=== PATIENT | female | born 1950 | race Caucasian/White ===

== ENCOUNTER 2017-07-06 14:41 | Observation (INO) ==
[2017-07-06] MEDS ORDERED: Aspirin 81 MG TAB.CHEW PO ONE (14:44)
--- NOTE | 2017-07-06 14:47 | Emergency Department Note ---
Disposition Clinical Impression: Chest pain Qualifiers: Chest pain type: unspecified Qualified Code(s): R07.9 - Chest pain, unspecified Disposition: Admitted As Inpatient Condition: Fair Referrals: Fredy Garcia MD [Primary Care Provider] - Forms: ED Satisfaction Letter Time of Disposition: 17:24 Chest Pain HPI - General Chief Complaint: ED Chest Pain Stated Complaint: chest pain Time Seen by Provider: 07/06/17 14:44 Source: patient, EMS Mode of arrival: EMS Limitations: no limitations Vital Signs Reviewed: Yes Nursing Notes Reviewed: Yes - History of Present Illness HPI Narrative: 67-year-old with a history of previous PA 2 comes in complaining of some intermittent chest pain. She had some chest pain couple days ago. She developed chest pain again today. Risk factors include hypertension, cigarette smoking, family history, high cholesterol. Pt complaint: chest pain Onset (ago): [employer] Duration: constant Onset: during rest Pain Location: substernal, left chest Severity: moderate Quality: tightness, aching, heaviness Pain Radiation: LUE, neck Worsens with: nothing Context: other (Dyspnea) Treatments prior to arrival chest pain: none - Related Data Home Medications Medication Instructions Recorded Confirmed Aspirin 81 mg PO DAILY 04/07/15 04/07/15 Atorvastatin Calcium [Lipitor] 1 tab PO DAILY 04/07/15 04/07/15 Calcium Carbonate [Calcium] 500 mg PO DAILY 04/07/15 04/07/15 Cetirizine HCl [Zyrtec] 1 tab PO DAILY 04/07/15 04/07/15 Clonazepam 1 tab PO DAILY PRN 04/07/15 04/07/15 Cyclobenzaprine HCl 10 tab PO BID PRN 04/07/15 04/07/15 Fluticasone Propionate Nasal 1 spray NS DAILY 04/07/15 04/07/15 [Flonase] Furosemide [Lasix] 20 mg PO DAILY 04/07/15 04/07/15 Hydrocodone/Acetaminophen [Victor 1 tab PO Q6H PRN 04/07/15 04/07/15 5-325 Tablet] Lansoprazole 1 tab PO DAILY 04/07/15 04/07/15 Lidocaine/Aloe Vera [[facility] Aloe 170 gm TP 04/07/15 04/07/15 Vera-Lidocaine Gel] Lisinopril/Hydrochlorothiazide 1 tab PO DAILY 04/07/15 04/07/15 [Lisinopril-Hctz 20-12.5 mg Tab] Metoprolol Succinate [Toprol Xl] 1 tab PO DAILY 04/07/15 04/07/15 Nicotine Patch 1 / DAILY 04/07/15 04/07/15 Potassium Chloride 10 meq PO DAILY 04/07/15 04/07/15 Venlafaxine HCl 1 tab PO DAILY 04/07/15 04/07/15 Previous Rx's Medication Instructions Recorded GuaiFENesin Liq [Robitussin Liq] 200 mg PO Q6HR 10 Days mls 04/09/15 Levofloxacin [Levaquin] 500 mg PO DAILY #7 tablet 04/09/15 predniSONE [Prednisone] 2.5 mg PO DAILY #7 tablet 04/09/15 methylPREDNISolone [Medrol] 4 mg PO DAILY 6 Days tablet 12/02/15 Meloxicam 7.5 mg PO DAILY 7 Days tablet 05/13/16 Diclofenac Sodium [Voltaren] 50 mg PO BID #30 tablet. 04/01/17 PredniSONE [Deltasone] 20 mg PO DAILY #12 tablet 04/01/17 Allergies Allergy/AdvReac Type Severity Reaction Status Date / Time clarithromycin [From Biaxin] Allergy Anaphylaxis Verified 12/02/15 16:04 codeine AdvReac Vomiting Verified 04/22/15 23:15 morphine AdvReac Anaphylaxis Verified 04/22/15 23:16 All systems ED: reviewed and negative except as stated. Constitutional: Denies: fever, chills, weakness, weight change Eyes: Denies: eye pain, eye discharge, vision change ENT ED: Denies: ear pain, throat pain, dental pain, hearing loss, epistaxis, congestion, dysphagia Cardiovascular: Reports: chest pain. Denies: palpitations, dyspnea on exertion , edema, syncope Respiratory: Reports: dyspnea. Denies: cough, wheezes, hemoptysis, stridor Gastrointestinal: Denies: abdominal pain, nausea, vomiting, diarrhea, constipation, hematemesis, melena, hematochezia Genitourinary: Denies: dysuria, frequency, hematuria, discharge Musculoskeletal: Denies: back pain, neck pain, arthralgia, myalgia Integumentary: Denies: rash, abrasion, lesions Neurological: Denies: headache, weakness, numbness, paresthesias, confusion, abnormal gait, vertigo Psychiatric: Denies: anxiety, depression, suicidal thoughts, homicidal thoughts , auditory hallucinations, visual hallucinations Endocrine: Denies: fatigue Hematological/Lymphatic: Denies: easy bleeding, easy bruising Allergic/Immunologic: Denies: facial swelling, urticaria Chest Pain PMH - Past Medical History Medical history: Reports: hypertension Surgical history: Reports: appendectomy, cholecystectomy, hysterectomy, other Psychiatric history: Reports: anxiety INFO SPECIALIST history: Reports: no INFO SPECIALIST history - Social History Smoking Status: Current every day smoker Alcohol use: Reports: none Drug use: Reports: none Physical Exam - General Limitations: no limitations General appearance: alert, in no apparent distress - Head Head exam: atraumatic, normocephalic, normal inspection - Eye Eye exam: Present: normal appearance, PERRL, EOMI - ENT ENT exam: normal exam, normal oropharynx, mucous membranes moist - Neck Neck exam: Present: normal inspection, full ROM, trachea midline - Chest Chest inspection: Present: normal inspection, symmetric chest wall rise - Respiratory Respiratory exam: Present: normal lung sounds bilaterally - Cardiovascular Cardiovascular exam: Present: regular rate, normal rhythm, normal heart sounds - Abdominal Exam Abdominal exam: Present: soft, Non-Tender. Absent: tenderness, distention, guarding, rebound, rigidity - Extremities Exam Extremities exam: Present: normal inspection, full ROM. Absent: tenderness, pedal edema - Expanded Lower Extremity Exam Neurovascular/Tendon exam: Absent: motor deficit, sensory deficit, tendon deficit Gait: observed and normal - Back Exam Back exam: Present: normal inspection, full ROM. Absent: tenderness - Neurological Exam Neurological exam: Present: alert, oriented X3 - Psychiatric Psychiatric exam: Present: normal affect, normal mood - Skin Skin exam: Present: warm, dry, intact, normal color Course - Reevaluation(s) Reevaluation #1: 67-year-old female who is complaining of chest pain with risk factors. Patient will be admitted for further evaluation and treatment. Time: 17:23 - Consultations Consultation #1: Discussed with , admit. Time: 17:23 Vital Signs Temperature 98.4 F 07/06/17 14:44 Pulse Rate 96 07/06/17 14:44 Respiratory Rate 16 07/06/17 14:44 Blood Pressure 141/78 07/06/17 14:44 O2 Sat by Pulse Oximetry 96 07/06/17 14:44 Temperature 98.4 F 07/06/17 14:44 Pulse Rate 98 07/06/17 16:38 Respiratory Rate 18 07/06/17 16:38 Blood Pressure 141/70 07/06/17 16:38 O2 Sat by Pulse Oximetry 98 07/06/17 16:38 Oxygen Delivery Oxygen Delivery Room Air Chest Pain - Lab Data Lab results reviewed: Yes I reviewed the patient's lab results. Result diagrams: 07/06/17 14:58 07/06/17 14:58 Lab Results 07/06/17 07/06/17 07/06/17 Range/Units 14:58 14:58 14:58 WBC 11.5 H (4.3-11.1) K/mcL RBC 5.23 H (3.82-4.97) M/mcL Hgb 14.9 (11.5-15.4) g/dL Hct 44.3 (35.3-44.9) % MCV 84.7 (83.0-100.0) fL MCH 28.5 (28.0-33.3) pg MCHC 33.6 (31.6-35.5) g/dL RDW 13.4 (11.5-14.5) % Plt Count 254 (140-400) K/mcL MPV 11.3 (9.4-12.4) fL Immature Gran % 0.4 (0-4) % Seg Neutrophils % 66.0 % Lymphocytes % 23.4 % Monocytes % 7.7 % Eosinophils % 2.2 % Basophils % 0.3 % Neutrophils # 7.6 (1.6-8.9) K/mcL Lymphocytes # 2.7 (0.6-4.6) K/mcL Monocytes # 0.9 (0.0-1.3) K/mcL Eosinophils # 0.3 (0.0-0.6) K/mcL Basophils # 0.0 (0.0-0.2) K/mcL PT 11.0 (9.4-12.1) Seconds INR 1.0 APTT 34.0 (26.0-36.0) Seconds Sodium (136-145) mEq/L Potassium (3.5-4.5) mEq/L Chloride (98-109) mEq/L Carbon Dioxide (19-29) mEq/L BUN (7-20) mg/dL Creatinine (0.57-1.11) mg/dL Est GFR ( Amer) (> 60) Est GFR (Non-Af Amer) (> 60) BUN/Creatinine Ratio (6-26) Glucose (70-99) mg/dL Calculated Osmolality (280-300) Calcium (8.6-10.8) mg/dL Troponin I (0-0.03) ng/mL B-Natriuretic Peptide 11 (0-100) pg/mL 07/06/17 07/06/17 Range/Units 14:58 14:58 WBC (4.3-11.1) K/mcL RBC (3.82-4.97) M/mcL Hgb (11.5-15.4) g/dL Hct (35.3-44.9) % MCV (83.0-100.0) fL MCH (28.0-33.3) pg MCHC (31.6-35.5) g/dL RDW (11.5-14.5) % Plt Count (140-400) K/mcL MPV (9.4-12.4) fL Immature Gran % (0-4) % Seg Neutrophils % % Lymphocytes % % Monocytes % % Eosinophils % % Basophils % % Neutrophils # (1.6-8.9) K/mcL Lymphocytes # (0.6-4.6) K/mcL Monocytes # (0.0-1.3) K/mcL Eosinophils # (0.0-0.6) K/mcL Basophils # (0.0-0.2) K/mcL PT (9.4-12.1) Seconds INR APTT (26.0-36.0) Seconds Sodium 141 (136-145) mEq/L Potassium 3.1 L (3.5-4.5) mEq/L Chloride 100 (98-109) mEq/L Carbon Dioxide 29 (19-29) mEq/L BUN 19 (7-20) mg/dL Creatinine 1.22 H (0.57-1.11) mg/dL Est GFR ( Amer) 53 L (> 60) Est GFR (Non-Af Amer) 44 L (> 60) BUN/Creatinine Ratio 16 (6-26) Glucose 138 H (70-99) mg/dL Calculated Osmolality 296 (280-300) Calcium 9.8 (8.6-10.8) mg/dL Troponin I 0.01 (0-0.03) ng/mL B-Natriuretic Peptide (0-100) pg/mL Heart Score - Score History: Moderately Suspicious EKG: Non Specific repolarisation Disturbance Age: Greater than 65 Risk Factors: Equal/Greater than 3 risk factor or history of atherosclerotic disease Troponin: Less than normal limit HEART Score Total: 6
[2017-07-06] MEDS ORDERED: Ipratropium/Albuterol Neb 3 ML IH ONE (14:48)
[2017-07-06 15:08] LABS: Basophils % 0.3 %; Eosinophils # 0.3 K/mcL (0.0-0.6); Eosinophils % 2.2 %; Hematocrit 44.3 % (35.3-44.9); Hemoglobin 14.9 g/dL (11.5-15.4); Immature Granulocytes % 0.4 % (0-4); Lymphocytes # 2.7 K/mcL (0.6-4.6); Lymphocytes % 23.4 %; Mean Corpuscular HGB Conc 33.6 g/dL (31.6-35.5); Mean Corpuscular Hemoglobin 28.5 pg (28.0-33.3); Mean Corpuscular Volume 84.7 fL (83.0-100.0); Mean Platelet Volume 11.3 fL (9.4-12.4); Monocytes # 0.9 K/mcL (0.0-1.3); Monocytes % 7.7 %; Neutrophils # 7.6 K/mcL (1.6-8.9); Platelet Count 254 K/mcL (140-400); Red Blood Count 5.23 M/mcL (3.82-4.97); Red Cell Distribution Width 13.4 % (11.5-14.5)
[2017-07-06 15:21] LABS: Calcium 9.8 mg/dL (8.6-10.8); Potassium 3.1 mEq/L (3.5-4.5)
[2017-07-06] MEDS ORDERED: Acetaminophen 325 MG TABLET PO PRN (21:48)
[2017-07-06] MEDS ORDERED: Naloxone 0.4 MG/ML INJ IVP PRN (21:48)
[2017-07-06] MEDS ORDERED: Ondansetron 4 MG/2 ML VIAL IVP PRN (21:48)
[2017-07-06] MEDS ORDERED: Ipratropium/Albuterol Neb 3 ML IH PRN (21:53)
--- NOTE | 2017-07-06 22:03 | Internal Med History&Physical ---
<Fredy Ching - Last Filed: 07/06/17 22:30> Date of Encounter: 07/06/17 Time of Encounter: 21:00 Assessment and Plan (1) Chest pain Current visit: Yes Status: Acute Pt. reports chest pain that began Wednesday as pain in central chest that radiated to center of back and down left arm. Patient has previous history of MIs 2 w/ o stent placement but no recent history of echocardiogram or stress test. Initial troponin 0.01. Will trend 2. Continuous cardiac telemetry. Supplemental O2 with titration and SPO2 monitoring. Nitroglycerin PRN. Cardiac diet. Echocardiogram. Nothing by mouth at midnight for a.m. nuclear pharm stress test. Monitor pt. and VS for signs of increasing cardiac and/or respiratory distress. Pt. at high risk for cardiac event based on current sx, previous MIs x2, hx, and risk factors. Observation. Qualifiers: Chest pain type: unspecified Qualified Code(s): R07.9 - Chest pain, unspecified (2) HTN (hypertension) Current visit: Yes Status: Chronic Hx of chronic HTN. Monitor pt. and VS. Continue patient's metoprolol and lisinopril/hydrochlorothiazide. Qualifiers: Hypertension type: essential hypertension Qualified Code(s): I10 - Essential (primary) hypertension (3) HLD (hyperlipidemia) Current visit: Yes Status: Chronic Hx of chronic HLD. Pt. does not currently take a statin. Lipid panel in a.m. labs. Add Lipitor 20 mg daily. Qualifiers: Hyperlipidemia type: pure hypercholesterolemia Qualified Code(s): E78.00 - Pure hypercholesterolemia, unspecified; E78.0 - Pure hypercholesterolemia (4) Previous myocardial infarction older than 8 weeks Current visit: Yes Status: Resolved Hx of previous VT x2. Patient placed on continuous cardiac telemetry. Continue patient's metoprolol, lisinopril/hydrochlorothiazide, and aspirin therapy. (5) Anxiety Current visit: Yes Status: Chronic Hx of chronic anxiety. Continue patient's Effexor and Klonopin. (6) DVT prophylaxis Current visit: Yes Status: Acute Bilateral SCDs on LEs for DVT prophylaxis d/t pts. report of melena yesterday. Fecal hemoccult ordered. Monitor pt. for signs of bleeding. Internal Medicine - H&P: HPI Chief complaint: Chest pain Admitted From: Emergency Dept Plans for Post Hospital Care: Home History of present illness: Ms. Gottlieb is a 67 year old female with medical history of hypertension, previous VT 2 without stent placement, melanoma, each LD presents to ED with chief complaint of centralized chest pain that began Wednesday and has been intermittent with pain on central chest radiating to central back and down left arm. Patient reports pain is followed by twinge sensation in chest retractors include tobacco abuse, HTN, and HLD. Patient reports nausea and vomiting on Wednesday with fever which resolved. Also reports black stool yesterday x1. Patient denies recent illness, fever, chills, abdominal pain, palpitations, changes in vision, weakness, numbness, tingling, headache, diarrhea, constipation, shortness of breath, pre-syncope, or syncope. Past Med Surg Social Fam HX - Past Medical History Source: patient, old records reviewed Medical history: hyperlipidemia, hypertension, myocardial infarction (x2), other (Melanoma) Psychiatric history: anxiety - Past Surgical History Surgical History: appendectomy, cholecystectomy, hysterectomy, other - Social History Smoking Status: Current every day smoker Packs per day: 1/2 PPD Smokeless Tobacco Status: No Alcohol use: none Drug use: none Current living situation: Home, With Family Activity Level: Independent ambulation Recent Out of Country Travel Within the Last 8 Weeks: No Exposure or Possible Exposure to Illness During Travel: No - Family History Father Adopted: No Race: Family Member Ethnicity: Non- Living Status: Age at : 96 Cause of : Old age Mother Race: Family Member Ethnicity: Non- Living Status: Age at : 72 Cause of : in surgery Hx Family Cardiac Disorders: Yes (CAD) Brother Race: Family Member Ethnicity: Non- Living Status: Still Living Hx Family Cancer: Yes (Melanoma) Sister Race: Family Member Ethnicity: Non- Living Status: Still Living Hx Family Cancer: Yes (Bone) Internal Medicine - H&P: Meds Aspirin 81 mg PO DAILY 04/07/15 [History] Cetirizine HCl [Zyrtec] 10 mg PO DAILY 04/07/15 [History] Cyclobenzaprine [Flexeril] 10 mg PO BID #0 04/07/15 [History] Lansoprazole [Prevacid] 30 mg PO DAILY #0 04/07/15 [History] Lisinopril/Hydrochlorothiazide [Lisinopril-Hctz 20-12.5 mg Tab] 1 tab PO BID 05/14 [History] clonazePAM [Klonopin] 1 mg PO BID #0 04/07/15 [History] Albuterol Sulfate [Ventolin Hfa] 2 puff IH Q4H PRN 07/06/17 [History] Metoprolol XL (24 HR) Succ [Toprol XL] 25 mg PO DAILY 07/06/17 [History] Venlafaxine XR (24 HR) [Effexor XR] 150 mg PO DAILY 07/06/17 [History] 3 Allergy/AdvReac Type Severity Reaction Status Date / Time clarithromycin [From Biaxin] Allergy Anaphylaxis Verified 12/02/15 16:04 codeine AdvReac Vomiting Verified 04/22/15 23:15 morphine AdvReac Anaphylaxis Verified 04/22/15 23:16 All Systems PM: A 10-system review of systems was performed and is negative for pertinent findings except as documented above in the HPI. - Constitutional Constitutional: no chills, no fever(s), no night sweats - EENT Eyes: no change in vision, no discharge, no pain, no photophobia Ears: no ear discharge, no ear pain, no tinnitus Nose, mouth and throat: no dysphagia, no nasal discharge, no neck pain, no sore throat - Breasts Breasts: as per HPI - Cardiovascular Cardiovascular ROS IM: as per HPI, chest pain - Respiratory Respiratory: no cough, no dyspnea, no wheezing, no excessive phlegm production - Gastrointestinal Gastrointestinal: as per HPI, melena, nausea, vomiting, no abdominal pain, no diarrhea, no hematemesis, no hematochezia - Genitourinary Genitourinary: no change in urinary stream, no dysuria, no flank pain, no hematuria Menstruation: post hysterectomy - Musculoskeletal Musculoskeletal ROS IM: no numbness, no tingling - Integumentary Integumentary IM: no rash, no unusual bruising - Neurological Neurological ROS: no confusion, no convulsions, no focal weakness, no numbness, no tingling, no tremor(s) - Psychiatric Psychiatric: as per HPI - Endocrine Endocrine IM: as per HPI - Hematologic/Lymphatic Hematologic/Lymphatic: no easy bruising - Allergic/Immunologic Allergic/Immunologic: as per HPI - Constitutional Vitals: Temp Pulse Resp BP Pulse Ox 98.4 F 95 18 130/84 95 07/06/17 14:44 07/06/17 20:13 07/06/17 20:13 07/06/17 20:13 07/06/17 20:13 General appearance: Present: cooperative, A&O X 3, pleasant, no acute distress, answers questions appropriately - Head Head exam: Present: atraumatic, normocephalic - Eye Eye exam: Present: PERRL, conjuntiva pink, sclera anicteric Pupils: Present: PERRL - ENT ENT exam: Present: normal exam, normal external ear exam - Neck Neck exam general surgery: Present: normal inspection, supple, trachea midline. Absent: lymphadenopathy - Cardiovascular Cardiovascular exam: Present: RRR, +S1, +S2. Absent: diastolic murmur, gallop, rubs, systolic murmur - GI/Abdominal GI/Abdominal exam: Present: normal bowel sounds, soft, no peritoneal signs. Absent: distended, tenderness - Rectal Rectal exam: Present: deferred - Additional comments: exam deferred. - Extremities Exam Extremities exam: Present: warm, radial pulses palpable and symmetrical. Absent : calf tenderness, cyanotic, pedal edema - Back Exam Back exam: Present: normal inspection - Neurological Exam Neurological exam: Present: CN II-XII intact, oriented X3, no focal deficits. Absent: pronater drift, facial droop, speech deficit - Psychiatric Psychiatric exam: Present: normal affect, normal mood - Skin Skin exam: Present: dry, intact Internal Med - H&P Results - Labs CBC & Chem 7: 07/06/17 14:58 07/06/17 14:58 Labs: Cardiac Enzymes 07/06/17 Range/Units 17:59 Troponin I 0.01 (0-0.03) ng/mL - EKG Data EKG shows normal: sinus rhythm - EKG Data Prior EKG available for review: no Interpretation IM: normal EKG EKG comments: 07/06/17 22:14 EKG dated 07/06/17 shows sinus rhythm and normal ECG. - Diagnostic Studies Chest x-ray Additional comments: Impressions Chest X-Ray 07/06/17 14:44 IMPRESSION: Mild asymmetric opacity within the right upper lung. While this may be artifactual due to overlying structures or scarring, lung nodule not excluded. Dedicated chest CT recommended for further evaluation on a nonemergent basis. D/ / Edyta Soriano MD / Edyta Soriano MD Interpreting Provider: Edyta Soriano MD <LaurenGerson - Last Filed: 07/07/17 03:26> Date of Encounter: 07/07/17 Internal Medicine - H&P: HPI History of present illness: Ms. Gottlieb is a 67 year old female All Systems PM: A 10-system review of systems was performed and is negative for pertinent findings except as documented above in the HPI. - Constitutional Vitals: Temp Pulse Resp BP Pulse Ox 97.5 F L 92 16 119/68 94 07/06/17 23:37 07/06/17 23:37 07/06/17 23:37 07/06/17 23:37 07/06/17 23:37 Internal Med - H&P Results - Labs CBC & Chem 7: 07/06/17 14:58 07/06/17 14:58 Labs: Cardiac Enzymes 07/06/17 07/06/17 Range/Units 17:59 22:44 Troponin I 0.01 0.01 (0-0.03) ng/mL - Attending Attestation Discussed with RASHMI and agree with assessment and plan below Cardiac biomarkers are negative 3 Stress tests and echocardiogram pending to rule out ACS Will give potassium replacements for hypokalemia.
[2017-07-06] MEDS ORDERED: Nitroglycerin 0.4 MG TAB.SUBL SL PRN (22:22)
[2017-07-07] MEDS: Pantoprazole 40 MG VIAL IVP SCH ×2 (01:20→06:09)
[2017-07-07] MEDS: clonazePAM 1 MG TABLET PO SCH ×3 (01:23→19:44)
[2017-07-07 05:38] LABS: Basophils # 0.1 K/mcL (0.0-0.2); Basophils % 0.4 %; Eosinophils # 0.3 K/mcL (0.0-0.6); Eosinophils % 2.6 %; Hematocrit 40.3 % (35.3-44.9); Hemoglobin 13.6 g/dL (11.5-15.4); Immature Granulocytes % 0.4 % (0-4); Lymphocytes # 3.4 K/mcL (0.6-4.6); Lymphocytes % 29.2 %; Mean Corpuscular HGB Conc 33.7 g/dL (31.6-35.5); Mean Corpuscular Hemoglobin 28.2 pg (28.0-33.3); Mean Corpuscular Volume 83.6 fL (83.0-100.0); Mean Platelet Volume 11.3 fL (9.4-12.4); Monocytes # 1.1 K/mcL (0.0-1.3); Monocytes % 8.9 %; Neutrophils # 6.9 K/mcL (1.6-8.9); Platelet Count 252 K/mcL (140-400); Red Blood Count 4.82 M/mcL (3.82-4.97); Red Cell Distribution Width 13.3 % (11.5-14.5); Segmented Neutrophils % 58.5 %
[2017-07-07 06:06] LABS: Albumin 3.4 g/dL (3.5-5.0); Bilirubin,Total 0.6 mg/dL (0.2-1.2); Calcium 9.1 mg/dL (8.6-10.8); Chol/HDL Ratio 5.6 (0-4.9); Globulin 3.5 g/dL (2.4-3.5); Magnesium 1.5 mg/dL (1.6-2.6); Total Protein 6.9 g/dL (6.0-8.3)
[2017-07-07] MEDS ORDERED: Regadenoson 0.4 MG/5 ML SYRINGE IVP ONE (06:07)
[2017-07-07] MEDS ORDERED: 0.9 % Sodium Chloride 500 ML ONE (06:16)
[2017-07-07] MEDS ORDERED: clonazePAM 1 MG TABLET PO SCH (09:00)
[2017-07-07] MEDS: Loratadine 10 MG TABLET PO SCH (11:01)
[2017-07-07] MEDS: Venlafaxine XR (24 HR) 150 MG CAP.ER.24H PO SCH (11:01)
[2017-07-07] MEDS: Aspirin 81 MG TAB.CHEW PO SCH (11:01)
[2017-07-07] MEDS: Metoprolol XL (24 HR) Succ 25 MG TAB.ER.24H PO SCH (11:02)
[2017-07-07] MEDS: Lisinopril-HCTZ 20-12.5mg TABLET PO SCH ×2 (11:02→19:44)
[2017-07-07] MEDS: 0.9 % Sodium Chloride 1,000 ML IVC SCH (11:06)
--- NOTE | 2017-07-07 15:04 | Internal Med Progress Note ---
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 Current Visit: Yes Status: Acute (3) Chest pain Current Visit: Yes Status: Acute Qualifiers: Chest pain type: unspecified Qualified Code(s): R07.9 - Chest pain, unspecified (4) HTN (hypertension) Current Visit: Yes Status: Chronic Qualifiers: Hypertension type: essential hypertension Qualified Code(s): I10 - Essential (primary) hypertension (5) HLD (hyperlipidemia) Current Visit: Yes Status: Chronic Qualifiers: Hyperlipidemia type: pure hypercholesterolemia Qualified Code(s): E78.00 - Pure hypercholesterolemia, unspecified; E78.0 - Pure hypercholesterolemia - Subjective Interval history: Admitted for left-sided chest pain radiating to her left and shoulder and neck and also going to her back. 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 Her previous stress tests were also negative. Today her stress test is negative showing an EF of about 70% and echocardiogram confirms the same without any wall valvular abnormality. Specifically pinpoints to reproducible pain in the lower substernal area at the costovertebral chondral junction at 6, 7, and 8 ribs. Chest pain is reproducible and very tender in that area mild tenderness in epigastrium though. No rebound no organomegaly. Also complaining of left shoulder pain and unable to lift or abduct her left arm. Examination shows tenderness at deltoid and trapezius on the left side. Physical therapy ordered as well as ibuprofen. Left shoulder x-ray ordered. Chest pain is very reproducible after he applied pressure on the costochondral joints and ribs. Very atypical for angina. Apparently having some remodeling at home but denies any strenuous activity or lifting any heavy weights. Chest x-ray showed right upper lobe infiltrates of unclear etiology. A CT chest with contrast ordered to rule out any malignancy. She has history of melanoma which was surgically treated in the past. - Constitutional Vitals: Temp Pulse Resp BP Pulse Ox 97.8 F 85 18 132/90 98 07/07/17 11:26 07/07/17 11:26 07/07/17 11:26 07/07/17 11:26 07/07/17 11:26 General appearance: Present: cooperative, A&O X 3, pleasant, no acute distress, answers questions appropriately - Head Head exam: Present: atraumatic, normocephalic - Eye Eye exam: Present: PERRL, conjuntiva pink, sclera anicteric Pupils: Present: PERRL - Neck Neck exam general surgery: Present: supple, trachea midline. Absent: lymphadenopathy - Respiratory Respiratory exam: Present: CTAB. Absent: accessory muscle use, rales, rhonchi, wheezes Additional comments: Tenderness at left sixth, seventh and eighth costochondral joint which are very tender and easily reproducible and the pain extends into the rib cage. However still have symmetrical breathing. No wheezing or pleural rub - Cardiovascular Cardiovascular exam: Present: RRR, +S1, +S2. Absent: diastolic murmur, gallop, rubs, systolic murmur - GI/Abdominal GI/Abdominal exam: Present: normal bowel sounds, soft, no peritoneal signs. Absent: distended, tenderness - Extremities Exam Extremities exam: Present: warm, radial pulses palpable and symmetrical. Absent : calf tenderness, cyanotic, pedal edema - Neurological Exam Neurological exam: Present: CN II-XII intact, oriented X3, no focal deficits. Absent: pronater drift, facial droop, speech deficit - Skin Skin exam: Present: dry, intact Internal Medicine: Result - Labs CBC & Chem 7: 07/07/17 04:44 07/07/17 04:44 Labs: Short CBC 07/07/17 Range/Units 04:44 WBC 11.8 H (4.3-11.1) K/mcL Hgb 13.6 (11.5-15.4) g/dL Hct 40.3 (35.3-44.9) % Plt Count 252 (140-400) K/mcL Neutrophils # 6.9 (1.6-8.9) K/mcL BMP 07/07/17 04:44 Sodium 140 Potassium 3.0 L Chloride 103 Carbon Dioxide 24 BUN 21 H Creatinine 1.14 H Glucose 114 H Calcium 9.1 Cardiac Enzymes 07/06/17 07/06/17 07/07/17 Range/Units 17:59 22:44 04:44 Troponin I 0.01 0.01 0.00 (0-0.03) ng/mL Liver Function 07/07/17 Range/Units 04:44 Total Bilirubin 0.6 (0.2-1.2) mg/dL AST 21 (5-34) Units/L ALT 21 (0-55) Units/L Alkaline Phosphatase 118 (38-126) Units/L Albumin 3.4 L (3.5-5.0) g/dL - ABG Interpretation ABG results: PT/INR, D-dimer PT 11.0 Seconds (9.4-12.1) 07/06/17 14:58 - Impressions Impressions Echocardiogram 07/07/17 21:50 Impressions: LVEF 60%. Not all LV segments were well visualized, but overall function appears normal. Normal LV chamber size and wall thickness. Mild left ventricular diastolic dysfunction. Normal right ventricular structure and function. Unable to estimate RVSP due to lack of TR jet. No significant valvular dysfunction. Left Ventricular Wall Motion: Rest Echo Findings The apical inferior, mid inferior and basal inferior wheeler were not visualized. All other wall segments showed normal motion. Findings: Study Quality * Technically sub-optimal due to poor echocardiographic windows. ECG Findings * Normal sinus rhythm. Left Ventricle * LVEF 60%. Not all LV segments were well visualized, but overall function appears normal. * Normal LV chamber size and wall thickness. * Mild left ventricular diastolic dysfunction. Right Ventricle * Normal right ventricular structure and function. Left Atrium * Normal left atrial size. Right Atrium * Normal right atrial size. Interatrial Septum * Interatrial septum not well evaluated. Aortic Valve * Aortic valve not well visualized. * No aortic regurgitation. * No aortic stenosis. Mitral Valve * Normal mitral valve structure and function. * No mitral regurgitation. * No mitral stenosis. Tricuspid Valve * Normal tricuspid valve structure and function. * No tricuspid regurgitation. * Unable to estimate RVSP due to lack of TR jet. Pulmonic Valve * Pulmonic valve not well visualized. * No pulmonic regurgitation. Aorta * Normally sized aortic root. Pericardium * The pericardium appears normal. IVC * Normal IVC dimensions and inspiratory collapse. Pulmonary Artery * Normal visualized portions of the main pulmonary artery. Consult Discharge Plan - Plan Referrals: Fredy Garcia MD [Primary Care Provider] - 07/13/17 1:00 pm
[2017-07-07] MEDS: Ibuprofen 600 MG TABLET PO SCH ×2 (15:53→23:45)
--- NOTE | 2017-07-07 19:08 | Electrocardiograph Report ---
[place] [id number] Test Date: 2017-07-06 Pat Name: Netta Gottlieb Department: 102 Room: 3B21 Gender: F Brick Tender: Tmr : 1950 Requested By: Raj Bravo Order Number: [id number] Reading MD: Erik Veras MD Measurements Intervals [place] Rate: 96 P: 62 ND: 139 QRS: 42 QRSD: 89 T: 46 QT: 362 QTc: 415 Interpretive Statements SINUS RHYTHM BASELINE ARTIFACT Electronically Signed On 07-07-2017 19:06:55 EST by Erik Veras MD
[2017-07-08] MEDS: 0.9 % Sodium Chloride 1,000 ML IVC SCH (03:25)
[2017-07-08 04:51] LABS: Basophils % 0.4 %; Eosinophils # 0.3 K/mcL (0.0-0.6); Eosinophils % 3.7 %; Hematocrit 35.2 % (35.3-44.9); Immature Granulocytes % 0.4 % (0-4); Lymphocytes # 3.3 K/mcL (0.6-4.6); Lymphocytes % 38.5 %; Mean Corpuscular Hemoglobin 28.1 pg (28.0-33.3); Mean Corpuscular Volume 85.2 fL (83.0-100.0); Mean Platelet Volume 11.2 fL (9.4-12.4); Monocytes # 0.7 K/mcL (0.0-1.3); Monocytes % 8.3 %; Neutrophils # 4.2 K/mcL (1.6-8.9); Platelet Count 199 K/mcL (140-400); Red Blood Count 4.13 M/mcL (3.82-4.97); Red Cell Distribution Width 13.1 % (11.5-14.5); Segmented Neutrophils % 48.7 %
[2017-07-08 05:04] LABS: Hemoglobin 11.6 g/dL (11.5-15.4)
[2017-07-08 05:17] LABS: Bilirubin,Total 0.5 mg/dL (0.2-1.2); Calcium 8.3 mg/dL (8.6-10.8); Globulin 2.9 g/dL (2.4-3.5); Potassium 3.8 mEq/L (3.5-4.5); Total Protein 5.9 g/dL (6.0-8.3)
[2017-07-08] MEDS: Pantoprazole 40 MG VIAL IVP SCH (05:45)
[2017-07-08 07:09] VITALS: BP 129/69
--- NOTE | 2017-07-08 08:22 | Discharge Summary ---
Date of Encounter: 07/08/17 Time of Encounter: 08:17 - Discharge Diagnosis (1) Costochondritis, acute Priority: Secondary Status: Acute (2) 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 Priority: Secondary Status: Acute (3) Chest pain Priority: Primary Status: Acute Qualifiers: Chest pain type: unspecified Qualified Code(s): R07.9 - Chest pain, unspecified (4) HTN (hypertension) Priority: Secondary Status: Chronic Qualifiers: Hypertension type: essential hypertension Qualified Code(s): I10 - Essential (primary) hypertension (5) HLD (hyperlipidemia) Priority: Secondary Status: Chronic Qualifiers: Hyperlipidemia type: pure hypercholesterolemia Qualified Code(s): E78.00 - Pure hypercholesterolemia, unspecified; E78.0 - Pure hypercholesterolemia - Discharge Medications Prescriptions: Atorvastatin [Lipitor] 10 mg PO HS #30 tablet Lisinopril [Zestril] 20 mg PO BID #60 tablet Home Medications: Aspirin 81 mg PO DAILY 04/07/15 [History] Cetirizine HCl [Zyrtec] 10 mg PO DAILY 04/07/15 [History] Lansoprazole [Prevacid] 30 mg PO DAILY #0 04/07/15 [History] clonazePAM [Klonopin] 1 mg PO BID #0 04/07/15 [History] Albuterol Sulfate [Ventolin Hfa] 2 puff IH Q4H PRN 07/06/17 [History] Metoprolol XL (24 HR) Succ [Toprol Xl] 25 mg PO DAILY 07/06/17 [History] Venlafaxine XR (24 HR) [Effexor Xr] 150 mg PO DAILY 07/06/17 [History] Acetaminophen [Tylenol] 650 mg PO Q6HR PRN tablet 07/08/17 [Rx] Atorvastatin [Lipitor] 10 mg PO HS #30 tablet 07/08/17 [Rx] Lisinopril [Zestril] 20 mg PO BID #60 tablet 07/08/17 [Rx] Allergies/Adverse Reactions: 3 Allergy/AdvReac Type Severity Reaction Status Date / Time clarithromycin [From Biaxin] Allergy Anaphylaxis Verified 12/02/15 16:04 codeine AdvReac Vomiting Verified 04/22/15 23:15 morphine AdvReac Anaphylaxis Verified 04/22/15 23:16 Procedures/tests Complete & Pending: Procedures Performed prior 72 hours Category Date Time Status CT chest w con [CT] Routine Cat Scan 07/07/17 14:30 Completed NM robyn perf SPECT multi [NM] Routine Exams 07/07/17 10:00 Taken EV echocardiogram Stat Y 07/07/17 21:50 Completed SP pharm nuclear stress Stat Y 07/07/17 07:10 Completed Date of admission: 07/06/17 17:58 Primary care physician: Fredy Garcia MD Consults: 07/07/17 14:56 PT [Consult to Physical Therapy] [CONS] Routine Comment: Evaluate, develop and implement POC Reason for Consult: Left shoulder rotator cuff injury Discharging clinician: Della Keen Anticipated date of discharge: 07/08/17 - Patient Status Disposition: Home, Self-Care Condition: Fair Overall status at discharge: patient is progressing back to baseline - Discharge Instructions Follow Up With: Fredy Garcia MD [Primary Care Provider] - - Diet and Activity Activity: resume usual activities as tolerated Diet: advance to your usual diet, low fat, low cholesterol, low salt diet Hospital course: Ms. Gottlieb is a 67 year old female Admitted for left-sided chest pain radiating to her left and shoulder and neck and also going to her back. 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 Chest pain is very reproducible after he applied pressure on the costochondral joints and ribs. Very atypical for angina. Apparently having some remodeling at home but denies any strenuous activity or lifting any heavy weights. Her previous stress tests were also negative. Today her stress test is negative showing an EF of about 70% and echocardiogram confirms the same without any wall motion abnormality or valvular abnormality. She has mild diastolic dysfunction. Specifically pinpoints to reproducible pain in the lower substernal area at the costovertebral chondral junction at 6, 7, and 8 ribs. Chest pain is reproducible and very tender in that area mild tenderness in epigastrium though. No rebound no organomegaly. Also complaining of left shoulder pain and unable to lift or abduct her left arm. Examination shows tenderness at deltoid and trapezius on the left side. Physical therapy ordered as well as ibuprofen. Left shoulder x-ray showed no fracture or dislocation but shoulder joint osteoarthritis. She is referred to sports medicine for possible steroid injection and further care. Chest x-ray showed right upper lobe nodularity of unclear etiology. A CT chest with contrast was done which showed multiple nodules the largest around 1 cm. She is recommended for 6 months follow-up CT chest and referred to dovetail machine operator as outpatient for further evaluation. Considering history of COPD and nicotine abuse possibility of malignancy. Discuss care plan with patient and advised her to follow with the sports medicine and pulmonology and advised nursing floor staff to schedule appointments for her. She should also follow with her family doctor.. - Time Spent with Patient Total time spent providing and/or coordinating discharge services: Greater than 30 minutes - Constitutional Vitals: Temp Pulse Resp BP Pulse Ox 98.4 F 82 16 129/69 94 07/08/17 07:08 07/08/17 07:08 07/08/17 07:08 07/08/17 07:08 07/08/17 07:08 General appearance: Present: cooperative, A&O X 3, pleasant, no acute distress, answers questions appropriately - Head Head exam: Present: atraumatic, normocephalic - Eye Eye exam: Present: PERRL, conjuntiva pink, sclera anicteric Pupils: Present: PERRL - Neck Neck exam general surgery: Present: supple, trachea midline. Absent: lymphadenopathy - Respiratory Respiratory exam: Present: CTAB. Absent: accessory muscle use, rales, rhonchi, wheezes - Cardiovascular Cardiovascular exam: Present: RRR, +S1, +S2. Absent: diastolic murmur, gallop, rubs, systolic murmur - GI/Abdominal GI/Abdominal exam: Present: normal bowel sounds, soft, no peritoneal signs. Absent: distended, tenderness - Extremities Exam Extremities exam: Present: warm, radial pulses palpable and symmetrical. Absent : calf tenderness, cyanotic, pedal edema Additional comments: Bilateral shoulder joint examination showed restricted range of motion more on the left than on the right with reduce abduction and some tenderness on the left however no dislocation. Neuro neurovascular status otherwise is stable - Neurological Exam Neurological exam: Present: CN II-XII intact, oriented X3, no focal deficits. Absent: pronater drift, facial droop, speech deficit - Skin Skin exam: Present: dry, intact
[2017-07-08] MEDS: Venlafaxine XR (24 HR) 150 MG CAP.ER.24H PO SCH (08:41)
[2017-07-08] MEDS: clonazePAM 1 MG TABLET PO SCH (08:41)
[2017-07-08] MEDS: Loratadine 10 MG TABLET PO SCH (08:42)
[2017-07-08] MEDS: Lisinopril-HCTZ 20-12.5mg TABLET PO SCH (08:42)
[2017-07-08] MEDS: Metoprolol XL (24 HR) Succ 25 MG TAB.ER.24H PO SCH (08:42)
[2017-07-08] MEDS: Ibuprofen 600 MG TABLET PO SCH (08:42)
[2017-07-08] MEDS: Aspirin 81 MG TAB.CHEW PO SCH (08:42)
== END 2017-07-08 12:39 | disposition home or self-care (01) ==
LOC: EMEROO 14:41 → 3BNU 14:41 → 3ANU 18:36 → 3BNU 07-07 00:32
PROVIDERS: ADMIT Internal Medicine; ATTEND Registered Nurse

== ENCOUNTER 2017-07-30 03:24 | Observation (INO) ==
[2017-07-30 03:45] LABS: Basophils # 0.1 K/mcL (0.0-0.2); Basophils % 0.3 %; Eosinophils # 0.2 K/mcL (0.0-0.6); Eosinophils % 1.5 %; Hematocrit 39.1 % (35.3-44.9); Hemoglobin 13.4 g/dL (11.5-15.4); Immature Granulocytes % 0.8 % (0-4); Lymphocytes # 2.2 K/mcL (0.6-4.6); Mean Corpuscular HGB Conc 34.3 g/dL (31.6-35.5); Mean Corpuscular Hemoglobin 28.7 pg (28.0-33.3); Mean Corpuscular Volume 83.7 fL (83.0-100.0); Mean Platelet Volume 10.4 fL (9.4-12.4); Monocytes # 0.8 K/mcL (0.0-1.3); Monocytes % 5.1 %; Neutrophils # 11.5 K/mcL (1.6-8.9); Platelet Count 209 K/mcL (140-400); Red Blood Count 4.67 M/mcL (3.82-4.97); Red Cell Distribution Width 13.1 % (11.5-14.5); Segmented Neutrophils % 77.3 %
[2017-07-30 03:53] LABS: Prothrombin Time 10.2 Seconds (9.4-12.1)
[2017-07-30 03:55] LABS: Activated Partial Thrombo Time 28.5 Seconds (26.0-36.0)
[2017-07-30 03:56] LABS: Potassium 3.9 mEq/L (3.5-4.5)
--- NOTE | 2017-07-30 04:31 | Emergency Department Note ---
Disposition Clinical Impression: Syncope and collapse Chest pain Qualifiers: Chest pain type: unspecified Qualified Code(s): R07.9 - Chest pain, unspecified Disposition: Admitted As Inpatient Condition: Good Chest Pain HPI - General Chief Complaint: ED Chest Pain Stated Complaint: chest pain Time Seen by Provider: 07/30/17 03:36 Source: patient, EMS Limitations: no limitations Vital Signs Reviewed: Yes Nursing Notes Reviewed: Yes - History of Present Illness HPI Narrative: Patient presents today for evaluation of chest pain that started 30 minutes prior to arrival. Patient's chest pain she describes is in center of her chest going to the left arm. Patient describes getting up to get a glass water when she felt dizzy and lightheaded. Patient states that she had a syncopal episode and then had to crawl to the couch that she could call EMS for help. Patient was recently admitted for chest pain. She had negative nuclear stress test. Echocardiogram performed. Patient's chest pain has mostly resolved during our evaluation. Severity scale (1-10): 2 - Related Data Home Medications Medication Instructions Recorded Confirmed Aspirin 81 mg PO DAILY 04/07/15 07/30/17 Cetirizine HCl [Zyrtec] 10 mg PO DAILY 04/07/15 07/30/17 Lansoprazole [Prevacid] 30 mg PO DAILY #0 04/07/15 07/30/17 clonazePAM [Klonopin] 1 mg PO BID #0 04/07/15 07/30/17 Albuterol Sulfate [Ventolin Hfa] 2 puff IH Q4H PRN 07/06/17 07/30/17 Metoprolol XL (24 HR) Succ [Toprol 25 mg PO DAILY 07/06/17 07/30/17 Xl] Venlafaxine XR (24 HR) [Effexor Xr] 150 mg PO DAILY 07/06/17 07/30/17 Previous Rx's Medication Instructions Recorded Acetaminophen [Tylenol] 650 mg PO Q6HR PRN tablet 07/08/17 Atorvastatin [Lipitor] 10 mg PO HS #30 tablet 07/08/17 Lisinopril [Zestril] 20 mg PO BID #60 tablet 07/08/17 Allergies Allergy/AdvReac Type Severity Reaction Status Date / Time clarithromycin [From Biaxin] Allergy Anaphylaxis Verified 12/02/15 16:04 codeine AdvReac Vomiting Verified 04/22/15 23:15 morphine AdvReac Anaphylaxis Verified 04/22/15 23:16 Review of Systems: CONSTITUTIONAL: No weight loss, fever, chills, weakness or fatigue. HEENT: Eyes: No visual changes. Ears, Nose, Throat: No hearing loss, difficulty talking or unable to swallow. SKIN: No rash or itching. CARDIOVASCULAR: chest pain. No palpitations or edema. RESPIRATORY: No shortness of breath, cough or sputum. GASTROINTESTINAL: No anorexia, nausea, vomiting or diarrhea. No abdominal pain or blood. GENITOURINARY: No burning on urination or hematuria. NEUROLOGICAL: Syncope. Dizziness No headache, paralysis, ataxia, numbness or tingling in the extremities. No change in bowel or bladder control. MUSCULOSKELETAL: No muscle pain, back pain, joint pain or stiffness. Chest Pain PMH - Past Medical History Medical history: Reports: hyperlipidemia, hypertension, myocardial infarction, other Surgical history: Reports: appendectomy, cholecystectomy, hysterectomy, other Psychiatric history: Reports: anxiety RESIDENTIAL SPECIALIST history: Reports: no RESIDENTIAL SPECIALIST history - Social History Smoking Status: Current every day smoker Alcohol use: Reports: none Drug use: Reports: none Physical Exam General: Well appearing, nontoxic, no acute distress Head: Normocephalic Atraumatic Eyes: PERRL, EOMI ENT: Airway patent, no stridor Neck: supple, no meningismus Chest: Lungs clear to auscultation bilateral Cardiac: Regular rate and rhythm, no murmurs, rubs or gallops Abdomen: soft, nontender, nondistended; no guarding, rebound, or tenderness to percussion Musculoskeletal: Calves symmetric, nontender, no palpable cord Skin: No rash, normal skin tone Neuro: Alert and Oriented to person, place, and time; No focal deficit, CN 2-12 symmetric and intact - General Limitations: no limitations General appearance: alert, in no apparent distress Course - Reevaluation(s) Reevaluation #1: Patient's overall symptoms improved. Due to the history of chest pain and syncope we will admit her for further observation. - Consultations Consultation #1: Discussed with hospitalist. Patient accepted for admission. Vital Signs Temperature 97.7 F 07/30/17 03:25 Pulse Rate 98 07/30/17 03:25 Respiratory Rate 16 07/30/17 03:25 Blood Pressure 107/68 07/30/17 03:25 O2 Sat by Pulse Oximetry 96 07/30/17 03:25 Temperature 97.7 F 07/30/17 03:25 Pulse Rate 82 07/30/17 05:26 Respiratory Rate 16 07/30/17 06:06 Blood Pressure 108/57 07/30/17 06:06 O2 Sat by Pulse Oximetry 97 07/30/17 05:26 Oxygen Delivery Oxygen Delivery Room Air Chest Pain - Lab Data Result diagrams: 07/30/17 03:37 07/30/17 03:37 Lab Results 07/30/17 07/30/17 07/30/17 Range/Units 03:37 03:37 03:37 WBC 14.9 H (4.3-11.1) K/mcL RBC 4.67 (3.82-4.97) M/mcL Hgb 13.4 (11.5-15.4) g/dL Hct 39.1 (35.3-44.9) % MCV 83.7 (83.0-100.0) fL MCH 28.7 (28.0-33.3) pg MCHC 34.3 (31.6-35.5) g/dL RDW 13.1 (11.5-14.5) % Plt Count 209 (140-400) K/mcL MPV 10.4 (9.4-12.4) fL Immature Gran % 0.8 (0-4) % Seg Neutrophils % 77.3 % Lymphocytes % 15.0 % Monocytes % 5.1 % Eosinophils % 1.5 % Basophils % 0.3 % Neutrophils # 11.5 H (1.6-8.9) K/mcL Lymphocytes # 2.2 (0.6-4.6) K/mcL Monocytes # 0.8 (0.0-1.3) K/mcL Eosinophils # 0.2 (0.0-0.6) K/mcL Basophils # 0.1 (0.0-0.2) K/mcL PT 10.2 (9.4-12.1) Seconds INR 1.0 APTT 28.5 (26.0-36.0) Seconds Sodium (136-145) mEq/L Potassium (3.5-4.5) mEq/L Chloride (98-109) mEq/L Carbon Dioxide (19-29) mEq/L BUN (7-20) mg/dL Creatinine (0.57-1.11) mg/dL Est GFR ( Amer) (> 60) Est GFR (Non-Af Amer) (> 60) BUN/Creatinine Ratio (6-26) Glucose (70-99) mg/dL Calculated Osmolality (280-300) Calcium (8.6-10.8) mg/dL Troponin I (0-0.03) ng/mL B-Natriuretic Peptide 18 (0-100) pg/mL 07/30/17 07/30/17 Range/Units 03:37 03:37 WBC (4.3-11.1) K/mcL RBC (3.82-4.97) M/mcL Hgb (11.5-15.4) g/dL Hct (35.3-44.9) % MCV (83.0-100.0) fL MCH (28.0-33.3) pg MCHC (31.6-35.5) g/dL RDW (11.5-14.5) % Plt Count (140-400) K/mcL MPV (9.4-12.4) fL Immature Gran % (0-4) % Seg Neutrophils % % Lymphocytes % % Monocytes % % Eosinophils % % Basophils % % Neutrophils # (1.6-8.9) K/mcL Lymphocytes # (0.6-4.6) K/mcL Monocytes # (0.0-1.3) K/mcL Eosinophils # (0.0-0.6) K/mcL Basophils # (0.0-0.2) K/mcL PT (9.4-12.1) Seconds INR APTT (26.0-36.0) Seconds Sodium 133 L (136-145) mEq/L Potassium 3.9 (3.5-4.5) mEq/L Chloride 94 L (98-109) mEq/L Carbon Dioxide 27 (19-29) mEq/L BUN 17 (7-20) mg/dL Creatinine 1.12 H (0.57-1.11) mg/dL Est GFR ( Amer) 59 L (> 60) Est GFR (Non-Af Amer) 49 L (> 60) BUN/Creatinine Ratio 15 (6-26) Glucose 155 H (70-99) mg/dL Calculated Osmolality 281 (280-300) Calcium 9.0 (8.6-10.8) mg/dL Troponin I 0.00 (0-0.03) ng/mL B-Natriuretic Peptide (0-100) pg/mL Attestation Statement - Attestation Attestation: Dr. Johnston note: Patient was seen in conjunction with the resident Dr. Palm. Please see his charting for complete documentation. I spent [id number] time with the patient and agree with patient's treatment and disposition. Vague chest pain at the same time of syncope at home just prior to arrival without any significant prodromal symptoms in the minutes hours and couple days leading up to the event. She has had recent stress testing. No symptoms at the time of admission
[2017-07-30] MEDS ORDERED: Acetaminophen 325 MG TABLET PO PRN (05:38)
[2017-07-30] MEDS ORDERED: Naloxone 0.4 MG/ML INJ IVP PRN (05:38)
[2017-07-30] MEDS ORDERED: clonazePAM 1 MG TABLET PO PRN (05:43)
--- NOTE | 2017-07-30 05:54 | Internal Med History&Physical ---
Date of Encounter: 07/30/17 Time of Encounter: 05:47 Assessment and Plan (1) Syncope and collapse Current visit: Yes Status: Acute 1. Will cycle troponins, glucose checks, and monitor on telemetry. 2. Recent ECHO performed and reviewed. 3. Will order Carotid Dopplers. 4. Hold Lisinopril and monitor BP. (2) Chest pain Current visit: Yes Status: Acute 1. Will order D-Dimer and, if elevated, she will need CTA chest to rule out PE. 2. Will consult Cardiology given recurrent chest pain and negative stress test recently. Qualifiers: Chest pain type: unspecified Qualified Code(s): R07.9 - Chest pain, unspecified (3) Lung nodules Current visit: Yes Status: Chronic 1. Patient will need outpatient pulmonary follow up. 2. Given smoking history and history of melanoma of her face, she will need pulmonary follow up, imaging, and possibly bronchoscopy to rule out malignancy. (4) DVT prophylaxis Current visit: No Status: Acute 1. Heparin SQ. Internal Medicine - H&P: HPI Chief complaint: chest pain; syncope Admitted From: Emergency Dept Plans for Post Hospital Care: Home History of present illness: Ms. Gottlieb is a 67 year old female who presents to the ER with complaints of chest pain followed by syncope early this morning. She woke up for a drink of water early this morning. She noted substernal chest pain, pressure, and dyspnea. She became lightheaded and dizzy and shortly thereafter passed out. She does not know how long she was "out", but she woke up on the floor. She then came to the ER. Work-up in ER was negative. She had recent stress test this month which was negative. She mentioned she had some lung nodules on recent CT chest. She also reports she had a history of melanoma to her face and worries that her lung nodules may be related to her melanoma. She has no yet had work-up. Past Med Surg Social Fam HX - Past Medical History Attestation: Yes The following information was validated with the patient. Source: patient, old records reviewed Medical history: hyperlipidemia, hypertension, myocardial infarction, other Psychiatric history: anxiety - Past Surgical History Surgical History: appendectomy, cholecystectomy, hysterectomy, other - Social History Smoking Status: Current every day smoker Smokeless Tobacco Status: No Alcohol use: none Drug use: none Current living situation: Home - Independent Activity Level: Independent ambulation - Family History Mother Family Member Ethnicity: Non- Living Status: Hx Family Cardiac Disorders: Yes (CAD,HTN) Brother Family Member Ethnicity: Non- Living Status: Still Living Hx Family Cancer: Yes (melonoma) Sister Family Member Ethnicity: Non- Living Status: Still Living Hx Family Cancer: Yes (Bone) Father Adopted: No Family Member Ethnicity: Non- Living Status: Hx Family Cardiac Disorders: Yes Hx Family Respiratory Disorders: Yes Hx Family Cancer: No Hx Family GI Disorders: No Hx Family Endocrine Disorder: No Hx Family Neuromuscular Disorders: No Hx Family Neurologic Disorders: No Hx Family HEENT Disorders: No Hx Family Autoimmune Disorders: No Internal Medicine - H&P: Meds Aspirin 81 mg PO DAILY 04/07/15 [History] Cetirizine HCl [Zyrtec] 10 mg PO DAILY 04/07/15 [History] Lansoprazole [Prevacid] 30 mg PO DAILY #0 04/07/15 [History] clonazePAM [Klonopin] 1 mg PO BID #0 04/07/15 [History] Albuterol Sulfate [Ventolin Hfa] 2 puff IH Q4H PRN 07/06/17 [History] Metoprolol XL (24 HR) Succ [Toprol Xl] 25 mg PO DAILY 07/06/17 [History] Venlafaxine XR (24 HR) [Effexor Xr] 150 mg PO DAILY 07/06/17 [History] Acetaminophen [Tylenol] 650 mg PO Q6HR PRN tablet 07/08/17 [Rx] Atorvastatin [Lipitor] 10 mg PO HS #30 tablet 07/08/17 [Rx] Lisinopril [Zestril] 20 mg PO BID #60 tablet 07/08/17 [Rx] 3 Allergy/AdvReac Type Severity Reaction Status Date / Time clarithromycin [From Biaxin] Allergy Anaphylaxis Verified 12/02/15 16:04 codeine AdvReac Vomiting Verified 04/22/15 23:15 morphine AdvReac Anaphylaxis Verified 04/22/15 23:16 - Constitutional Constitutional: no chills, no fever(s), no night sweats - EENT Eyes: no blurry vision, no change in vision Ears: no tinnitus Nose, mouth and throat: no nasal congestion, no sinus pressure, no sore throat - Cardiovascular Cardiovascular ROS IM: chest pain, diaphoresis, dyspnea, syncope, no edema, no irregular heart rhythm, no palpitations - Respiratory Respiratory: no cough, no hemoptysis, no chest congestion - Gastrointestinal Gastrointestinal: no abdominal pain, no diarrhea, no hematemesis, no hematochezia, no melena, no vomiting - Genitourinary Genitourinary: no dysuria, no flank pain, no hematuria - Musculoskeletal Musculoskeletal ROS IM: no arthralgias, no back pain - Integumentary Integumentary IM: no rash, no jaundice - Neurological Neurological ROS: no disequilibrium, no dizziness, no focal weakness, no frequent falls, no headache(s), no tremor(s), no weakness - Psychiatric Psychiatric: anxiety, depression - Endocrine Endocrine IM: no polydipsia, no polyuria - Allergic/Immunologic Allergic/Immunologic: no wheezing, no GI upset with certain foods - Constitutional Vitals: Temp Pulse Resp BP Pulse Ox 97.7 F 82 16 108/57 97 07/30/17 03:25 07/30/17 05:26 07/30/17 05:26 07/30/17 05:26 07/30/17 05:26 General appearance: Present: A&O X 3, no acute distress - Head Head exam: Present: atraumatic, normal inspection - Eye Eye exam: Present: EOMI, normal appearance, PERRL. Absent: scleral icterus Pupils: Present: normal accommodation - ENT ENT exam: Present: mucous membranes dry, normal exam - Neck Neck exam general surgery: Present: full ROM, normal inspection, supple. Absent : tenderness - Respiratory Respiratory exam: Present: wheezes (rare). Absent: accessory muscle use, chest wall tenderness, rales, respiratory distress, rhonchi - Cardiovascular Cardiovascular exam: Present: RRR, +S1, +S2. Absent: diastolic murmur, systolic murmur - GI/Abdominal GI/Abdominal exam: Present: normal bowel sounds, soft. Absent: hepatomegaly, mass, rebound, splenomegaly - Extremities Exam Extremities exam: Present: full ROM, warm. Absent: pedal edema, tenderness - Back Exam Back exam: Absent: CVA tenderness (L), CVA tenderness (R) - Neurological Exam Neurological exam: Present: alert, CN II-XII intact, oriented X3, no focal deficits, strengths equal and symetr throughout - Psychiatric Psychiatric exam: Present: normal affect, normal mood - Skin Skin exam: Present: dry, warm. Absent: rash Internal Med - H&P Results - Labs CBC & Chem 7: 07/30/17 03:37 07/30/17 03:37 Labs: Short CBC 07/30/17 Range/Units 03:37 WBC 14.9 H (4.3-11.1) K/mcL Hgb 13.4 (11.5-15.4) g/dL Hct 39.1 (35.3-44.9) % Plt Count 209 (140-400) K/mcL Neutrophils # 11.5 H (1.6-8.9) K/mcL BMP 07/30/17 03:37 Sodium 133 L Potassium 3.9 Chloride 94 L Carbon Dioxide 27 BUN 17 Creatinine 1.12 H Glucose 155 H Calcium 9.0 Cardiac Enzymes 07/30/17 Range/Units 03:37 Troponin I 0.00 (0-0.03) ng/mL - EKG Data -: EKG Interpreted by Myself - EKG Data Prior EKG available for review: no EKG comments: 07/30/17 05:59 Sinus rhythm - Impressions ITS Impressions Chest X-Ray 07/30/17 03:36 IMPRESSION: No radiographic evidence of acute cardiopulmonary disease. D/ / Erik Armas / Erik Armas Interpreting Provider: Erik Armas - Diagnostic Studies Chest x-ray Status: image reviewed by me (negative)
[2017-07-30] MEDS: *HR* Heparin 5,000 UNIT/ML VIAL SQ SCH ×2 (08:59→21:56)
[2017-07-30] MEDS: Aspirin 81 MG TAB.CHEW PO SCH (08:59)
[2017-07-30] MEDS: Metoprolol XL (24 HR) Succ 25 MG TAB.ER.24H PO SCH (08:59)
[2017-07-30] MEDS: Loratadine 10 MG TABLET PO SCH (08:59)
[2017-07-30] MEDS: 0.9 % Sodium Chloride 1,000 ML IVC SCH ×2 (09:16→23:59)
--- NOTE | 2017-07-30 13:30 | Event Note ---
Date of Encounter: 07/30/17 Time of Encounter: 13:30 67 year old female with h/o- HTN, lung nodules, was admitted with syncope early this morning; she reports having multiple similar episodes where she has chest pain, paresthesias, and diaphoresis and dizziness and collapses for a few seconds. Patient seen and examined; currently asymptomatic, tolerates oral diet; Chest- S1, S2 heard, lungs clear to auscultation B/L Labs reviewed- elevated D-dimer; Syncope- seems likely vasovagal; to r/o PE, arrhythmias, may need Holter monitoring; f/up Cardiology consult. Check V/Q scan, although low index of suspicion for PE; Patient needs a new PCP as she stopped following with her previous PCP due to a misunderstanding;
--- NOTE | 2017-07-30 14:27 | Cardiology Consult Note ---
<Junior Boyd - Last Filed: 07/30/17 17:30> Date of Encounter: 07/30/17 Time of Encounter: 11:00 Assessment and Plan (1) Syncope and collapse Current Visit: Yes Status: Acute Reported history of recurrent lightheadedness/dizziness/blurred vision on standing or shortly thereafter with chest discomfort. Left arm pain worsens with abduction, no current chest pain or left arm numbness. Patient telemetry shows sinus rhythm. Initial troponin negative. Last visit early June shows normal ECG, echo, pharmacologic stress test. No focal deficits present, no focal deficit history. Positive D-dimer, primary team investigating, performing NM V/Q. No shortness of breath, no tachycardia, normotensive, low likelihood PE. Plan: In absence of positive findings, symptoms point away from cardiogenic cause, possibly vasovagal syncope or orthostatic intolerance. Changes in vagal tone, the course of the vagal nerves themselves, can explain/illicit the chest symptoms, syncope, dizziness/blurred vision/sweating. Recommend patient continue to hydrate but include food/salt/electrolytes, to stand/sit up slower and place head between legs if/when prodromal symptoms occur again. As mentioned in physical exam, questionable provocation of dizziness with L rotation of head. Consider ENT referral with PCP outpatient. Cardiology will follow-up outpatient if patient desires. (2) Chest pain Current Visit: Yes Status: Acute No complaints of chest pain currently. Negative troponin. NSR on ECG. As planned above, likely vasovagal, can be revisited outpatient if symptoms persist. Qualifiers: Chest pain type: unspecified Qualified Code(s): R07.9 - Chest pain, unspecified (3) HLD (hyperlipidemia) Current Visit: No Status: Chronic Continue statin Qualifiers: Hyperlipidemia type: pure hypercholesterolemia Qualified Code(s): E78.00 - Pure hypercholesterolemia, unspecified; E78.0 - Pure hypercholesterolemia (4) HTN (hypertension) Current Visit: No Status: Chronic Continue Toprol Qualifiers: Hypertension type: essential hypertension Qualified Code(s): I10 - Essential (primary) hypertension Discussion w patient/family: The assessment and plan as outlined above was discussed with the patient and/or family members who expressed understanding and agreement. All questions were answered. Thank you for involving us in the care of your patient. Please call with any questions. History of Present Illness Consult date: 07/30/17 Requesting physician: Brian Alvarez Consult reason: Recurrent chest discomfort/syncope in setting of recentnegative stress test Chief complaint: Fall/Syncope History of present illness: Netta Gottlieb, is a 67 y/o female, PMH bilateral CEA 2011, current smoker 1ppd lifelong, no hx AL, presented to ED yesterday by squad after fall. Pt reports getting up to go over to the sink for water, feeling dizzy within a minute, falling, then waking up on the floor. Patient lives by herself at home. Reports blurred vision, chest discomfort, dizziness, sweating. Her arm is mildly painful when she moves it. Patient was recently here early June for similar episode, with cardiac workup, ecg, nuclear stress test, echo, negative for ischemia/structural abnormalities. Cardiology consulted today for evaluation of recurrent chest discomfort/syncope in setting of recent negative workup. Past Med Surg Social Fam HX - Past Medical History Medical history: hyperlipidemia, hypertension, myocardial infarction, other Psychiatric history: anxiety - Past Surgical History Surgical History: appendectomy, cholecystectomy, hysterectomy, other - Social History Smoking Status: Current every day smoker Smokeless Tobacco Status: No Alcohol use: none Drug use: none - Family History Mother Family Member Ethnicity: Non- Living Status: Hx Family Cardiac Disorders: Yes (CAD,HTN) Brother Family Member Ethnicity: Non- Living Status: Still Living Hx Family Cancer: Yes (melonoma) Sister Family Member Ethnicity: Non- Living Status: Still Living Hx Family Cancer: Yes (Bone) Father Adopted: No Family Member Ethnicity: Non- Living Status: Hx Family Cardiac Disorders: Yes Hx Family Respiratory Disorders: Yes Hx Family Cancer: No Hx Family GI Disorders: No Hx Family Endocrine Disorder: No Hx Family Neuromuscular Disorders: No Hx Family Neurologic Disorders: No Hx Family HEENT Disorders: No Hx Family Autoimmune Disorders: No Medications and Allergies Aspirin 81 mg PO DAILY 04/07/15 [History] Cetirizine HCl [Zyrtec] 10 mg PO DAILY 04/07/15 [History] Lansoprazole [Prevacid] 30 mg PO DAILY #0 04/07/15 [History] clonazePAM [Klonopin] 1 mg PO BID #0 04/07/15 [History] Albuterol Sulfate [Ventolin Hfa] 2 puff IH Q4H PRN 07/06/17 [History] Metoprolol XL (24 HR) Succ [Toprol Xl] 25 mg PO DAILY 07/06/17 [History] Venlafaxine XR (24 HR) [Effexor Xr] 150 mg PO DAILY 07/06/17 [History] Acetaminophen [Tylenol] 650 mg PO Q6HR PRN tablet 07/08/17 [Rx] Atorvastatin [Lipitor] 10 mg PO HS #30 tablet 07/08/17 [Rx] Lisinopril [Zestril] 20 mg PO BID #60 tablet 07/08/17 [Rx] 3 Allergy/AdvReac Type Severity Reaction Status Date / Time clarithromycin [From Biaxin] Allergy Anaphylaxis Verified 12/02/15 16:04 morphine Allergy Anaphylaxis Verified 07/30/17 08:09 codeine AdvReac Vomiting Verified 04/22/15 23:15 All Systems Review: A 10-system review of systems was performed and is negative for pertinent findings except as documented above in the HPI. Physical Examination Vital Signs, Last 4 Hours Temp Pulse Resp BP Pulse Ox 07/30/17 11:23 98.2 F 64 16 119/75 94 General: Conversant HEENT: Atraumatic, Other (No nystagmus; pt reports some dizziness when turning her head to the left.) Neck: No JVD Cardiac: Reg Rate and Rhythm, Normal S1 and S2 Lungs: No Wheeze, Rales, Rhonchi Neuro: No focal deficits noted Extremities: No Clubbing, No Cyanosis, No Edema Results 07/30/17 03:37 07/30/17 03:37 Lab Results 07/30/17 11:35 Troponin I 0.00 Consult Discharge Plan - Plan Referrals: NONE,PCP [Primary Care Provider] - <Uriel Echeverria - Last Filed: 07/30/17 17:37> Date of Encounter: 07/30/17 - Attending Attestation I examined this patient and my medical decision-making was reviewed with the Resident Physician. I agree with the documented findings, disposition and treatment plan as described except to the extent set forth below. Episodes consistent with vasovagal syncope. Suggest increased salt and fluid, can follow up as outpt. Assessment and Plan Discussion w patient/family: The assessment and plan as outlined above was discussed with the patient and/or family members who expressed understanding and agreement. All questions were answered. Thank you for involving us in the care of your patient. Please call with any questions. History of Present Illness History of present illness: Ms. Gottlieb is a 67 year old female All Systems Review: A 10-system review of systems was performed and is negative for pertinent findings except as documented above in the HPI. Results 07/30/17 03:37 07/30/17 03:37 Lab Results 07/30/17 11:35 Troponin I 0.00
--- NOTE | 2017-07-30 17:41 | Electrocardiograph Report ---
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
[2017-07-31 04:59] LABS: Basophils % 0.3 %; Eosinophils # 0.4 K/mcL (0.0-0.6); Hematocrit 37.2 % (35.3-44.9); Hemoglobin 12.5 g/dL (11.5-15.4); Immature Granulocytes % 0.4 % (0-4); Lymphocytes # 3.3 K/mcL (0.6-4.6); Lymphocytes % 36.6 %; Mean Corpuscular HGB Conc 33.6 g/dL (31.6-35.5); Mean Corpuscular Hemoglobin 27.8 pg (28.0-33.3); Mean Corpuscular Volume 82.9 fL (83.0-100.0); Mean Platelet Volume 10.2 fL (9.4-12.4); Monocytes # 0.6 K/mcL (0.0-1.3); Monocytes % 6.6 %; Neutrophils # 4.7 K/mcL (1.6-8.9); Platelet Count 185 K/mcL (140-400); Red Blood Count 4.49 M/mcL (3.82-4.97); Red Cell Distribution Width 12.8 % (11.5-14.5); Segmented Neutrophils % 52.1 %
[2017-07-31 05:06] LABS: Alanine Aminotransferase 21 Units/L (0-55); Albumin 3.1 g/dL (3.5-5.0); Albumin/Globulin Ratio 0.9 (1.1-2.2); Alkaline Phosphatase 133 Units/L (38-126); Aspartate Amino Transferase 18 Units/L (5-34); BUN/Creatinine Ratio 15 (6-26); Bilirubin,Total 0.4 mg/dL (0.2-1.2); Blood Urea Nitrogen 16 mg/dL (7-20); Calcium 8.7 mg/dL (8.6-10.8); Carbon Dioxide 24 mEq/L (19-29); Chloride 103 mEq/L (98-109); Chol/HDL Ratio 4.1 (0-4.9); Cholesterol 149 mg/dL (< 200); Globulin 3.4 g/dL (2.4-3.5); Glucose 135 mg/dL (70-99); HDL Cholesterol 36 mg/dL (40-59); LDL Cholesterol,Calculated 73 mg/dL (0-99); Magnesium 1.3 mg/dL (1.6-2.6); Osmolality,Calculated 287 (280-300); Potassium 3.6 mEq/L (3.5-4.5); Sodium 137 mEq/L (136-145); Total Protein 6.5 g/dL (6.0-8.3); Triglycerides 198 mg/dL (< 150); eGFR For African Americans > 60 (> 60); eGFR For Non-African Americans 51 (> 60)
[2017-07-31] MEDS: Metoprolol XL (24 HR) Succ 25 MG TAB.ER.24H PO SCH (07:45)
[2017-07-31] MEDS: *HR* Heparin 5,000 UNIT/ML VIAL SQ SCH (07:45)
[2017-07-31] MEDS: Loratadine 10 MG TABLET PO SCH (07:45)
[2017-07-31] MEDS: Aspirin 81 MG TAB.CHEW PO SCH (07:45)
[2017-07-31 10:36] VITALS: BP 144/80
--- NOTE | 2017-07-31 12:55 | Internal Med Progress Note ---
Date of Encounter: 07/31/17 Time of Encounter: 12:52 - Assessment and plan (1) Hypertension Current Visit: No Status: Chronic Assessment and plan: well controlled Qualifiers: Hypertension type: essential hypertension Qualified Code(s): I10 - Essential (primary) hypertension (2) Chest pain Current Visit: Yes Status: Acute Assessment and plan: Assessment resolving patient has been some back cardiology see report for details Qualifiers: Chest pain type: unspecified Qualified Code(s): R07.9 - Chest pain, unspecified (3) HTN (hypertension) Current Visit: No Status: Chronic Assessment and plan: Well-controlled Qualifiers: Hypertension type: essential hypertension Qualified Code(s): I10 - Essential (primary) hypertension (4) HLD (hyperlipidemia) Current Visit: No Status: Chronic Assessment and plan: Chronic Qualifiers: Hyperlipidemia type: pure hypercholesterolemia Qualified Code(s): E78.00 - Pure hypercholesterolemia, unspecified; E78.0 - Pure hypercholesterolemia (5) 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 VQ scan showed low probability and seen by cardiology please see evaluation for detail from a cardiology standpoint can be be discharged for outpatient follow-up. on seing patient she complained of left shoulder pain and requesting x-ray to find what is wrong with her left shoulder . says shoulder hurts from recurrent fall - Constitutional Vitals: Temp Pulse Resp BP Pulse Ox 98 F 87 16 144/80 98 07/31/17 10:35 07/31/17 10:35 07/31/17 10:35 07/31/17 10:35 07/31/17 10:35 General appearance: Present: A&O X 3, no acute distress - Eye Eye exam: Present: PERRL, conjuntiva pink, sclera anicteric Pupils: Present: PERRL - Respiratory Respiratory exam: Present: CTAB. Absent: accessory muscle use, rales, rhonchi, wheezes - Cardiovascular Cardiovascular exam: Present: RRR, +S1, +S2. Absent: diastolic murmur, gallop, rubs, systolic murmur - GI/Abdominal GI/Abdominal exam: Present: normal bowel sounds, soft, no peritoneal signs. Absent: distended, tenderness - Extremities Exam Extremities exam: Present: tenderness Internal Medicine: Result - Labs CBC & Chem 7: 07/31/17 04:29 07/31/17 04:29 Labs: Short CBC 07/31/17 Range/Units 04:29 WBC 9.0 (4.3-11.1) K/mcL Hgb 12.5 (11.5-15.4) g/dL Hct 37.2 (35.3-44.9) % Plt Count 185 (140-400) K/mcL Neutrophils # 4.7 (1.6-8.9) K/mcL BMP 07/31/17 04:29 Sodium 137 Potassium 3.6 Chloride 103 Carbon Dioxide 24 BUN 16 Creatinine 1.07 Glucose 135 H Calcium 8.7 Cardiac Enzymes 07/30/17 Range/Units 17:28 Troponin I 0.01 (0-0.03) ng/mL Liver Function 07/31/17 Range/Units 04:29 Total Bilirubin 0.4 (0.2-1.2) mg/dL AST 18 (5-34) Units/L ALT 21 (0-55) Units/L Alkaline Phosphatase 133 H (38-126) Units/L Albumin 3.1 L (3.5-5.0) g/dL - ABG Interpretation ABG results: PT/INR, D-dimer PT 10.2 Seconds (9.4-12.1) 07/30/17 03:37 D-Dimer 1767 ng/mLFEU (0-500) H 07/30/17 03:37 - Impressions Impressions Pulmonary Perfusion Imaging 07/30/17 12:54 IMPRESSION: Low probability for pulmonary embolus. COPD. D/ / Meliton Kirby MD / Meliton Kirby MD Interpreting Provider: Meliton Kirby MD Consult Discharge Plan - Plan Referrals: NONE,PCP [Primary Care Provider] -
--- NOTE | 2017-07-31 13:02 | Discharge Summary ---
Date of Encounter: 07/31/17 Time of Encounter: 13:00 - Discharge Diagnosis (1) Hypertension Priority: Secondary Status: Chronic Qualifiers: Hypertension type: essential hypertension Qualified Code(s): I10 - Essential (primary) hypertension (2) Chest pain Priority: Secondary Status: Acute Qualifiers: Chest pain type: unspecified Qualified Code(s): R07.9 - Chest pain, unspecified (3) HTN (hypertension) Priority: Secondary Status: Chronic Qualifiers: Hypertension type: essential hypertension Qualified Code(s): I10 - Essential (primary) hypertension (4) HLD (hyperlipidemia) Priority: Secondary Status: Chronic Qualifiers: Hyperlipidemia type: pure hypercholesterolemia Qualified Code(s): E78.00 - Pure hypercholesterolemia, unspecified; E78.0 - Pure hypercholesterolemia (5) 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 Priority: Secondary Status: Acute (6) Syncope and collapse Priority: Primary Status: Acute (7) Lung nodules Priority: Secondary Status: Chronic - Discharge Medications Home Medications: Aspirin 81 mg PO DAILY 04/07/15 [History] Cetirizine HCl [Zyrtec] 10 mg PO DAILY 04/07/15 [History] Lansoprazole [Prevacid] 30 mg PO DAILY #0 04/07/15 [History] clonazePAM [Klonopin] 1 mg PO BID #0 04/07/15 [History] Albuterol Sulfate [Ventolin Hfa] 2 puff IH Q4H PRN 07/06/17 [History] Metoprolol XL (24 HR) Succ [Toprol Xl] 25 mg PO DAILY 07/06/17 [History] Venlafaxine XR (24 HR) [Effexor Xr] 150 mg PO DAILY 07/06/17 [History] Acetaminophen [Tylenol] 650 mg PO Q6HR PRN tablet 07/08/17 [Rx] Atorvastatin [Lipitor] 10 mg PO HS #30 tablet 07/08/17 [Rx] Lisinopril [Zestril] 20 mg PO BID #60 tablet 07/08/17 [Rx] Allergies/Adverse Reactions: 3 Allergy/AdvReac Type Severity Reaction Status Date / Time clarithromycin [From Biaxin] Allergy Anaphylaxis Verified 12/02/15 16:04 morphine Allergy Anaphylaxis Verified 07/30/17 08:09 codeine AdvReac Vomiting Verified 04/22/15 23:15 Procedures/tests Complete & Pending: Procedures Performed prior 72 hours Category Date Time Status NM pul vent and perfuse [NM] Routine Exams 07/30/17 12:54 Completed Date of admission: 07/30/17 05:53 Primary care physician: PCP NONE Discharging clinician: Tonia Hung Anticipated date of discharge: 07/31/17 - Patient Status Disposition: Home, Self-Care Overall status at discharge: patient is back to baseline - Discharge Instructions - Diet and Activity Activity: other Diet: regular diet Hospital course: Ms. Gottlieb is a 67 year old female - Time Spent with Patient Total time spent providing and/or coordinating discharge services: - Constitutional Vitals: Temp Pulse Resp BP Pulse Ox 98 F 87 16 144/80 98 07/31/17 10:35 07/31/17 10:35 07/31/17 10:35 07/31/17 10:35 07/31/17 10:35 General appearance: Present: A&O X 3, no acute distress
== END 2017-07-31 15:03 | disposition home or self-care (01) ==
LOC: EMEROO 03:24 → 3BNU 03:24 → SUATTDRO 05:53 → 3BNU 06:07
PROVIDERS: ADMIT Pediatrics; ATTEND Internal Medicine

== ENCOUNTER 2018-01-01 21:58 | Observation (INO) ==
[2018-01-01] MEDS ORDERED: 0.9 % Sodium Chloride 1,000 ML ONE (23:42)
[2018-01-01] MEDS: 0.9 % Sodium Chloride 1,000 ML IVC SCH (23:42)
[2018-01-01 23:49] LABS: Basophils % 0.3 %; Eosinophils # 0.3 K/mcL (0.0-0.6); Eosinophils % 1.7 %; Hematocrit 44.2 % (35.3-44.9); Hemoglobin 14.7 g/dL (11.5-15.4); Immature Granulocytes % 1.9 % (0-4); Lymphocytes # 3.2 K/mcL (0.6-4.6); Lymphocytes % 20.5 %; Mean Corpuscular HGB Conc 33.3 g/dL (31.6-35.5); Mean Corpuscular Hemoglobin 27.5 pg (28.0-33.3); Mean Corpuscular Volume 82.8 fL (83.0-100.0); Mean Platelet Volume 10.3 fL (9.4-12.4); Monocytes # 1.3 K/mcL (0.0-1.3); Neutrophils # 10.5 K/mcL (1.6-8.9); Platelet Count 335 K/mcL (140-400); Red Blood Count 5.34 M/mcL (3.82-4.97); Red Cell Distribution Width 13.8 % (11.5-14.5); Segmented Neutrophils % 67.6 %
[2018-01-01 23:55] LABS: INR 0.9; Prothrombin Time 9.7 Seconds (9.4-12.1)
[2018-01-02] LABS: Alanine Aminotransferase 11 Units/L (7-52); Albumin 4.7 g/dL (3.5-5.7); Albumin/Globulin Ratio 1.8 (1.1-2.2); Alkaline Phosphatase 130 Units/L (34-104); Aspartate Amino Transferase 13 Units/L (13-39); BUN/Creatinine Ratio 23 (6-26); Bilirubin,Total 0.4 mg/dL (0.3-1.0); Blood Urea Nitrogen 22 mg/dL (8-23); Calcium 9.9 mg/dL (8.6-10.3); Carbon Dioxide 28 mEq/L (23-29); Chloride 96 mEq/L (98-107); Globulin 2.6 g/dL (2.4-3.5); Glucose 211 mg/dL (70-105); Osmolality,Calculated 288 (280-300); Potassium 3.4 mEq/L (3.5-5.1); Sodium 134 mEq/L (136-145); Total Protein 7.3 g/dL (6.4-8.9); eGFR For African Americans > 60 (> 60); eGFR For Non-African Americans 57 (> 60)
[2018-01-02 00:01] LABS: Troponin I < 0.03 ng/mL (< 0.04)
[2018-01-02 00:28] LABS: Bilirubin,Urine Negative (Negative); Blood,Urine Trace (Negative); Clarity,Urine Clear (Clear); Color,Urine Yellow (Yellow); Glucose,Urine (UA) Normal (Normal); Ketones,Urine Negative (Negative); Leukocyte Esterase,Urine Small (Negative); Nitrite,Urine Negative (Negative); Protein,Urine Trace mg/dL (Neg-Trace); Specific Gravity,Urine 1.024 (1.010-1.025); Urobilinogen,Urine Normal (Normal)
[2018-01-02 00:30] LABS: Bacteria,Urine None Seen per hpf (None-Few); Hyaline Casts,Urine None Seen per lpf (None-Few); Squamous Epithelial Cell,Urine Many per lpf (None-Few)
--- NOTE | 2018-01-02 01:08 | Emergency Department Note ---
Disposition Clinical Impression: Syncope, Syncope and collapse HTN (hypertension) Qualifiers: Hypertension type: essential hypertension Qualified Code(s): I10 - Essential ( primary) hypertension Disposition: Admitted As Inpatient Condition: Fair Dizziness HPI - General Chief Complaint: ED Dizziness Time Seen by Provider: 01/01/18 22:58 Source: patient, EMS Limitations: no limitations Nursing Notes Reviewed: Yes Vital Signs Reviewed: Yes - History of Present Illness HPI Narrative: Netta is a pleasant 67-year-old female. She presents the emergency room with a chief complaint of 3 months of dizziness gradually worsening as well as 2 episodes of syncope today. The time of the syncopal episode she was having a bowel movement. She denies falls or hits to the head at this syncopal episodes. She states that she has noticed her heart skipping a beat recently. She notes that she is currently getting worked up for cancer and has nodules on her heart and lungs. She states that she is pleasant and outpatient management next week for this. She notes decreased water intake today (01/01). She lives by herself. Her past medical history includes an [place]. She does not have any stents. Pt Subjective Complaint: dizziness Onset (ago): month(s) Timing: gradual onset Description: lightheadedness History of similar episodes: No History of trauma: No Improves with: remaining still Worsens with: movement Associated symptoms: Reports: denies other symptoms - Related Data Home Medications Medication Instructions Recorded Confirmed Aspirin 81 mg PO DAILY 04/07/15 01/02/18 Cetirizine HCl [Zyrtec] 10 mg PO DAILY 04/07/15 01/02/18 Lansoprazole [Prevacid] 30 mg PO DAILY #0 04/07/15 01/02/18 clonazePAM [Klonopin] 1 mg PO BID #0 04/07/15 01/02/18 Albuterol Sulfate [Ventolin Hfa] 2 puff IH Q4H PRN 07/06/17 01/02/18 Metoprolol XL (24 HR) Succ [Toprol 25 mg PO DAILY 07/06/17 01/02/18 Xl] Venlafaxine XR (24 HR) [Effexor Xr] 150 mg PO DAILY 07/06/17 01/02/18 Previous Rx's Medication Instructions Recorded Acetaminophen [Tylenol] 650 mg PO Q6HR PRN tablet 07/08/17 Atorvastatin [Lipitor] 10 mg PO HS #30 tablet 07/08/17 Lisinopril [Zestril] 20 mg PO BID #60 tablet 07/08/17 HYDROcodone/Acet 5/325 mg [[place] 1 tab PO Q6H PRN #12 tab 08/27/17 5-325 mg] Naproxen [Naprosyn] 500 mg PO BID PRN #20 tablet 09/02/17 levoFLOXacin [Levaquin] 750 mg PO DAILY #10 tablet 11/02/17 predniSONE [Prednisone] 50 mg PO DAILY #5 tablet 11/02/17 Allergies Allergy/AdvReac Type Severity Reaction Status Date / Time clarithromycin [From Biaxin] Allergy Anaphylaxis Verified 11/02/17 10:02 morphine Allergy Anaphylaxis Verified 11/02/17 10:02 codeine AdvReac Vomiting Verified 11/02/17 10:02 All systems ED: reviewed and negative except as stated. Review of Systems: As Per HPI Past Medical History - Past Medical History Medical history: Reports: hyperlipidemia, hypertension, myocardial infarction, other Surgical history: Reports: appendectomy, cholecystectomy, hysterectomy, other Psychiatric history: Reports: anxiety [employer] history: Reports: no [employer] history - Social History Smoking Status: Current every day smoker Smokeless Tobacco Status: No Alcohol use: Reports: none Drug use: Reports: none Physical Exam elevated BP noted - General Limitations: no limitations General appearance: alert, in no apparent distress - Head Head exam: atraumatic - Eye Eye exam: Present: PERRL - Chest Chest inspection: Present: tenderness. Absent: rash (lateral left side, no crepitus or localization to pain) - Respiratory Respiratory exam: Present: normal lung sounds bilaterally - Cardiovascular Cardiovascular exam: Present: regular rate - Abdominal Exam Abdominal exam: Present: soft Course Course Narrative: Patient did well in the emergency room. Discussed admission with hospitalist who requested a CT head noncontrast prior to admission before. Upon review of CT head patient was admitted to the floor as an. I requested admission for this patient due to unsafe discharge with new syncope x 2 that occurred today. Vital Signs Temperature 98.1 F 01/01/18 22:10 Pulse Rate 77 01/01/18 22:10 Respiratory Rate 18 01/01/18 22:10 Blood Pressure 186/99 01/01/18 22:10 O2 Sat by Pulse Oximetry 96 01/01/18 22:10 Temperature 98.1 F 01/02/18 03:56 Pulse Rate 73 01/02/18 03:56 Respiratory Rate 14 01/02/18 03:56 Blood Pressure 175/82 01/02/18 03:56 O2 Sat by Pulse Oximetry 96 01/02/18 03:56 Oxygen Delivery Oxygen Delivery Room Air Dizziness - Medical Records Medical records reviewed: Yes I reviewed the patient's medical records. - Lab Data Result diagrams: 01/02/18 03:38 01/02/18 03:38 Lab Results 01/01/18 01/01/18 01/01/18 Range/Units 22:11 22:11 22:11 WBC 15.5 H (4.3-11.1) K/mcL RBC 5.34 H (3.82-4.97) M/mcL Hgb 14.7 (11.5-15.4) g/dL Hct 44.2 (35.3-44.9) % MCV 82.8 L (83.0-100.0) fL MCH 27.5 L (28.0-33.3) pg MCHC 33.3 (31.6-35.5) g/dL RDW 13.8 (11.5-14.5) % Plt Count 335 (140-400) K/mcL MPV 10.3 (9.4-12.4) fL Immature Gran % 1.9 (0-4) % Seg Neutrophils % 67.6 % Lymphocytes % 20.5 % Monocytes % 8.0 % Eosinophils % 1.7 % Basophils % 0.3 % Neutrophils # 10.5 H (1.6-8.9) K/mcL Lymphocytes # 3.2 (0.6-4.6) K/mcL Monocytes # 1.3 (0.0-1.3) K/mcL Eosinophils # 0.3 (0.0-0.6) K/mcL Basophils # 0.0 (0.0-0.2) K/mcL PT 9.7 (9.4-12.1) Seconds INR 0.9 Sodium 134 L (136-145) mEq/L Potassium 3.4 L (3.5-5.1) mEq/L Chloride 96 L (98-107) mEq/L Carbon Dioxide 28 (23-29) mEq/L BUN 22 (8-23) mg/dL Creatinine 0.97 (0.60-1.20) mg/dL Est GFR ( Amer) > 60 (> 60) Est GFR (Non-Af Amer) 57 L (> 60) BUN/Creatinine Ratio 23 (6-26) Glucose 211 H (70-105) mg/dL Calculated Osmolality 288 (280-300) Calcium 9.9 (8.6-10.3) mg/dL Total Bilirubin 0.4 (0.3-1.0) mg/dL AST 13 (13-39) Units/L ALT 11 (7-52) Units/L Alkaline Phosphatase 130 H (34-104) Units/L Troponin I < 0.03 (< 0.04) ng/mL Serum Total Protein 7.3 (6.4-8.9) g/dL Albumin 4.7 (3.5-5.7) g/dL Globulin 2.6 (2.4-3.5) g/dL Albumin/Globulin Ratio 1.8 (1.1-2.2) TSH 0.705 (0.340-5.600) mcIU/mL Urine Color (Yellow) Urine Clarity (Clear) Urine pH (5.0-8.0) pH Units Ur Specific [place] (1.010-1.025) Urine Protein (Neg-Trace) mg/dL Urine Glucose (UA) (Normal) mg/dL Urine Ketones (Negative) mg/dL Urine Blood (Negative) Urine Nitrite (Negative) Urine Bilirubin (Negative) Urine Urobilinogen (Normal) mg/dL Ur Leukocyte Esterase (Negative) Urine Microscopic RBC (0-3) per hpf Urine Microscopic WBC (0-3) per hpf Ur Squamous Epith Cells (None-Few) per lpf Urine Bacteria (None-Few) per hpf Hyaline Casts (None-Few) per lpf Ur Culture Indicated? (NO) 01/02/18 Range/Units 00:20 WBC (4.3-11.1) K/mcL RBC (3.82-4.97) M/mcL Hgb (11.5-15.4) g/dL Hct (35.3-44.9) % MCV (83.0-100.0) fL MCH (28.0-33.3) pg MCHC (31.6-35.5) g/dL RDW (11.5-14.5) % Plt Count (140-400) K/mcL MPV (9.4-12.4) fL Immature Gran % (0-4) % Seg Neutrophils % % Lymphocytes % % Monocytes % % Eosinophils % % Basophils % % Neutrophils # (1.6-8.9) K/mcL Lymphocytes # (0.6-4.6) K/mcL Monocytes # (0.0-1.3) K/mcL Eosinophils # (0.0-0.6) K/mcL Basophils # (0.0-0.2) K/mcL PT (9.4-12.1) Seconds INR Sodium (136-145) mEq/L Potassium (3.5-5.1) mEq/L Chloride (98-107) mEq/L Carbon Dioxide (23-29) mEq/L BUN (8-23) mg/dL Creatinine (0.60-1.20) mg/dL Est GFR ( Amer) (> 60) Est GFR (Non-Af Amer) (> 60) BUN/Creatinine Ratio (6-26) Glucose (70-105) mg/dL Calculated Osmolality (280-300) Calcium (8.6-10.3) mg/dL Total Bilirubin (0.3-1.0) mg/dL AST (13-39) Units/L ALT (7-52) Units/L Alkaline Phosphatase (34-104) Units/L Troponin I (< 0.04) ng/mL Serum Total Protein (6.4-8.9) g/dL Albumin (3.5-5.7) g/dL Globulin (2.4-3.5) g/dL Albumin/Globulin Ratio (1.1-2.2) TSH (0.340-5.600) mcIU/mL Urine Color Yellow (Yellow) Urine Clarity Clear (Clear) Urine pH 6.0 (5.0-8.0) pH Units Ur Specific [place] 1.024 (1.010-1.025) Urine Protein Trace (Neg-Trace) mg/dL Urine Glucose (UA) Normal (Normal) mg/dL Urine Ketones Negative (Negative) mg/dL Urine Blood Trace H (Negative) Urine Nitrite Negative (Negative) Urine Bilirubin Negative (Negative) Urine Urobilinogen Normal (Normal) mg/dL Ur Leukocyte Esterase Small H (Negative) Urine Microscopic RBC 3-5 H (0-3) per hpf Urine Microscopic WBC 5-15 H (0-3) per hpf Ur Squamous Epith Cells Many H (None-Few) per lpf Urine Bacteria None Seen (None-Few) per hpf Hyaline Casts None Seen (None-Few) per lpf Ur Culture Indicated? NO. A (NO) - EKG Data EKG attestation: Yes I reviewed and interpreted this EKG. EKG results narrative: Reviewed in conjunction w Dr. Dorsey Rhythm: NSR When compared to previous EKG there are: previous EKG unavailable Interpretation: normal EKG
--- NOTE | 2018-01-02 01:43 | Emergency Department Note ---
Disposition Clinical Impression: Syncope, HTN (hypertension), Syncope and collapse Disposition: Admitted As Inpatient Condition: Fair General Adult HPI - General Chief complaint: ED Dizziness Time Seen by Provider: 01/01/18 22:58 Source: patient, EMS Limitations: no limitations - History of Present Illness Pain Scale: 0 - Related Data Home Medications Medication Instructions Recorded Confirmed Aspirin 81 mg PO DAILY 04/07/15 01/02/18 Lansoprazole [Prevacid] 30 mg PO DAILY #0 04/07/15 01/02/18 clonazePAM [Klonopin] 1 mg PO BID #0 04/07/15 01/02/18 Albuterol Sulfate [Ventolin Hfa] 2 puff IH Q4H PRN 07/06/17 01/02/18 Metoprolol XL (24 HR) Succ [Toprol 25 mg PO DAILY 07/06/17 01/02/18 Xl] Venlafaxine XR (24 HR) [Effexor Xr] 150 mg PO DAILY 07/06/17 01/02/18 Albuterol Neb [Proventil Neb] 2.5 mg IH 3-4XD PRN 01/02/18 01/02/18 Glycopyrrolate/Formoterol Fum 2 puff IH BID 01/02/18 01/02/18 [Bevespi Aerosphere Inhaler] Hydrochlorothiazide [Microzide] 12.5 mg PO DAILY 01/02/18 01/02/18 Mirtazapine [Remeron] 15 mg PO HS 01/02/18 01/02/18 Sertraline [Zoloft] 50 mg PO DAILY 01/02/18 01/02/18 Sucralfate [Carafate] 1 gm PO BID 01/02/18 01/02/18 predniSONE [PredniSONE] See Taper PO AD 01/02/18 01/02/18 Previous Rx's Medication Instructions Recorded Acetaminophen [Tylenol] 650 mg PO Q6HR PRN tablet 07/08/17 Atorvastatin [Lipitor] 10 mg PO HS #30 tablet 07/08/17 Lisinopril [Zestril] 20 mg PO BID #60 tablet 07/08/17 HYDROcodone/Acet 5/325 mg [[place] 1 tab PO Q6H PRN #12 tab 08/27/17 5-325 mg] Naproxen [Naprosyn] 500 mg PO BID PRN #20 tablet 09/02/17 Allergies Allergy/AdvReac Type Severity Reaction Status Date / Time clarithromycin [From Biaxin] Allergy Anaphylaxis Verified 11/02/17 10:02 morphine Allergy Anaphylaxis Verified 11/02/17 10:02 codeine AdvReac Vomiting Verified 11/02/17 10:02 Past Medical History - Past Medical History Medical history: Reports: hyperlipidemia, hypertension, myocardial infarction, other Surgical history: Reports: appendectomy, cholecystectomy, hysterectomy, other Psychiatric history: Reports: anxiety RN NEONATAL history: Reports: no RN NEONATAL history - Social History Smoking Status: Current every day smoker Smokeless Tobacco Status: No Alcohol use: Reports: none Drug use: Reports: none Physical Exam - General Limitations: no limitations General appearance: alert, in no apparent distress Course Vital Signs Temperature 98.1 F 01/01/18 22:10 Pulse Rate 77 01/01/18 22:10 Respiratory Rate 18 01/01/18 22:10 Blood Pressure 186/99 01/01/18 22:10 O2 Sat by Pulse Oximetry 96 01/01/18 22:10 Temperature 98.1 F 01/03/18 02:40 Pulse Rate 76 01/03/18 02:40 Respiratory Rate 16 01/03/18 02:40 Blood Pressure 165/93 01/03/18 02:40 O2 Sat by Pulse Oximetry 94 01/03/18 02:40 Oxygen Delivery Oxygen Delivery Room Air Medical Decision Making - Lab Data Result diagrams: 01/02/18 03:38 01/02/18 03:38 Lab Results 01/01/18 01/01/18 01/01/18 Range/Units 22:11 22:11 22:11 WBC 15.5 H (4.3-11.1) K/mcL RBC 5.34 H (3.82-4.97) M/mcL Hgb 14.7 (11.5-15.4) g/dL Hct 44.2 (35.3-44.9) % MCV 82.8 L (83.0-100.0) fL MCH 27.5 L (28.0-33.3) pg MCHC 33.3 (31.6-35.5) g/dL RDW 13.8 (11.5-14.5) % Plt Count 335 (140-400) K/mcL MPV 10.3 (9.4-12.4) fL Immature Gran % 1.9 (0-4) % Seg Neutrophils % 67.6 % Lymphocytes % 20.5 % Monocytes % 8.0 % Eosinophils % 1.7 % Basophils % 0.3 % Neutrophils # 10.5 H (1.6-8.9) K/mcL Lymphocytes # 3.2 (0.6-4.6) K/mcL Monocytes # 1.3 (0.0-1.3) K/mcL Eosinophils # 0.3 (0.0-0.6) K/mcL Basophils # 0.0 (0.0-0.2) K/mcL PT 9.7 (9.4-12.1) Seconds INR 0.9 Sodium 134 L (136-145) mEq/L Potassium 3.4 L (3.5-5.1) mEq/L Chloride 96 L (98-107) mEq/L Carbon Dioxide 28 (23-29) mEq/L BUN 22 (8-23) mg/dL Creatinine 0.97 (0.60-1.20) mg/dL Est GFR ( Amer) > 60 (> 60) Est GFR (Non-Af Amer) 57 L (> 60) BUN/Creatinine Ratio 23 (6-26) Glucose 211 H (70-105) mg/dL POC Glucose (70-99) mg/dL Calculated Osmolality 288 (280-300) Calcium 9.9 (8.6-10.3) mg/dL Total Bilirubin 0.4 (0.3-1.0) mg/dL AST 13 (13-39) Units/L ALT 11 (7-52) Units/L Alkaline Phosphatase 130 H (34-104) Units/L Troponin I < 0.03 (< 0.04) ng/mL Serum Total Protein 7.3 (6.4-8.9) g/dL Albumin 4.7 (3.5-5.7) g/dL Globulin 2.6 (2.4-3.5) g/dL Albumin/Globulin Ratio 1.8 (1.1-2.2) TSH 0.705 (0.340-5.600) mcIU/mL Urine Color (Yellow) Urine Clarity (Clear) Urine pH (5.0-8.0) pH Units Ur Specific [place] (1.010-1.025) Urine Protein (Neg-Trace) mg/dL Urine Glucose (UA) (Normal) mg/dL Urine Ketones (Negative) mg/dL Urine Blood (Negative) Urine Nitrite (Negative) Urine Bilirubin (Negative) Urine Urobilinogen (Normal) mg/dL Ur Leukocyte Esterase (Negative) Urine Microscopic RBC (0-3) per hpf Urine Microscopic WBC (0-3) per hpf Ur Squamous Epith Cells (None-Few) per lpf Urine Bacteria (None-Few) per hpf Hyaline Casts (None-Few) per lpf Ur Culture Indicated? (NO) 01/01/18 01/02/18 Range/Units 23:44 00:20 WBC (4.3-11.1) K/mcL RBC (3.82-4.97) M/mcL Hgb (11.5-15.4) g/dL Hct (35.3-44.9) % MCV (83.0-100.0) fL MCH (28.0-33.3) pg MCHC (31.6-35.5) g/dL RDW (11.5-14.5) % Plt Count (140-400) K/mcL MPV (9.4-12.4) fL Immature Gran % (0-4) % Seg Neutrophils % % Lymphocytes % % Monocytes % % Eosinophils % % Basophils % % Neutrophils # (1.6-8.9) K/mcL Lymphocytes # (0.6-4.6) K/mcL Monocytes # (0.0-1.3) K/mcL Eosinophils # (0.0-0.6) K/mcL Basophils # (0.0-0.2) K/mcL PT (9.4-12.1) Seconds INR Sodium (136-145) mEq/L Potassium (3.5-5.1) mEq/L Chloride (98-107) mEq/L Carbon Dioxide (23-29) mEq/L BUN (8-23) mg/dL Creatinine (0.60-1.20) mg/dL Est GFR ( Amer) (> 60) Est GFR (Non-Af Amer) (> 60) BUN/Creatinine Ratio (6-26) Glucose (70-105) mg/dL POC Glucose 149 H (70-99) mg/dL Calculated Osmolality (280-300) Calcium (8.6-10.3) mg/dL Total Bilirubin (0.3-1.0) mg/dL AST (13-39) Units/L ALT (7-52) Units/L Alkaline Phosphatase (34-104) Units/L Troponin I (< 0.04) ng/mL Serum Total Protein (6.4-8.9) g/dL Albumin (3.5-5.7) g/dL Globulin (2.4-3.5) g/dL Albumin/Globulin Ratio (1.1-2.2) TSH (0.340-5.600) mcIU/mL Urine Color Yellow (Yellow) Urine Clarity Clear (Clear) Urine pH 6.0 (5.0-8.0) pH Units Ur Specific [place] 1.024 (1.010-1.025) Urine Protein Trace (Neg-Trace) mg/dL Urine Glucose (UA) Normal (Normal) mg/dL Urine Ketones Negative (Negative) mg/dL Urine Blood Trace H (Negative) Urine Nitrite Negative (Negative) Urine Bilirubin Negative (Negative) Urine Urobilinogen Normal (Normal) mg/dL Ur Leukocyte Esterase Small H (Negative) Urine Microscopic RBC 3-5 H (0-3) per hpf Urine Microscopic WBC 5-15 H (0-3) per hpf Ur Squamous Epith Cells Many H (None-Few) per lpf Urine Bacteria None Seen (None-Few) per hpf Hyaline Casts None Seen (None-Few) per lpf Ur Culture Indicated? NO. A (NO) Attestation Statement - Attestation Attestation: For this encounter, I have reviewed the BID WRITER or PA documentation, treatment plan, and medical decision making; and I have had face to face time with this patient. Patient ED with syncope 2. Both occurred in bowel movements. Patient states currently being worked up for heart problems. Lives alone. Patient in no distress on examination laying in bed with clear lungs. Plan. Cardiac workup has been unremarkable. We will observe.
--- NOTE | 2018-01-02 02:48 | Internal Med History&Physical ---
Date of Encounter: 01/02/18 Time of Encounter: 02:44 Internal Medicine - H&P: HPI Chief complaint: syncope Admitted From: Emergency Dept Plans for Post Hospital Care: Home History of present illness: Ms. Gottlieb is a 67 year old female with PMH of HTN, HLD, s/p CEA, anxiety, lung nodules for which she says she is being worked up for possible malignancy who presents after a couple of syncopal episodes from earlier last evening. The patient says she has been having a cough for about a week and has been feeling hot and cold but no measured fever. She says she was put on a course of steroids last week and again a day or 2 ago. Yesterday she was started on levaquin. She is not exactly sure why she was put on it. She tells me that her doctor wanted to keep the infection down because of the lung nodules. She says she was with her granddaughter at home and she got up to go to the bathroom and by the time she got to the door she started feeling nauseous and dizzy and collapsed on the floor. She thinks she lost consciousness and her granddaughter helped her up to the commode and she had a bowel movement that was nonbloody and loose. She also urinated. She went back to the couch feeling ok but then had the urge to go and have another bowel movement and the same thing happened again. She got to the door and collapsed feeling similar as before with some palpitations. She again got up and had a watery nonbloody stool. She also reports a dry cough for a week. She ended up coming to the ED to get evaluated. In the ED laboratory work up showed leukocytosis and mild hypokalemia. UA was negative for UTI. I was asked to admit the patient. A CT head was negative. She denies fever, vomiting, headach, blurry vision, abdominal pain, constipation, urinary symptoms, numbness, or tingling. Past Med Surg Social Fam HX - Past Medical History Medical history: hyperlipidemia, hypertension, myocardial infarction, other Psychiatric history: anxiety - Past Surgical History Surgical History: appendectomy, cholecystectomy, hysterectomy, other - Social History Smoking Status: Current every day smoker Smokeless Tobacco Status: No Alcohol use: none Drug use: none - Family History Mother Family Member Ethnicity: Non- Living Status: Hx Family Cardiac Disorders: Yes (CAD,HTN) Brother Family Member Ethnicity: Non- Living Status: Still Living Hx Family Cancer: Yes (melonoma) Sister Family Member Ethnicity: Non- Living Status: Still Living Hx Family Cancer: Yes (Bone) Father Adopted: No Family Member Ethnicity: Non- Living Status: Hx Family Cardiac Disorders: Yes Hx Family Respiratory Disorders: Yes Hx Family Cancer: No Hx Family GI Disorders: No Hx Family Endocrine Disorder: No Hx Family Neuromuscular Disorders: No Hx Family Neurologic Disorders: No Hx Family HEENT Disorders: No Hx Family Autoimmune Disorders: No Internal Medicine - H&P: Meds Aspirin 81 mg PO DAILY 04/07/15 [History] Cetirizine HCl [Zyrtec] 10 mg PO DAILY 04/07/15 [History] Lansoprazole [Prevacid] 30 mg PO DAILY #0 04/07/15 [History] clonazePAM [Klonopin] 1 mg PO BID #0 04/07/15 [History] Albuterol Sulfate [Ventolin Hfa] 2 puff IH Q4H PRN 07/06/17 [History] Metoprolol XL (24 HR) Succ [Toprol Xl] 25 mg PO DAILY 07/06/17 [History] Venlafaxine XR (24 HR) [Effexor Xr] 150 mg PO DAILY 07/06/17 [History] Acetaminophen [Tylenol] 650 mg PO Q6HR PRN tablet 07/08/17 [Rx] Atorvastatin [Lipitor] 10 mg PO HS #30 tablet 07/08/17 [Rx] Lisinopril [Zestril] 20 mg PO BID #60 tablet 07/08/17 [Rx] HYDROcodone/Acet 5/325 mg [[place] 5-325 mg] 1 tab PO Q6H PRN #12 tab 08/27/17 [Rx ] Naproxen [Naprosyn] 500 mg PO BID PRN #20 tablet 09/02/17 [Rx] levoFLOXacin [Levaquin] 750 mg PO DAILY #10 tablet 11/02/17 [Rx] predniSONE [Prednisone] 50 mg PO DAILY #5 tablet 11/02/17 [Rx] 3 Allergy/AdvReac Type Severity Reaction Status Date / Time clarithromycin [From Biaxin] Allergy Anaphylaxis Verified 11/02/17 10:02 morphine Allergy Anaphylaxis Verified 11/02/17 10:02 codeine AdvReac Vomiting Verified 11/02/17 10:02 All Systems PM: A 10-system review of systems was performed and is negative for pertinent findings except as documented above in the HPI. Review of systems: All systems reviewed are negative except for as mentioned above - Constitutional Vitals: Temp Pulse Resp BP Pulse Ox 98.1 F 80 16 149/76 95 01/01/18 22:10 01/02/18 02:40 01/02/18 02:40 01/02/18 02:40 01/02/18 02:40 Exam: GEN: NAD HEENT: AT, NC, No cyanosis, oral mucosa is moist, No JVD Lymphatics: No lymphadenoapthy Eyes: Extrocular muscles intact, anicteric CVS:RRR. S1, S2, No m/r/g RESP: CTAB ABD: Soft, NT, ND, +BS EXT: No edema, No rashes, 2+ DP NEURO: Nonfocal, CN II-XII intact, No focal motor or sensory deficits Psych: Cooperative, Not anxious or depressed Internal Med - H&P Results - Labs CBC & Chem 7: 01/01/18 22:11 01/01/18 22:11 Labs: Short CBC 01/01/18 Range/Units 22:11 WBC 15.5 H (4.3-11.1) K/mcL Hgb 14.7 (11.5-15.4) g/dL Hct 44.2 (35.3-44.9) % Plt Count 335 (140-400) K/mcL Neutrophils # 10.5 H (1.6-8.9) K/mcL BMP 01/01/18 22:11 Sodium 134 L Potassium 3.4 L Chloride 96 L Carbon Dioxide 28 BUN 22 Creatinine 0.97 Glucose 211 H Calcium 9.9 Cardiac Enzymes 01/01/18 Range/Units 22:11 Troponin I < 0.03 (< 0.04) ng/mL Liver Function 01/01/18 Range/Units 22:11 Total Bilirubin 0.4 (0.3-1.0) mg/dL AST 13 (13-39) Units/L ALT 11 (7-52) Units/L Alkaline Phosphatase 130 H (34-104) Units/L Albumin 4.7 (3.5-5.7) g/dL Urine 01/02/18 Range/Units 00:20 Urine Color Yellow (Yellow) Urine Clarity Clear (Clear) Urine pH 6.0 (5.0-8.0) pH Units Ur Specific [place] 1.024 (1.010-1.025) Urine Protein Trace (Neg-Trace) mg/dL Urine Glucose (UA) Normal (Normal) mg/dL - Impressions ITS Impressions Head CT 01/02/18 01:13 IMPRESSION: No acute intracranial abnormality. D/ / Corby Franco MD / Corby Franco MD Interpreting Provider: Corby Franco MD - Assessment and plan (1) Syncope and collapse Current Visit: No Status: Acute Assessment and plan: Admit the patient. Keep on telemetry. EKG normal sinus rhythm. Unclear etiology. Check orthostatics. Check TSH. Patient has had loose stools a couple times and a cough. Will rule out infectious etiology as below. Possibly vasovagal episode. Check limited echo. Patient had a complete echo and carotid duplex as mentioned in HPI. We will gently hydrate. The patient had the following work up recently: Carotid US in July with nonstenotic plaques Stress test in June negative. Last echo in June 2017 with LVEF 60%. Not all LV segments were well visualized, but overall function appears normal. (2) Leukocytosis Current Visit: Yes Status: Acute Assessment and plan: he patient has been on prednisone sometime last week and was put on prednisone again according to the patient yesterday. She was also put on Levaquin. The patient is unable to tell me exactly why. Leukocytosis could be explained by the prednisone. She does report a cough and loose stools. We will rule out C. difficile. Check GI stool panel. Check a chest x-ray. UA is not indicative of UTI. The patient has no wheezing on examination. I do not see a reason for the antibiotics for now. We will hold off on further prednisone and antibiotics for now pending further workup. Qualifiers: Leukocytosis type: unspecified Qualified Code(s): D72.829 - Elevated white blood cell count, unspecified (3) Hypertension Current Visit: No Status: Chronic Assessment and plan: Resume home antihypertensives Qualifiers: Hypertension type: essential hypertension Qualified Code(s): I10 - Essential (primary) hypertension (4) Anxiety Current Visit: No Status: Chronic Assessment and plan: Resume Klonopin. (5) HLD (hyperlipidemia) Current Visit: No Status: Chronic Assessment and plan: Continue statin Qualifiers: Hyperlipidemia type: pure hypercholesterolemia Qualified Code(s): E78.00 - Pure hypercholesterolemia, unspecified; E78.0 - Pure hypercholesterolemia (6) Pulmonary nodules Current Visit: Yes Status: Acute Assessment and plan: Being worked up in the outpatient setting for possible malignancy. (7) DVT prophylaxis Current Visit: No Status: Acute Assessment and plan: Heparin subcutaneous - Time Spent With Patient Total time spent is greater than 50% in coordination of care (as documented) at patient's floor/unit and/or counseling patient:
[2018-01-02] MEDS ORDERED: Naloxone 0.4 MG/ML INJ IVP PRN (02:53)
[2018-01-02] MEDS ORDERED: Acetaminophen 325 MG TABLET PO PRN (02:53)
[2018-01-02 03:29] LABS: Thyroid Stimulating Hormone 0.705 mcIU/mL (0.340-5.600)
[2018-01-02 03:48] LABS: Basophils % 0.2 %; Eosinophils # 0.3 K/mcL (0.0-0.6); Hematocrit 41.8 % (35.3-44.9); Hemoglobin 13.9 g/dL (11.5-15.4); Immature Granulocytes % 1.1 % (0-4); Lymphocytes # 4.4 K/mcL (0.6-4.6); Lymphocytes % 26.6 %; Mean Corpuscular HGB Conc 33.3 g/dL (31.6-35.5); Mean Corpuscular Hemoglobin 27.4 pg (28.0-33.3); Mean Corpuscular Volume 82.4 fL (83.0-100.0); Mean Platelet Volume 9.8 fL (9.4-12.4); Monocytes # 1.3 K/mcL (0.0-1.3); Monocytes % 7.9 %; Neutrophils # 10.3 K/mcL (1.6-8.9); Platelet Count 301 K/mcL (140-400); Red Blood Count 5.07 M/mcL (3.82-4.97); Red Cell Distribution Width 13.7 % (11.5-14.5); Segmented Neutrophils % 62.2 %
[2018-01-02 04:09] LABS: BUN/Creatinine Ratio 22 (6-26); Blood Urea Nitrogen 20 mg/dL (8-23); Calcium 9.1 mg/dL (8.6-10.3); Carbon Dioxide 29 mEq/L (23-29); Chloride 101 mEq/L (98-107); Glucose 110 mg/dL (70-105); Osmolality,Calculated 289 (280-300); Potassium 3.6 mEq/L (3.5-5.1); Sodium 138 mEq/L (136-145); eGFR For African Americans > 60 (> 60); eGFR For Non-African Americans > 60 (> 60)
[2018-01-02] MEDS: 0.9 % Sodium Chloride 1,000 ML IVC SCH ×4 (06:13→18:05)
[2018-01-02] MEDS: *HR* Heparin 5,000 UNIT/ML VIAL SQ SCH ×3 (06:13→21:17)
[2018-01-02] MEDS: clonazePAM 1 MG TABLET PO SCH ×2 (08:42→21:17)
[2018-01-02] MEDS: Lisinopril 20 MG TABLET PO SCH ×2 (08:42→21:16)
[2018-01-02] MEDS: Loratadine 10 MG TABLET PO SCH (08:42)
[2018-01-02] MEDS: Aspirin 81 MG TAB.CHEW PO SCH (08:42)
[2018-01-02] MEDS: Metoprolol XL (24 HR) Succ 25 MG TAB.ER.24H PO SCH (08:42)
[2018-01-02] MEDS: Venlafaxine XR (24 HR) 150 MG CAP.ER.24H PO SCH (08:42)
[2018-01-02 09:50] LABS: Estimated Average Glucose 157 mg/dl; Hemoglobin A1C 7.1 %
--- NOTE | 2018-01-02 16:17 | Event Note ---
Date of Encounter: 01/02/18 Time of Encounter: 16:05 (1) Syncope and collapse suspect vasovagal episode. Recent Carotid US in July with nonstenotic plaques. Stress test in June negative. Repeat TTE with EF 60%, normal right ventricular structure and function, no wall motion abnormalities and a trivial pericardial effusion. No symptom recurrence while inpatient. Concern for possible polypharmacy as well as patient appears sedated and altered. UDS pending. Orthostatic BP pending (2) Leukocytosis WBC 16K, suspect secondary to patient prednisone use. UA not indicative of UTI , CXR without evidence of pneumonia. She did report loose stool therefore check stool for C. difficile. No hypotension or tachycardia. Hold on ATB at this time. . (3) Hypertension Resume home antihypertensives (4) Anxiety Resume Klonopin. (5) HLD (hyperlipidemia) Continue statin (6) Pulmonary nodules Being worked up in the outpatient setting for possible malignancy. (7) DVT prophylaxis Heparin
[2018-01-02] MEDS: *HR* HYDROcodone/Acet 5/325 mg TABLET PO PRN (21:26)
[2018-01-02 22:10] LABS: Amphetamine Screen,Urine Negative ng/mL (Cutoff=1000); Barbiturate Screen,Urine Negative ng/mL (Cutoff=200); Benzodiazepines Screen,Urine Negative ng/mL (Cutoff=200); Cannabinoid Screen,Urine Negative ng/mL (Cutoff = 50); Cocaine Screen,Urine Negative ng/mL (Cutoff= 300); Opiate Screen,Urine Negative ng/mL (Cutoff=300); Phencyclidine Screen,Urine Negative ng/mL (Cutoff=25)
[2018-01-03] MEDS: 0.9 % Sodium Chloride 1,000 ML IVC SCH ×3 (03:55→23:44)
[2018-01-03] MEDS: *HR* Heparin 5,000 UNIT/ML VIAL SQ SCH ×3 (05:55→22:02)
[2018-01-03] MEDS: Lisinopril 20 MG TABLET PO SCH ×2 (09:04→22:02)
[2018-01-03] MEDS: Metoprolol XL (24 HR) Succ 25 MG TAB.ER.24H PO SCH (09:04)
[2018-01-03] MEDS: Venlafaxine XR (24 HR) 150 MG CAP.ER.24H PO SCH (09:04)
[2018-01-03] MEDS: Aspirin 81 MG TAB.CHEW PO SCH (09:04)
[2018-01-03] MEDS: clonazePAM 1 MG TABLET PO SCH ×2 (09:04→22:02)
[2018-01-03] MEDS: Loratadine 10 MG TABLET PO SCH (09:04)
--- NOTE | 2018-01-03 15:42 | Internal Med Progress Note ---
Date of Encounter: 01/03/18 Time of Encounter: 15:40 - Assessment and plan (1) Syncope and collapse Current Visit: Yes Status: Acute Assessment and plan: presented after 2 point syncopal episodes with loss of consciousness. 07/2017 carotid US with nonstenotic plaques. 06/2017 stress test negative. Repeat TTE with EF 60%, normal right ventricular structure and function, no wall motion abnormalities and a trivial pericardial effusion. UDS negative. Head CT nonacute. With history of possible malignancy pain brain MRI with and without contrast to rule out metastasis. If patient remains symptomatic consider ENT consult as patient reported sensation of vertigo with room spinning. (2) Hypertension Current Visit: No Status: Chronic Assessment and plan: per hx. BP not well-controlled. Add low-dose amlodipine. Continue home JUAN, BB. Monitor BP and titrate PRN Qualifiers: Hypertension type: essential hypertension Qualified Code(s): I10 - Essential (primary) hypertension (3) Leukocytosis Current Visit: Yes Status: Acute Assessment and plan: WBC 16K, suspect secondary to patient prednisone use. UA not indicative of UTI , CXR without evidence of pneumonia. She did report loose stool therefore check stool for C. difficile however she has not had a bowel movement since eating hospitalized. No hypotension or tachycardia. Hold on ATB at this time. Qualifiers: Leukocytosis type: unspecified Qualified Code(s): D72.829 - Elevated white blood cell count, unspecified (4) Anxiety Current Visit: No Status: Chronic Assessment and plan: per hx. Cont home Klonopin. (5) HLD (hyperlipidemia) Current Visit: No Status: Chronic Assessment and plan: per hx. Cont home statin Qualifiers: Hyperlipidemia type: pure hypercholesterolemia Qualified Code(s): E78.00 - Pure hypercholesterolemia, unspecified; E78.0 - Pure hypercholesterolemia (6) Pulmonary nodules Current Visit: Yes Status: Acute Assessment and plan: Being worked up in the outpatient setting for possible malignancy. Was scheduled for lung biopsy on 01/03/18; daughter to reschedule. (7) DVT prophylaxis Current Visit: No Status: Acute Assessment and plan: Heparin - Time Spent With Patient Total time spent is greater than 50% in coordination of care (as documented) at patient's floor/unit and/or counseling patient: - Subjective Interval history: Seen and examined at bedside. Patient is new to me, information obtained from chart review and patient report. She still complaining of being lightheaded and dizzy. Reports a sensation of room spinning and feels like she is seeing double. No palpitations. No chest pain or shortness of breath - Constitutional Vitals: Temp Pulse Resp BP Pulse Ox 99.3 F 83 18 154/79 93 01/03/18 11:45 01/03/18 11:45 01/03/18 11:45 01/03/18 11:45 01/03/18 11:45 General appearance: Present: A&O X 3, no acute distress - Head Head exam: Present: atraumatic, normocephalic - Eye Eye exam: Present: PERRL, conjuntiva pink, sclera anicteric Pupils: Present: PERRL - Neck Neck exam general surgery: Present: supple, trachea midline. Absent: lymphadenopathy - Respiratory Respiratory exam: Present: CTAB. Absent: accessory muscle use, rales, rhonchi, wheezes - Cardiovascular Cardiovascular exam: Present: RRR, +S1, +S2. Absent: diastolic murmur, gallop, rubs, systolic murmur - GI/Abdominal GI/Abdominal exam: Present: normal bowel sounds, soft, no peritoneal signs. Absent: distended, tenderness - Extremities Exam Extremities exam: Present: warm, radial pulses palpable and symmetrical. Absent : calf tenderness, cyanotic, pedal edema - Neurological Exam Neurological exam: Present: CN II-XII intact, oriented X3, no focal deficits. Absent: pronater drift, facial droop, speech deficit - Skin Skin exam: Present: dry, intact Internal Medicine: Result - Labs CBC & Chem 7: 01/02/18 03:38 01/02/18 03:38 Labs: Cardiac Enzymes 01/02/18 01/02/18 01/03/18 Range/Units 14:52 20:47 01:47 Troponin I < 0.03 < 0.03 < 0.03 (< 0.04) ng/mL - ABG Interpretation ABG results: PT/INR, D-dimer PT 9.7 Seconds (9.4-12.1) 01/01/18 22:11 Consult Discharge Plan - Plan Referrals: Uriel Miramontes MD [Primary Care Provider] -
[2018-01-03] MEDS ORDERED: Gadolinium Contrast Agent (WT Based) IV PRN (15:54)
[2018-01-03] MEDS: amLODIPine 5 MG TABLET PO SCH (16:24)
[2018-01-03 16:31] LABS: Hematocrit 32.7 % (35.3-44.9); Mean Corpuscular HGB Conc 33.6 g/dL (31.6-35.5); Mean Corpuscular Hemoglobin 27.8 pg (28.0-33.3); Mean Corpuscular Volume 82.6 fL (83.0-100.0); Mean Platelet Volume 10.1 fL (9.4-12.4); Platelet Count 201 K/mcL (140-400); Red Blood Count 3.96 M/mcL (3.82-4.97); Red Cell Distribution Width 13.3 % (11.5-14.5)
[2018-01-04] MEDS: *HR* Heparin 5,000 UNIT/ML VIAL SQ SCH ×3 (06:13→21:41)
[2018-01-04 08:16] LABS: Hematocrit 33.5 % (35.3-44.9); Hemoglobin 11.3 g/dL (11.5-15.4); Immature Platelets 3.7 % (1.1-6.1); Mean Corpuscular HGB Conc 33.7 g/dL (31.6-35.5); Mean Corpuscular Hemoglobin 27.2 pg (28.0-33.3); Mean Corpuscular Volume 80.7 fL (83.0-100.0); Red Blood Count 4.15 M/mcL (3.82-4.97); Red Cell Distribution Width 13.2 % (11.5-14.5)
[2018-01-04] MEDS: Aspirin 81 MG TAB.CHEW PO SCH (09:41)
[2018-01-04] MEDS: clonazePAM 1 MG TABLET PO SCH ×2 (09:41→19:50)
[2018-01-04] MEDS: Loratadine 10 MG TABLET PO SCH (09:41)
[2018-01-04] MEDS: Metoprolol XL (24 HR) Succ 25 MG TAB.ER.24H PO SCH (09:41)
[2018-01-04] MEDS: 0.9 % Sodium Chloride 1,000 ML IVC SCH ×3 (09:41→21:40)
[2018-01-04] MEDS: Lisinopril 20 MG TABLET PO SCH ×2 (09:41→19:50)
[2018-01-04] MEDS: amLODIPine 5 MG TABLET PO SCH (09:42)
[2018-01-04] MEDS: Venlafaxine XR (24 HR) 150 MG CAP.ER.24H PO SCH (09:43)
--- NOTE | 2018-01-04 16:56 | Electrocardiograph Report ---
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
--- NOTE | 2018-01-04 17:04 | Internal Med Progress Note ---
Date of Encounter: 01/04/18 Time of Encounter: 10:05 - Assessment and plan (1) Hypertension Current Visit: Yes Status: Chronic Assessment and plan: Chronic. Well controlled since addition of amlodipine. Continue other home medications, monitor BP. Qualifiers: Hypertension type: essential hypertension Qualified Code(s): I10 - Essential (primary) hypertension (2) Anxiety Current Visit: Yes Status: Chronic Assessment and plan: Chronic. Continue home medications. (3) HLD (hyperlipidemia) Current Visit: Yes Status: Chronic Assessment and plan: Chronic. Continue home dose of Lipitor. Qualifiers: Hyperlipidemia type: pure hypercholesterolemia Qualified Code(s): E78.00 - Pure hypercholesterolemia, unspecified; E78.0 - Pure hypercholesterolemia (4) DVT prophylaxis Current Visit: Yes Status: Acute Assessment and plan: Heparin SQ TID. (5) Syncope and collapse Current Visit: Yes Status: Acute Assessment and plan: Pt continues to have some dizziness, though it is improved over admission. MRI brain negative for acute infarct. Pt with recent carotids and stress test at the end of 2016. Carotids with nonstenotic plaque and stress negative. Limited Echo shows LVEF 60%, trivial pericardial effusion without evidence of tamponade. We will try meclizine by mouth overnight and assess for effectiveness. If no change in condition, will consult ENT in the morning. (6) Leukocytosis Current Visit: Yes Status: Resolved Assessment and plan: Resolved. Qualifiers: Leukocytosis type: unspecified Qualified Code(s): D72.829 - Elevated white blood cell count, unspecified (7) Pulmonary nodules Current Visit: Yes Status: Acute Assessment and plan: Per PET scan on there is an adjacent 5 mm right upper lobe pulmonary nodule that is below the PET/CT threshold. Patient is being worked up outpatient. She does have a hypermetabolic right upper lobe pulmonary nodule compatible with malignancy. Daughter to reschedule lung biopsy. - Time Spent With Patient Total time spent is greater than 50% in coordination of care (as documented) at patient's floor/unit and/or counseling patient: less than 15 minutes - Subjective Interval history: Pt was seen and assessed at 1005 a.m. She is alert and awake, denies n/v/d, diaphoresis, headache, vision changes. She reports that she is still dizzy at times and has chills and right anterior inferior rib pain for the last 3 months. no visible injury and denies that it is from a fall, although it is tender to light palpation. - Constitutional Vitals: Temp Pulse Resp BP Pulse Ox 98.2 F 93 16 122/71 95 01/04/18 15:15 01/04/18 15:15 01/04/18 15:15 01/04/18 15:15 01/04/18 15:15 General appearance: Present: A&O X 3, pleasant, no acute distress, answers questions appropriately - Head Head exam: Present: atraumatic, normal inspection, normocephalic - Eye Eye exam: Present: normal appearance, conjuntiva pink, sclera anicteric - Neck Neck exam general surgery: Present: supple, trachea midline. Absent: lymphadenopathy, tenderness - Respiratory Respiratory exam: Present: chest wall tenderness, CTAB. Absent: accessory muscle use, rales, respiratory distress, rhonchi, wheezes - Cardiovascular Cardiovascular exam: Present: RRR, +S1, +S2. Absent: diastolic murmur, gallop, rubs, systolic murmur - GI/Abdominal GI/Abdominal exam: Present: normal bowel sounds, soft. Absent: distended, hepatomegaly, tenderness - Extremities Exam Extremities exam: Present: normal capillary refill, normal inspection, warm, radial pulses palpable and symmetrical. Absent: calf tenderness, cyanotic, pedal edema - Neurological Exam Neurological exam: Present: alert, oriented X3, no focal deficits. Absent: facial droop, speech deficit - Skin Skin exam: Present: dry, intact, normal color, warm. Absent: rash Internal Medicine: Result - Labs CBC & Chem 7: 01/04/18 07:15 01/02/18 03:38 Labs: Short CBC 01/04/18 Range/Units 07:15 WBC 9.8 (4.3-11.1) K/mcL Hgb 11.3 L (11.5-15.4) g/dL Hct 33.5 L (35.3-44.9) % Plt Count 206 (140-400) K/mcL - ABG Interpretation ABG results: PT/INR, D-dimer PT 9.7 Seconds (9.4-12.1) 01/01/18 22:11 - Impressions Impressions Brain MRI 01/03/18 15:54 IMPRESSION: No acute intracranial abnormality. Mild pontine and cerebral white matter disease, most likely chronic microvascular ischemic change. No evidence of intracranial metastatic disease. D/ / Bran Omalley MD / Bran Omalley MD Interpreting Provider: Bran Omalley MD Consult Discharge Plan - Plan Referrals: Uriel Miramontes MD [Primary Care Provider] -
[2018-01-04] MEDS: Melatonin 3 MG TABLET PO SCH (21:41)
[2018-01-05] MEDS: *HR* Heparin 5,000 UNIT/ML VIAL SQ SCH ×3 (05:25→20:30)
[2018-01-05 07:03] LABS: Basophils % 0.3 %; Eosinophils # 0.3 K/mcL (0.0-0.6); Eosinophils % 2.7 %; Hematocrit 32.1 % (35.3-44.9); Hemoglobin 11.1 g/dL (11.5-15.4); Immature Granulocytes % 1.2 % (0-4); Lymphocytes # 2.3 K/mcL (0.6-4.6); Lymphocytes % 24.3 %; Mean Corpuscular HGB Conc 34.6 g/dL (31.6-35.5); Mean Corpuscular Hemoglobin 28.4 pg (28.0-33.3); Mean Corpuscular Volume 82.1 fL (83.0-100.0); Mean Platelet Volume 10.3 fL (9.4-12.4); Monocytes # 0.9 K/mcL (0.0-1.3); Monocytes % 9.1 %; Platelet Count 188 K/mcL (140-400); Red Blood Count 3.91 M/mcL (3.82-4.97); Red Cell Distribution Width 13.3 % (11.5-14.5); Segmented Neutrophils % 62.4 %
[2018-01-05 07:13] LABS: BUN/Creatinine Ratio 14 (6-26); Blood Urea Nitrogen 11 mg/dL (8-23); Calcium 8.2 mg/dL (8.6-10.3); Carbon Dioxide 25 mEq/L (23-29); Chloride 102 mEq/L (98-107); Glucose 107 mg/dL (70-105); Osmolality,Calculated 278 (280-300); Potassium 3.1 mEq/L (3.5-5.1); Sodium 134 mEq/L (136-145); eGFR For African Americans > 60 (> 60); eGFR For Non-African Americans > 60 (> 60)
[2018-01-05] MEDS: Aspirin 81 MG TAB.CHEW PO SCH (08:56)
[2018-01-05] MEDS: Loratadine 10 MG TABLET PO SCH (08:56)
[2018-01-05] MEDS: amLODIPine 5 MG TABLET PO SCH (08:56)
[2018-01-05] MEDS: Metoprolol XL (24 HR) Succ 25 MG TAB.ER.24H PO SCH (08:56)
[2018-01-05] MEDS: Venlafaxine XR (24 HR) 150 MG CAP.ER.24H PO SCH (08:56)
[2018-01-05] MEDS: clonazePAM 1 MG TABLET PO SCH ×2 (08:57→20:30)
[2018-01-05] MEDS: *HR* HYDROcodone/Acet 5/325 mg TABLET PO PRN ×2 (08:57→15:47)
[2018-01-05] MEDS: 0.9 % Sodium Chloride 1,000 ML IVC SCH ×2 (08:57→23:53)
[2018-01-05] MEDS: Lisinopril 20 MG TABLET PO SCH ×2 (08:57→20:29)
--- NOTE | 2018-01-05 11:58 | Discharge Summary ---
- NOTES TO OUTPATIENT PROVIDER Notes to Outpatient Provider: Pt admitted for syncopal episodes x 2 prior to admission. All testing and imagning is negative and pt received Meclizine and received relief. Pt has declined home health or PT despite the recommendation by PT. Orders not resulted at time of discharge: Pending orders 01/06/18 04:00 Basic Metabolic Panel AM 0400 Complete Blood Count [HEME] AM 0400 Date of Encounter: 01/05/18 Time of Encounter: 10:30 - Discharge Diagnosis (1) Hypertension Priority: Secondary Status: Chronic Assessment and Plan: Chronic. Well controlled. Continue home medications. Qualifiers: Hypertension type: essential hypertension Qualified Code(s): I10 - Essential (primary) hypertension (2) Anxiety Priority: Secondary Status: Chronic Assessment and Plan: Chronic. Continue home Klonipin and Effexor. (3) HLD (hyperlipidemia) Priority: Secondary Status: Chronic Assessment and Plan: Chronic. Continue statin Qualifiers: Hyperlipidemia type: pure hypercholesterolemia Qualified Code(s): E78.00 - Pure hypercholesterolemia, unspecified; E78.0 - Pure hypercholesterolemia (4) DVT prophylaxis Priority: Secondary Status: Acute Assessment and Plan: Heparin SQ three times daily (5) Syncope and collapse Priority: Primary Status: Acute Assessment and Plan: Pt reports improvement after addition of Meclizine and states that she feels better. MRI brain negative for acute infarct. Pt with recent carotids and stress test at the end of 2016. Carotids with nonstenotic plaque and stress negative. Limited Echo shows LVEF 60%, trivial pericardial effusion without evidence of tamponade. (6) Leukocytosis Priority: Secondary Status: Resolved Assessment and Plan: Resolved. No leukocytosis, fever, tachycardia. Qualifiers: Leukocytosis type: unspecified Qualified Code(s): D72.829 - Elevated white blood cell count, unspecified (7) Pulmonary nodules Priority: Secondary Status: Acute Assessment and Plan: Per PET scan on there is an adjacent 5 mm right upper lobe pulmonary nodule that is below the PET/CT threshold. Patient is being worked up outpatient. She does have a hypermetabolic right upper lobe pulmonary nodule compatible with malignancy. Daughter to reschedule lung biopsy, pt was admitted on 01/03 when it was scheduled. Hospital course: Ms. Gottlieb is a 67 year old female - Time Spent with Patient Total time spent providing and/or coordinating discharge services: - Discharge Medications Prescriptions: amLODIPine [Norvasc] 5 mg PO DAILY #30 tablet Meclizine [Antivert] 25 mg PO TID PRN #30 tablet PRN Reason: Dizziness Home Medications: Aspirin 81 mg PO DAILY 04/07/15 [History] Lansoprazole [Prevacid] 30 mg PO DAILY #0 04/07/15 [History] clonazePAM [Klonopin] 1 mg PO BID #0 04/07/15 [History] Albuterol Sulfate [Ventolin Hfa] 2 puff IH Q4H PRN 07/06/17 [History] Metoprolol XL (24 HR) Succ [Toprol Xl] 25 mg PO DAILY 07/06/17 [History] Venlafaxine XR (24 HR) [Effexor Xr] 150 mg PO DAILY 07/06/17 [History] Acetaminophen [Tylenol] 650 mg PO Q6HR PRN tablet 07/08/17 [Rx] Atorvastatin [Lipitor] 10 mg PO HS #30 tablet 07/08/17 [Rx] Lisinopril [Zestril] 20 mg PO BID #60 tablet 07/08/17 [Rx] HYDROcodone/Acet 5/325 mg [[place] 5-325 mg] 1 tab PO Q6H PRN #12 tab 08/27/17 [Rx ] Naproxen [Naprosyn] 500 mg PO BID PRN #20 tablet 09/02/17 [Rx] Albuterol Neb [Proventil Neb] 2.5 mg IH 3-4XD PRN 01/02/18 [History] Glycopyrrolate/Formoterol Fum [Bevespi Aerosphere Inhaler] 2 puff IH BID [History] Hydrochlorothiazide [Microzide] 12.5 mg PO DAILY 01/02/18 [History] Mirtazapine [Remeron] 15 mg PO HS 01/02/18 [History] Sertraline [Zoloft] 50 mg PO DAILY 01/02/18 [History] Sucralfate [Carafate] 1 gm PO BID 01/02/18 [History] predniSONE [PredniSONE] See Taper PO AD 01/02/18 [History] Meclizine [Antivert] 25 mg PO TID PRN #30 tablet 01/05/18 [Rx] amLODIPine [Norvasc] 5 mg PO DAILY #30 tablet 01/05/18 [Rx] Allergies/Adverse Reactions: 3 Allergy/AdvReac Type Severity Reaction Status Date / Time clarithromycin [From Biaxin] Allergy Anaphylaxis Verified 11/02/17 10:02 morphine Allergy Anaphylaxis Verified 11/02/17 10:02 codeine AdvReac Vomiting Verified 11/02/17 10:02 Date of admission: 01/02/18 03:37 Primary care physician: Uriel Miramontes MD Consults: 01/04/18 13:33 Consult to Occupational Therapy [CONS] Routine Comment: Evaluate, develop and implement POC Reason for Consult: Evaluate. Pt has fallen at home twice prior to admission. Pt reports feeling unsteady. Does patient have active BEDREST order?: No Is patient medically & hemodynamically stable?: Yes Patient assessed for mobility or mobilized this visit?: Yes Consult to Physical Therapy [CONS] Routine Comment: Evaluate, develop and implement POC Reason for Consult: Evaulation. Pt has had falls at home, feels unsteady. Does patient have active BEDREST order?: No Is patient medically & hemodynamically stable?: Yes Patient assessed for mobility or mobilized this visit?: Yes Discharging clinician: Niru Guthrie Anticipated date of discharge: 01/05/18 - Constitutional Vitals: Temp Pulse Resp BP Pulse Ox 98.0 F 73 17 127/72 97 01/05/18 11:27 01/05/18 11:27 01/05/18 11:27 01/05/18 11:27 01/05/18 11:27 General appearance: Present: cooperative, A&O X 3, pleasant, no acute distress, answers questions appropriately - Head Head exam: Present: atraumatic, normal inspection, normocephalic - Eye Eye exam: Present: normal appearance, conjuntiva pink, sclera anicteric - Neck Neck exam general surgery: Present: supple, trachea midline. Absent: lymphadenopathy, tenderness - Respiratory Respiratory exam: Present: chest wall tenderness, CTAB. Absent: accessory muscle use, decreased breath sounds, rales, respiratory distress, rhonchi, wheezes - Cardiovascular Cardiovascular exam: Present: RRR, +S1, +S2. Absent: diastolic murmur, gallop, rubs, systolic murmur - GI/Abdominal GI/Abdominal exam: Present: normal bowel sounds, soft, tenderness. Absent: distended, hepatomegaly - Extremities Exam Extremities exam: Present: normal capillary refill, normal inspection, warm, radial pulses palpable and symmetrical. Absent: calf tenderness, cyanotic, pedal edema, tenderness - Neurological Exam Neurological exam: Present: alert, oriented X3, no focal deficits. Absent: facial droop, speech deficit - Skin Skin exam: Present: dry, intact, normal color, warm. Absent: rash - Patient Status Disposition: Home, Self-Care Condition: Fair Functional capacity at discharge: independent ambulation Overall status at discharge: patient is progressing back to baseline - Discharge Instructions Follow Up With: Uriel Miramontes MD [Primary Care Provider] - 01/12/18 10:00 am Additional Instructions: Please follow up with your PCP in the next 5-7 days Return to the ER as needed for any other problems or concerns or if your symptoms return or worsen. Take your medications as directed. Your new presciptions are at your pharmacy. Return to your normal activities and diet as tolerated. Do not drive your car or operate any type of machinery that requires you to be alert and responsible until you are cleared by your PCP. - Diet and Activity Activity: return to work once cleared by your PCP/specialist, resume usual activities as tolerated Diet: diabetic diet
[2018-01-05] MEDS: Melatonin 3 MG TABLET PO SCH (20:29)
[2018-01-05] MEDS ORDERED: Pantoprazole 40 MG VIAL IVP SCH (23:45)
[2018-01-06] MEDS: *HR* Heparin 5,000 UNIT/ML VIAL SQ SCH (05:53)
[2018-01-06 06:02] LABS: Basophils % 0.2 %; Eosinophils # 0.3 K/mcL (0.0-0.6); Eosinophils % 3.6 %; Hematocrit 31.3 % (35.3-44.9); Hemoglobin 10.7 g/dL (11.5-15.4); Immature Granulocytes % 1.3 % (0-4); Immature Platelets 3.1 % (1.1-6.1); Lymphocytes # 2.2 K/mcL (0.6-4.6); Lymphocytes % 25.9 %; Mean Corpuscular HGB Conc 34.2 g/dL (31.6-35.5); Mean Corpuscular Hemoglobin 28.3 pg (28.0-33.3); Mean Corpuscular Volume 82.8 fL (83.0-100.0); Mean Platelet Volume 10.2 fL (9.4-12.4); Monocytes # 0.9 K/mcL (0.0-1.3); Monocytes % 10.2 %; Neutrophils # 4.9 K/mcL (1.6-8.9); Nucleated Red Blood Cells 0.4 /100 WBC (0); Platelet Count 193 K/mcL (140-400); Red Blood Count 3.78 M/mcL (3.82-4.97); Red Cell Distribution Width 13.2 % (11.5-14.5); Segmented Neutrophils % 58.8 %
[2018-01-06 06:23] LABS: BUN/Creatinine Ratio 12 (6-26); Blood Urea Nitrogen 10 mg/dL (8-23); Calcium 8.2 mg/dL (8.6-10.3); Carbon Dioxide 22 mEq/L (23-29); Chloride 104 mEq/L (98-107); Glucose 106 mg/dL (70-105); Osmolality,Calculated 283 (280-300); Potassium 3.3 mEq/L (3.5-5.1); Sodium 137 mEq/L (136-145); eGFR For African Americans > 60 (> 60); eGFR For Non-African Americans > 60 (> 60)
[2018-01-06 07:15] VITALS: BP 153/77
[2018-01-06] MEDS: Loratadine 10 MG TABLET PO SCH (08:16)
[2018-01-06] MEDS: Metoprolol XL (24 HR) Succ 25 MG TAB.ER.24H PO SCH (08:16)
[2018-01-06] MEDS: Aspirin 81 MG TAB.CHEW PO SCH (08:16)
[2018-01-06] MEDS: Lisinopril 20 MG TABLET PO SCH (08:16)
[2018-01-06] MEDS: Venlafaxine XR (24 HR) 150 MG CAP.ER.24H PO SCH (08:17)
[2018-01-06] MEDS: clonazePAM 1 MG TABLET PO SCH (08:17)
[2018-01-06] MEDS: amLODIPine 5 MG TABLET PO SCH (08:17)
[2018-01-06] MEDS: 0.9 % Sodium Chloride 1,000 ML IVC SCH (09:54)
[2018-01-06 10:16] LABS: % Iron Saturation 11 % (15-50); Iron 33 mcg/dL (50-170); Transferrin 211 mg/dL (203-362)
--- NOTE | 2018-01-06 10:41 | Internal Med Progress Note ---
Date of Encounter: 01/06/18 Time of Encounter: 10:05 - Assessment and plan (1) Hypertension Current Visit: Yes Status: Chronic Assessment and plan: Chronic. Continue home medications. Qualifiers: Hypertension type: essential hypertension Qualified Code(s): I10 - Essential (primary) hypertension (2) Anxiety Current Visit: Yes Status: Chronic Assessment and plan: Chronic. Continue home medications (3) HLD (hyperlipidemia) Current Visit: Yes Status: Chronic Assessment and plan: Chronic. Continue statin Qualifiers: Hyperlipidemia type: pure hypercholesterolemia Qualified Code(s): E78.00 - Pure hypercholesterolemia, unspecified; E78.0 - Pure hypercholesterolemia (4) DVT prophylaxis Current Visit: Yes Status: Acute Assessment and plan: Heparin SQ TID. Pt ambulatory in the room. (5) Syncope and collapse Current Visit: Yes Status: Acute Assessment and plan: Pt reports improvement after addition of Meclizine and states that she feels better. Discussed all results with pt, I have encouraged her to see PCP in the next 5-7 days and to see ENT if symptoms do not resolve. Suspect BPPV, improving. (6) Leukocytosis Current Visit: Yes Status: Resolved Assessment and plan: Resolved. Qualifiers: Leukocytosis type: unspecified Qualified Code(s): D72.829 - Elevated white blood cell count, unspecified (7) Pulmonary nodules Current Visit: Yes Status: Acute Assessment and plan: Patient is being worked up outpatient. Pt has anxiety regarding testing and is suggesting that she may not follow up. I encouraged her to go explore her options, she verbalized agreement. Daughter to reschedule lung biopsy, pt was admitted on 01/03 when it was scheduled. (8) Anemia Current Visit: Yes Status: Acute Assessment and plan: Pt with mild, stable anemia since admission. Labs indicate iron deficiency anemia, iron 33, %sat 11, B12 and folate WNL. Ferrous Sulfate 325mg po twice daily and Colace prn constipation. Follow with PCP. Qualifiers: Anemia type: iron deficiency Iron deficiency anemia type: unspecified iron deficiency Qualified Code(s): D50.9 - Iron deficiency anemia, unspecified - Time Spent With Patient Total time spent is greater than 50% in coordination of care (as documented) at patient's floor/unit and/or counseling patient: less than 15 minutes - Subjective Interval history: Pt was seen and assessed at 1005 a.m. She is alert and awake, denies n/v/d, diaphoresis, headache, vision changes. She reports that dizziness is improved, Meclizine is working. States that she feels like she is back to baseline, BP controlled, pt is ready for discharge. - Constitutional Vitals: Temp Pulse Resp BP Pulse Ox 98.1 F 85 16 153/77 96 01/06/18 07:14 01/06/18 07:14 01/06/18 07:14 01/06/18 07:14 01/06/18 08:15 General appearance: Present: cooperative, A&O X 3, pleasant, no acute distress, answers questions appropriately - Head Head exam: Present: atraumatic, normal inspection, normocephalic - Eye Eye exam: Present: normal appearance, conjuntiva pink, sclera anicteric - Neck Neck exam general surgery: Present: normal inspection, supple, trachea midline. Absent: lymphadenopathy, tenderness - Respiratory Respiratory exam: Present: CTAB. Absent: accessory muscle use, rales, respiratory distress, rhonchi, wheezes - Cardiovascular Cardiovascular exam: Present: RRR, +S1, +S2. Absent: diastolic murmur, gallop, rubs, systolic murmur - GI/Abdominal GI/Abdominal exam: Present: normal bowel sounds, soft, tenderness. Absent: distended, hepatomegaly - Extremities Exam Extremities exam: Present: normal capillary refill, normal inspection, warm, radial pulses palpable and symmetrical. Absent: calf tenderness, cyanotic, pedal edema, tenderness - Neurological Exam Neurological exam: Present: alert, oriented X3, no focal deficits. Absent: facial droop, speech deficit - Skin Skin exam: Present: dry, intact, normal color, warm. Absent: rash Internal Medicine: Result - Labs CBC & Chem 7: 01/06/18 05:03 01/06/18 05:03 Labs: Short CBC 01/06/18 Range/Units 05:03 WBC 8.4 (4.3-11.1) K/mcL Hgb 10.7 L (11.5-15.4) g/dL Hct 31.3 L (35.3-44.9) % Plt Count 193 (140-400) K/mcL Neutrophils # 4.9 (1.6-8.9) K/mcL BMP 01/06/18 05:03 Sodium 137 Potassium 3.3 L Chloride 104 Carbon Dioxide 22 L BUN 10 Creatinine 0.84 Glucose 106 H Calcium 8.2 L - ABG Interpretation ABG results: PT/INR, D-dimer PT 9.7 Seconds (9.4-12.1) 01/01/18 22:11 Consult Discharge Plan - Plan Instructions: Syncope (DC), Acute Abdominal Pain (DC) Additional Instructions: Please follow up with your PCP in the next 5-7 days Return to the ER as needed for any other problems or concerns or if your symptoms return or worsen. Take your medications as directed. Your new presciptions are at your pharmacy. Return to your normal activities and diet as tolerated. Do not drive your car or operate any type of machinery that requires you to be alert and responsible until you are cleared by your PCP. Referrals: Uriel Miramontes MD [Primary Care Provider] - 01/12/18 10:00 am Prescriptions: amLODIPine [Norvasc] 5 mg PO DAILY #30 tablet Docusate [Colace] 100 mg PO BID PRN #30 capsule PRN Reason: Constipation Ferrous Sulfate 325 mg PO BID #60 tablet Meclizine [Antivert] 25 mg PO TID PRN #30 tablet PRN Reason: Dizziness
[2018-01-06 10:44] LABS: Folate 17.4 ng/mL (3.0-16.0)
== END 2018-01-06 13:15 | disposition home or self-care (01) ==
LOC: EMEROO 21:58 → 3BNU 21:58
PROVIDERS: ADMIT Internal Medicine; ATTEND Internal Medicine

== ENCOUNTER 2020-08-10 21:43 | Observation (INO) ==
[2020-08-10] MEDS ORDERED: 0.9 % Sodium Chloride 1,000 ML IVC ONE ×2 (21:53→23:29)
[2020-08-10] MEDS ORDERED: Ondansetron 4 MG/2 ML VIAL IVP ONE (21:53)
[2020-08-10] MEDS ORDERED: Ketorolac 15 MG/ML VIAL IVP ONE (21:55)
[2020-08-10 22:52] LABS: Basophils % 0.1 %; Eosinophils # 0.1 K/mcL (0.0-0.6); Eosinophils % 0.6 %; Hemoglobin 15.7 g/dL (11.5-15.4); Immature Granulocytes % 0.4 % (0-4); Lymphocytes # 1.7 K/mcL (0.6-4.6); Mean Corpuscular HGB Conc 34.1 g/dL (31.6-35.5); Mean Corpuscular Hemoglobin 27.1 pg (28.0-33.3); Mean Corpuscular Volume 79.4 fL (83.0-100.0); Mean Platelet Volume 10.3 fL (9.4-12.4); Monocytes # 0.8 K/mcL (0.0-1.3); Monocytes % 5.4 %; Neutrophils # 11.4 K/mcL (1.6-8.9); Platelet Count 276 K/mcL (140-400); Red Blood Count 5.79 M/mcL (3.82-4.97); Red Cell Distribution Width 14.4 % (11.5-14.5); Segmented Neutrophils % 81.5 %; White Blood Count 13.9 K/mcL (4.3-11.1)
[2020-08-10 22:57] LABS: BUN/Creatinine Ratio 20 (6-26); Blood Urea Nitrogen 17 mg/dL (8-23); Calcium 9.4 mg/dL (8.6-10.3); Carbon Dioxide 22 mEq/L (23-29); Chloride 96 mEq/L (98-107); Glucose 165 mg/dL (70-105); Magnesium 1.5 mg/dL (1.6-2.6); Osmolality,Calculated 285 (280-300); Potassium 2.7 mEq/L (3.5-5.1); Sodium 135 mEq/L (136-145); eGFR For African Americans > 60 (> 60); eGFR For Non-African Americans > 60 (> 60)
[2020-08-10 23:04] LABS: Troponin I < 0.03 ng/mL (< 0.04)
[2020-08-10] MEDS ORDERED: Potassium Chloride 40 MEQ, Lidocaine 1% 2 ML in 0.9 % Sodium Chloride 500 ML IVPB ONE (23:15)
[2020-08-10 23:24] LABS: Adenovirus Not Detected (Not Detect); Coronavirus 229E Not Detected (Not Detect); Coronavirus HKU1 Not Detected (Not Detect); Coronavirus NL63 Not Detected (Not Detect); Coronavirus OC43 Not Detected (Not Detect); SARS-CoV-2 Not Detected (Not Detect)
[2020-08-10 23:25] LABS: Bordetella Pertussis Not Detected (Not Detect); Chlamydophila pneumoniae Not Detected (Not Detect); Human Metapneumovirus Not Detected (Not Detect); Human Rhinovirus/Enterovirus Not Detected (Not Detect); Influenza A Subtype 2009 H1 Not Detected (Not Detect); Influenza B Not Detected (Not Detect); Mycoplasma pneumoniae Not Detected (Not Detect); Parainfluenza Virus 1 Not Detected (Not Detect); Parainfluenza Virus 2 Not Detected (Not Detect); Parainfluenza Virus 3 Not Detected (Not Detect); Parainfluenza Virus 4 Not Detected (Not Detect); Respiratory Syncytial Virus Not Detected (Not Detect)
[2020-08-10 23:27] LABS: Bilirubin,Urine Negative (Negative); Blood,Urine Small (Negative); Clarity,Urine Clear (Clear); Color,Urine Light-Yellow (Yellow); Glucose,Urine (UA) Normal (Normal); Ketones,Urine 80 mg/dL (Negative); Leukocyte Esterase,Urine Negative (Negative); Mucus,Urine Few per lpf (None-Few); Nitrite,Urine Negative (Negative); Protein,Urine >=300 mg/dL (Neg-Trace); Specific Gravity,Urine 1.019 (1.010-1.025); Squamous Epithelial Cell,Urine Few per hpf (None-Few); Urobilinogen,Urine Normal (Normal)
[2020-08-11] MEDS ORDERED: Ondansetron ODT 4 MG TAB.RAPDIS SL PRN (00:17)
[2020-08-11] MEDS ORDERED: Acetaminophen 325 MG TABLET PO PRN (00:17)
[2020-08-11 01:04] LABS: Phosphorous 2.7 mg/dL (2.7-4.5)
[2020-08-11] MEDS ORDERED: Ringers Solution, Lactated 1,000 ML IVC ONE (01:11)
[2020-08-11] MEDS ORDERED: Nicotine 21 MG PATCH.TD24 TD PRN (01:14)
[2020-08-11] MEDS ORDERED: *HR* Labetalol 20 MG/4 ML SYRINGE IVP PRN (01:14)
[2020-08-11] MEDS ORDERED: Aspirin 325 MG TABLET PO ONE (01:39)
[2020-08-11] MEDS: lisinopriL 20 MG TABLET PO SCH ×2 (01:45→09:47)
[2020-08-11] MEDS: predniSONE 20 MG TABLET PO SCH (01:45)
[2020-08-11] MEDS: Melatonin 3 MG TABLET PO SCH ×2 (01:45→22:00)
[2020-08-11] MEDS: amLODIPine 5 MG TABLET PO SCH ×2 (01:45→12:44)
[2020-08-11] MEDS ORDERED: Azithromycin 500 MG in 0.9 % Sodium Chloride 250 ML IVPB SCH (02:00)
[2020-08-11 02:34] LABS: Hematocrit 44.2 % (35.3-44.9); Hemoglobin 14.7 g/dL (11.5-15.4); Mean Corpuscular HGB Conc 33.3 g/dL (31.6-35.5); Mean Corpuscular Hemoglobin 27.4 pg (28.0-33.3); Mean Corpuscular Volume 82.3 fL (83.0-100.0); Mean Platelet Volume 10.3 fL (9.4-12.4); Platelet Count 263 K/mcL (140-400); Red Blood Count 5.37 M/mcL (3.82-4.97); Red Cell Distribution Width 14.4 % (11.5-14.5); White Blood Count 13.5 K/mcL (4.3-11.1)
[2020-08-11 02:53] LABS: BUN/Creatinine Ratio 19 (6-26); Blood Urea Nitrogen 13 mg/dL (8-23); Carbon Dioxide 22 mEq/L (23-29); Chloride 102 mEq/L (98-107); Glucose 107 mg/dL (70-105); Magnesium 2.1 mg/dL (1.6-2.6); Osmolality,Calculated 283 (280-300); Potassium 3.2 mEq/L (3.5-5.1); Sodium 136 mEq/L (136-145); eGFR For African Americans > 60 (> 60); eGFR For Non-African Americans > 60 (> 60)
[2020-08-11] MEDS: Ipratropium/Albuterol Neb 3 ML IH SCH ×6 (04:20→23:45)
[2020-08-11] MEDS: *HR* Enoxaparin 40 MG/0.4 ML SYRINGE SQ SCH (06:04)
[2020-08-11] MEDS: Aspirin Enteric Coated 81 MG Tablet PO SCH (07:52)
[2020-08-11] MEDS ORDERED: Ipratropium/Albuterol Neb 3 ML IH PRN (08:27)
[2020-08-11] MEDS ORDERED: Calcium Gluconate 1gm/50mL 1 GM/50 ML BAG IVPB SCH ×2 (08:30→13:00)
[2020-08-11] MEDS ORDERED: levoFLOXacin 750 MG/150 ML 750 MG/150 ML BAG IVPB SCH (09:00)
[2020-08-11] MEDS: MetroNIDAZOLE 500 MG/100 ML 500 MG/100 ML BAG IVPB SCH ×2 (09:49→16:18)
[2020-08-11] MEDS ORDERED: Isovue-370 500 ML BOTTLE IVP ONE (11:04)
[2020-08-11] MEDS: Budesonide/Formoterol 80/4.5 1 PUFF INH IH SCH ×2 (11:48→20:25)
[2020-08-11 12:24] LABS: INR 1.1; Prothrombin Time 12.9 Seconds (9.4-12.1)
[2020-08-11 12:27] LABS: Activated Partial Thrombo Time 34.4 Seconds (26.0-36.0)
[2020-08-11 12:41] LABS: ABG Base Excess -1 mEq/L (-2 to 3); ABG HCO3 23 mEq/L (21-27); ABG Oxygen Saturation 93 % (95-98); ABG PCO2 34 mmHg (35-45); ABG PH 7.45 pH Units (7.32-7.45); ABG PO2 63 mmHg (85-104); ABG TCO2 24 mEq/L (20-26)
[2020-08-11] MEDS: Mirtazapine 15 MG TABLET PO SCH (22:00)
[2020-08-12] MEDS: Ipratropium/Albuterol Neb 3 ML IH SCH ×5 (03:49→20:38)
[2020-08-12 04:16] LABS: Basophils % 0.2 %; Eosinophils # 0.1 K/mcL (0.0-0.6); Eosinophils % 0.7 %; Hematocrit 34.6 % (35.3-44.9); Immature Granulocytes % 0.6 % (0-4); Lymphocytes # 1.5 K/mcL (0.6-4.6); Lymphocytes % 16.8 %; Mean Corpuscular HGB Conc 33.8 g/dL (31.6-35.5); Mean Corpuscular Hemoglobin 27.1 pg (28.0-33.3); Mean Corpuscular Volume 80.3 fL (83.0-100.0); Mean Platelet Volume 10.2 fL (9.4-12.4); Monocytes # 0.5 K/mcL (0.0-1.3); Monocytes % 6.1 %; Neutrophils # 6.7 K/mcL (1.6-8.9); Platelet Count 182 K/mcL (140-400); Red Blood Count 4.31 M/mcL (3.82-4.97); Red Cell Distribution Width 14.7 % (11.5-14.5); Segmented Neutrophils % 75.6 %; White Blood Count 8.9 K/mcL (4.3-11.1)
[2020-08-12 04:20] LABS: Hemoglobin 11.7 g/dL (11.5-15.4)
[2020-08-12 04:45] LABS: BUN/Creatinine Ratio 16 (6-26); Blood Urea Nitrogen 13 mg/dL (8-23); Calcium 8.4 mg/dL (8.6-10.3); Carbon Dioxide 26 mEq/L (23-29); Chloride 107 mEq/L (98-107); Glucose 121 mg/dL (70-105); Magnesium 1.6 mg/dL (1.6-2.6); Osmolality,Calculated 291 (280-300); Phosphorous 2.3 mg/dL (2.7-4.5); Potassium 3.4 mEq/L (3.5-5.1); Sodium 140 mEq/L (136-145); eGFR For African Americans > 60 (> 60); eGFR For Non-African Americans > 60 (> 60)
[2020-08-12] MEDS: *HR* Enoxaparin 40 MG/0.4 ML SYRINGE SQ SCH (04:59)
[2020-08-12] MEDS: Budesonide/Formoterol 80/4.5 1 PUFF INH IH SCH ×2 (07:55→20:45)
[2020-08-12] MEDS: Aspirin Enteric Coated 81 MG Tablet PO SCH (08:13)
[2020-08-12] MEDS: predniSONE 20 MG TABLET PO SCH (08:14)
[2020-08-12] MEDS: lisinopriL 20 MG TABLET PO SCH (08:14)
[2020-08-12] MEDS: amLODIPine 5 MG TABLET PO SCH (08:14)
[2020-08-12] MEDS: Calcium Gluconate 1gm/50mL 1 GM/50 ML BAG IVPB SCH ×2 (08:15→09:25)
[2020-08-12 10:28] LABS: Hematocrit 35.9 % (35.3-44.9); Hemoglobin 11.8 g/dL (11.5-15.4)
[2020-08-12] MEDS ORDERED: Isovue-370 500 ML BOTTLE IVP ONE (19:08)
[2020-08-12] MEDS: Melatonin 3 MG TABLET PO SCH (19:51)
[2020-08-12] MEDS: Mirtazapine 15 MG TABLET PO SCH (19:51)
[2020-08-13] MEDS: Ipratropium/Albuterol Neb 3 ML IH SCH ×4 (00:09→09:59)
[2020-08-13 04:25] LABS: Basophils % 0.3 %; Eosinophils # 0.1 K/mcL (0.0-0.6); Eosinophils % 0.9 %; Hematocrit 35.3 % (35.3-44.9); Hemoglobin 11.5 g/dL (11.5-15.4); Immature Granulocytes % 0.5 % (0-4); Lymphocytes # 1.8 K/mcL (0.6-4.6); Lymphocytes % 23.3 %; Mean Corpuscular HGB Conc 32.6 g/dL (31.6-35.5); Mean Corpuscular Hemoglobin 26.8 pg (28.0-33.3); Mean Corpuscular Volume 82.3 fL (83.0-100.0); Mean Platelet Volume 10.5 fL (9.4-12.4); Monocytes # 0.7 K/mcL (0.0-1.3); Monocytes % 8.8 %; Neutrophils # 5.2 K/mcL (1.6-8.9); Platelet Count 181 K/mcL (140-400); Red Blood Count 4.29 M/mcL (3.82-4.97); Red Cell Distribution Width 15.3 % (11.5-14.5); Segmented Neutrophils % 66.2 %; White Blood Count 7.9 K/mcL (4.3-11.1)
[2020-08-13 04:37] LABS: BUN/Creatinine Ratio 13 (6-26); Blood Urea Nitrogen 12 mg/dL (8-23); Calcium 8.8 mg/dL (8.6-10.3); Carbon Dioxide 30 mEq/L (23-29); Chloride 102 mEq/L (98-107); Glucose 121 mg/dL (70-105); Magnesium 1.9 mg/dL (1.6-2.6); Osmolality,Calculated 287 (280-300); Phosphorous 3.7 mg/dL (2.7-4.5); Potassium 3.5 mEq/L (3.5-5.1); Sodium 138 mEq/L (136-145); eGFR For African Americans > 60 (> 60); eGFR For Non-African Americans 60 (> 60)
[2020-08-13] MEDS: *HR* Enoxaparin 40 MG/0.4 ML SYRINGE SQ SCH (05:53)
[2020-08-13] MEDS: amLODIPine 5 MG TABLET PO SCH (08:11)
[2020-08-13] MEDS: predniSONE 20 MG TABLET PO SCH (08:11)
[2020-08-13] MEDS: Aspirin Enteric Coated 81 MG Tablet PO SCH (08:12)
[2020-08-13] MEDS: lisinopriL 20 MG TABLET PO SCH (08:13)
[2020-08-13 08:20] VITALS: BP 154/72
[2020-08-13] MEDS: Budesonide/Formoterol 80/4.5 1 PUFF INH IH SCH (09:59)
== END 2020-08-13 11:17 | disposition home or self-care (01) ==
LOC: 2NNU 21:43 → EMEROOARM 21:43 → SUATTDRO 08-11 00:07 → 2NNU 08-11 00:36 → 3BNU 08-12 21:59
PROVIDERS: ADMIT Family Medicine; ATTEND Internal Medicine

== ENCOUNTER 2020-12-26 03:42 | Inpatient (IN) ==
[2020-12-26] MEDS ORDERED: Ondansetron 4 MG/2 ML VIAL IVP ONE ×2 (03:48→04:52)
[2020-12-26] MEDS ORDERED: Pantoprazole 80 MG in 0.9 % Sodium Chloride 50 ML IVPB ONE (03:48)
[2020-12-26] MEDS ORDERED: Isovue-370 500 ML BOTTLE IVP ONE ×2 (03:49→05:48)
[2020-12-26] MEDS ORDERED: Melatonin 3 MG TABLET PO ONE (04:19)
[2020-12-26 04:25] LABS: Segmented Neutrophils % 82.5 %
[2020-12-26 04:27] LABS: Basophils # 0.1 K/mcL (0.0-0.2); Basophils % 0.2 %; Eosinophils # 0.1 K/mcL (0.0-0.6); Eosinophils % 0.2 %; Hemoglobin 18.1 g/dL (11.5-15.4); Immature Granulocytes % 0.8 % (0-4); Lymphocytes # 3.6 K/mcL (0.6-4.6); Lymphocytes % 12.5 %; Mean Corpuscular HGB Conc 33.5 g/dL (31.6-35.5); Mean Corpuscular Hemoglobin 27.9 pg (28.0-33.3); Mean Corpuscular Volume 83.2 fL (83.0-100.0); Mean Platelet Volume 10.8 fL (9.4-12.4); Monocytes # 1.1 K/mcL (0.0-1.3); Monocytes % 3.8 %; Neutrophils # 23.6 K/mcL (1.6-8.9); Platelet Count 311 K/mcL (140-400); Red Blood Count 6.49 M/mcL (3.82-4.97); Red Cell Distribution Width 14.4 % (11.5-14.5); White Blood Count 28.6 K/mcL (4.3-11.1)
[2020-12-26 04:32] LABS: Prothrombin Time 12.1 Seconds (9.4-12.1)
[2020-12-26] MEDS ORDERED: 0.9 % Sodium Chloride 1,000 ML IVC ONE ×2 (04:43→06:25)
[2020-12-26 04:47] LABS: Alanine Aminotransferase 18 Units/L (7-52); Albumin 5.2 g/dL (3.5-5.7); Albumin/Globulin Ratio 1.7 (1.1-2.2); Alkaline Phosphatase 127 Units/L (34-104); Amylase 30 Units/L (29-103); Aspartate Amino Transferase 21 Units/L (13-39); BUN/Creatinine Ratio 20 (6-26); Bilirubin,Direct 0.2 mg/dL (0.0-0.2); Bilirubin,Indirect 1.4 mg/dL (0.0-1.0); Bilirubin,Total 1.6 mg/dL (0.3-1.0); Blood Urea Nitrogen 21 mg/dL (8-23); Calcium 10.2 mg/dL (8.6-10.3); Carbon Dioxide 14 mEq/L (23-29); Chloride 98 mEq/L (98-107); Globulin 3.1 g/dL (2.4-3.5); Glucose 301 mg/dL (70-105); Lipase 12 Units/L (11-82); Osmolality,Calculated 298 (280-300); Sodium 137 mEq/L (136-145); Total Protein 8.3 g/dL (6.4-8.9); Troponin I < 0.03 ng/mL (< 0.04); eGFR For African Americans > 60 (> 60); eGFR For Non-African Americans 51 (> 60)
[2020-12-26 05:25] LABS: Magnesium 1.8 mg/dL (1.6-2.6)
[2020-12-26] MEDS ORDERED: Metoclopramide 10 MG/2 ML VIAL IVP ONE (05:38)
[2020-12-26 05:56] LABS: Bilirubin,Urine Negative (Negative); Blood,Urine Small (Negative); Clarity,Urine Clear (Clear); Color,Urine Light-Yellow (Yellow); Glucose,Urine (UA) 500 mg/dL (Normal); Ketones,Urine 40 mg/dL (Negative); Leukocyte Esterase,Urine Negative (Negative); Nitrite,Urine Negative (Negative); PH,Urine 6.5 pH Units (5.0-8.0); Protein,Urine >=300 mg/dL (Neg-Trace); Specific Gravity,Urine > 1.030 (1.010-1.025); Squamous Epithelial Cell,Urine Few per hpf (None-Few); Urobilinogen,Urine Normal (Normal)
[2020-12-26] MEDS ORDERED: Piperacillin/Tazobactam 3.375 GM in 0.9 % Sodium Chloride Mini Bag 100 ML IVPB ONE (06:26)
[2020-12-26] MEDS ORDERED: *HR* Labetalol 20 MG/4 ML SYRINGE IVP ONE (06:26)
[2020-12-26] MEDS ORDERED: *HR* HYDROmorphone (PF) 1 MG/ML SYRINGE IVP ONE (06:27)
[2020-12-26] MEDS ORDERED: Naloxone 0.4 MG/ML INJ IVP PRN (07:33)
[2020-12-26] MEDS: Ringers Solution, Lactated 1,000 ML IVC SCH (12:54)
[2020-12-26] MEDS: Ondansetron 4 MG/2 ML VIAL IVP PRN (13:11)
[2020-12-26] MEDS ORDERED: Lidocaine -MPF 2% 2 ML VIAL ONE (14:06)
[2020-12-26] MEDS ORDERED: *HR* Propofol 200 MG/20 ML VIAL IVP ONE (14:07)
[2020-12-26 14:28] LABS: Estimated Average Glucose 134 mg/dl; Hemoglobin A1C 6.3 %
[2020-12-26] MEDS ORDERED: Piperacillin/Tazobactam 3.375 GM in Water for inj. (sterile) 20 ML IVP ONE (15:00)
[2020-12-26] MEDS: *HR* Heparin 5,000 UNIT/ML VIAL SQ SCH (17:31)
[2020-12-26] MEDS: Pantoprazole 40 MG VIAL IVP SCH (17:31)
[2020-12-26] MEDS: Piperacillin/Tazobactam 3.375 GM in 0.9 % Sodium Chloride Mini Bag 100 ML IVPB SCH (17:32)
[2020-12-27] MEDS: Piperacillin/Tazobactam 3.375 GM in 0.9 % Sodium Chloride Mini Bag 100 ML IVPB SCH ×3 (00:07→16:20)
[2020-12-27] MEDS: Ringers Solution, Lactated 1,000 ML IVC SCH (04:10)
[2020-12-27 05:49] LABS: Basophils % 0.2 %; Eosinophils # 0.1 K/mcL (0.0-0.6); Eosinophils % 1.1 %; Hematocrit 37.9 % (35.3-44.9); Immature Granulocytes % 0.5 % (0-4); Lymphocytes % 24.6 %; Mean Corpuscular HGB Conc 32.2 g/dL (31.6-35.5); Mean Corpuscular Hemoglobin 27.1 pg (28.0-33.3); Mean Platelet Volume 10.6 fL (9.4-12.4); Monocytes % 7.8 %; Platelet Count 192 K/mcL (140-400); Red Blood Count 4.51 M/mcL (3.82-4.97); Red Cell Distribution Width 13.4 % (11.5-14.5); Segmented Neutrophils % 65.8 %
[2020-12-27 05:50] LABS: Hemoglobin 12.2 g/dL (11.5-15.4); White Blood Count 12.2 K/mcL (4.3-11.1)
[2020-12-27] MEDS: *HR* Heparin 5,000 UNIT/ML VIAL SQ SCH ×2 (05:54→16:46)
[2020-12-27] MEDS: Pantoprazole 40 MG VIAL IVP SCH ×2 (05:54→16:45)
[2020-12-27 06:04] LABS: Complement C3 109 mg/dL (87-200)
[2020-12-27 06:07] LABS: Alanine Aminotransferase 16 Units/L (7-52); Albumin 3.8 g/dL (3.5-5.7); Albumin/Globulin Ratio 1.8 (1.1-2.2); Alkaline Phosphatase 76 Units/L (34-104); Aspartate Amino Transferase 22 Units/L (13-39); BUN/Creatinine Ratio 16 (6-26); Bilirubin,Total 1.6 mg/dL (0.3-1.0); Blood Urea Nitrogen 15 mg/dL (8-23); Calcium 8.6 mg/dL (8.6-10.3); Carbon Dioxide 25 mEq/L (23-29); Chloride 105 mEq/L (98-107); Globulin 2.1 g/dL (2.4-3.5); Glucose 113 mg/dL (70-105); Osmolality,Calculated 288 (280-300); Potassium 2.7 mEq/L (3.5-5.1); Sodium 138 mEq/L (136-145); Total Protein 5.9 g/dL (6.4-8.9); eGFR For African Americans > 60 (> 60); eGFR For Non-African Americans > 60 (> 60)
[2020-12-27] MEDS: Ondansetron 4 MG/2 ML VIAL IVP PRN ×3 (09:12→21:37)
[2020-12-27] MEDS: Loratadine 10 MG TABLET PO SCH (09:16)
[2020-12-27] MEDS: Aspirin Enteric Coated 81 MG Tablet PO SCH (09:16)
[2020-12-27] MEDS: amLODIPine 5 MG TABLET PO SCH (16:45)
[2020-12-27 17:01] LABS: BUN/Creatinine Ratio 15 (6-26); Blood Urea Nitrogen 13 mg/dL (8-23); Calcium 8.7 mg/dL (8.6-10.3); Carbon Dioxide 26 mEq/L (23-29); Chloride 103 mEq/L (98-107); Glucose 110 mg/dL (70-105); Osmolality,Calculated 287 (280-300); Potassium 3.2 mEq/L (3.5-5.1); Sodium 138 mEq/L (136-145); eGFR For African Americans > 60 (> 60); eGFR For Non-African Americans > 60 (> 60)
[2020-12-27] MEDS ORDERED: Sucralfate 1 GM TABLET PO SCH (21:00)
[2020-12-28 01:42] LABS: Hemoglobin 13.7 g/dL (11.5-15.4); Mean Corpuscular HGB Conc 32.6 g/dL (31.6-35.5); Mean Corpuscular Volume 82.7 fL (83.0-100.0); Mean Platelet Volume 10.5 fL (9.4-12.4); Platelet Count 215 K/mcL (140-400); Red Blood Count 5.08 M/mcL (3.82-4.97); Red Cell Distribution Width 13.6 % (11.5-14.5); White Blood Count 12.4 K/mcL (4.3-11.1)
[2020-12-28] MEDS ORDERED: Melatonin 3 MG TABLET PO PRN (01:46)
[2020-12-28 01:58] LABS: BUN/Creatinine Ratio 16 (6-26); Blood Urea Nitrogen 14 mg/dL (8-23); Calcium 9.3 mg/dL (8.6-10.3); Carbon Dioxide 26 mEq/L (23-29); Chloride 103 mEq/L (98-107); Glucose 109 mg/dL (70-105); Magnesium 1.8 mg/dL (1.6-2.6); Osmolality,Calculated 287 (280-300); Phosphorous 1.9 mg/dL (2.7-4.5); Potassium 3.7 mEq/L (3.5-5.1); Sodium 138 mEq/L (136-145); eGFR For African Americans > 60 (> 60); eGFR For Non-African Americans > 60 (> 60)
[2020-12-28] MEDS: *HR* Heparin 5,000 UNIT/ML VIAL SQ SCH (06:00)
[2020-12-28] MEDS: Pantoprazole 40 MG VIAL IVP SCH (06:01)
[2020-12-28] MEDS: Aspirin Enteric Coated 81 MG Tablet PO SCH (08:26)
[2020-12-28] MEDS: amLODIPine 5 MG TABLET PO SCH (08:27)
[2020-12-28] MEDS: Loratadine 10 MG TABLET PO SCH (08:28)
[2020-12-28] MEDS ORDERED: lisinopriL 10 MG TABLET PO SCH (09:00)
[2020-12-28 11:09] VITALS: BP 167/105
[2020-12-28 11:37] LABS: Total Volume 24 Hour,Urine 1.95 Liters (0.60-1.60)
[2020-12-28 11:48] LABS: Potassium,Urine 23.6 mEq/L; Protein/Creatinine Ratio,Urine 0.22 mg/mg (0.00-0.20); Sodium, Urine 81.5 mEq/L
[2020-12-29 07:04] LABS: Lambda Qnt Free Light Chains 12.08 mg/L (5.71-26.30)
[2020-12-29 11:14] LABS: ANA IgG by ELISA NONE DETECTED (None Detected); Kappa Qnt Free Light Chains 17.41 mg/L (3.30-19.40); Serine Protease-3 Antibody 0 AU/mL (0-19)
[2020-12-30 19:41] LABS: APTT (LE Anticoag) 44 sec (32-48); Diluted Russell Viper Venom 36 sec (33-44); PT (LE-Anticoag) 13.1 sec (12.0-15.5)
[2020-12-31 08:18] LABS: Alpha 2 Globulin (PEP) 0.88 g/dL (0.48-1.05); Beta Globulin (PEP) 0.77 g/dL (0.48-1.10)
[2020-12-31 10:16] LABS: Immunoglobulin A 230 mg/dL (68-408); Immunoglobulin G 481 mg/dL (768-1632); Immunoglobulin M 141 mg/dL (35-263)
[2020-12-31 10:18] LABS: IFE Reflexed IFE Done
== END 2020-12-28 11:23 | disposition home or self-care (01) | DRG 872 ==
LOC: 2NENU 03:42 → EMEROOARM 03:42 → SUATTDRO 07:32 → 2NENU 08:28
PROVIDERS: ADMIT Internal Medicine; ATTEND Internal Medicine
PROC: ENDOEBX (2020-12-26 14:30)

== ENCOUNTER 2021-03-05 14:16 | Inpatient (IN) ==
[2021-03-05] MEDS ORDERED: Isovue-370 500 ML BOTTLE IVP ONE (14:29)
[2021-03-05] MEDS ORDERED: Ondansetron 4 MG/2 ML VIAL ONE (14:31)
[2021-03-05] MEDS ORDERED: Ondansetron 4 MG/2 ML VIAL IVP ONE (14:46)
[2021-03-05] MEDS ORDERED: *HR* Promethazine 25 MG/ML VIAL IM ONE ×2 (14:50→16:20)
[2021-03-05 15:05] LABS: Basophils % 0.2 %; Eosinophils # 0.1 K/mcL (0.0-0.6); Eosinophils % 0.4 %; Hematocrit 48.1 % (35.3-44.9); Hemoglobin 15.8 g/dL (11.5-15.4); Immature Granulocytes % 0.5 % (0-4); Lymphocytes # 2.8 K/mcL (0.6-4.6); Lymphocytes % 14.5 %; Mean Corpuscular HGB Conc 32.8 g/dL (31.6-35.5); Mean Corpuscular Hemoglobin 27.5 pg (28.0-33.3); Mean Corpuscular Volume 83.8 fL (83.0-100.0); Mean Platelet Volume 10.8 fL (9.4-12.4); Monocytes # 0.8 K/mcL (0.0-1.3); Monocytes % 4.4 %; Neutrophils # 15.4 K/mcL (1.6-8.9); Platelet Count 325 K/mcL (140-400); Red Blood Count 5.74 M/mcL (3.82-4.97); Red Cell Distribution Width 13.4 % (11.5-14.5); White Blood Count 19.3 K/mcL (4.3-11.1)
[2021-03-05] MEDS ORDERED: MetroNIDAZOLE 500 MG/100 ML 500 MG/100 ML BAG IVPB ONE (15:21)
[2021-03-05] MEDS ORDERED: Piperacillin/Tazobactam 3.375 GM in Water for inj. (sterile) 20 ML IVP ONE (15:21)
[2021-03-05 15:28] LABS: INR 1.1; Prothrombin Time 12.3 Seconds (9.4-12.1)
[2021-03-05 15:31] LABS: Activated Partial Thrombo Time 29.4 Seconds (26.0-36.0)
[2021-03-05 15:34] LABS: Alanine Aminotransferase 19 Units/L (7-52); Albumin 4.8 g/dL (3.5-5.7); Albumin/Globulin Ratio 1.6 (1.1-2.2); Alkaline Phosphatase 125 Units/L (34-104); Aspartate Amino Transferase 20 Units/L (13-39); BUN/Creatinine Ratio 19 (6-26); Bilirubin,Total 0.9 mg/dL (0.3-1.0); Blood Urea Nitrogen 19 mg/dL (8-23); Calcium 9.7 mg/dL (8.6-10.3); Carbon Dioxide 22 mEq/L (23-29); Chloride 100 mEq/L (98-107); Glucose 255 mg/dL (70-105); Lipase 11 Units/L (11-82); Magnesium 1.6 mg/dL (1.6-2.6); Osmolality,Calculated 299 (280-300); Potassium 3.4 mEq/L (3.5-5.1); Sodium 139 mEq/L (136-145); Total Protein 7.8 g/dL (6.4-8.9); Troponin I 0.14 ng/mL (< 0.04); eGFR For African Americans > 60 (> 60); eGFR For Non-African Americans 54 (> 60)
[2021-03-05] MEDS: 0.9 % Sodium Chloride 1,000 ML IVC SCH ×2 (15:37→16:06)
[2021-03-05] MEDS ORDERED: *HR* Metoprolol 5 MG/5 ML VIAL IVP ONE (15:53)
[2021-03-05 15:58] LABS: Bilirubin,Urine Negative (Negative); Blood,Urine Small (Negative); Clarity,Urine Clear (Clear); Color,Urine Colorless (Yellow); Glucose,Urine (UA) 500 mg/dL (Normal); Hyaline Casts,Urine Few per lpf (None Seen); Ketones,Urine 60 mg/dL (Negative); Leukocyte Esterase,Urine Negative (Negative); Mucus,Urine Few per lpf (None-Few); Nitrite,Urine Negative (Negative); Protein,Urine >=300 mg/dL (Neg-Trace); Specific Gravity,Urine 1.016 (1.010-1.025); Squamous Epithelial Cell,Urine Few per hpf (None-Few); Urobilinogen,Urine Normal (Normal); WBC,Urine 0-3 per hpf (0-3)
[2021-03-05] MEDS ORDERED: Metoclopramide 10 MG/2 ML VIAL IVP ONE (18:14)
[2021-03-05] MEDS ORDERED: Haloperidol Lactate 5 MG/ML VIAL IVP ONE (18:15)
[2021-03-05] MEDS ORDERED: Pantoprazole 40 MG VIAL IVP ONE (18:15)
[2021-03-05] MEDS ORDERED: Naloxone 0.4 MG/ML INJ IVP PRN (20:54)
[2021-03-05] MEDS ORDERED: Acetaminophen 325 MG TABLET PO PRN (20:54)
[2021-03-05] MEDS ORDERED: Melatonin 3 MG TABLET PO PRN (20:54)
[2021-03-05] MEDS ORDERED: *HR* Labetalol 20 MG/4 ML SYRINGE IVP ONE (20:56)
[2021-03-06] MEDS: *HR* Promethazine 25 MG/ML VIAL IM PRN ×2 (00:27→09:56)
[2021-03-06 03:26] LABS: Influenza A PCR Negative (Negative); Influenza B PCR Negative (Negative); Resp. Syncytial Virus PCR Negative (Negative)
[2021-03-06 04:02] LABS: SARS-CoV-2 by PCR (In House) Negative (Negative)
[2021-03-06] MEDS: Ondansetron 4 MG/2 ML VIAL IVP PRN ×2 (04:49→18:11)
[2021-03-06] MEDS: Pantoprazole 40 MG VIAL IVP SCH ×2 (04:50→17:49)
[2021-03-06] MEDS ORDERED: Dextrose Gel 15 GM/37.5 ML TUBE PO PRN ×2 (06:17)
[2021-03-06] MEDS ORDERED: D5% in Water 1,000 ML IVC PRN (06:17)
[2021-03-06] MEDS ORDERED: *HR* Dextrose 50 % in Water (Vial) 50 ML VIAL IVP PRN (06:17)
[2021-03-06] MEDS ORDERED: Perflutren Lipid Microsphere 1.3 ML in 0.9 % Sodium Chloride 8.7 ML IVP PRN (06:20)
[2021-03-06] MEDS ORDERED: Potassium Chloride 40 MEQ, Lidocaine 1% 2 ML in 0.9 % Sodium Chloride 500 ML IVPB ONE ×2 (06:30→13:59)
[2021-03-06 06:49] LABS: Basophils % 0.2 %; Hematocrit 51.4 % (35.3-44.9); Immature Granulocytes % 0.6 % (0-4); Lymphocytes # 1.9 K/mcL (0.6-4.6); Lymphocytes % 8.3 %; Mean Corpuscular HGB Conc 33.9 g/dL (31.6-35.5); Mean Corpuscular Hemoglobin 27.8 pg (28.0-33.3); Monocytes # 1.2 K/mcL (0.0-1.3); Neutrophils # 19.8 K/mcL (1.6-8.9); Platelet Count 355 K/mcL (140-400); Red Blood Count 6.27 M/mcL (3.82-4.97); Red Cell Distribution Width 13.2 % (11.5-14.5); Segmented Neutrophils % 85.9 %
[2021-03-06 06:50] LABS: Hemoglobin 17.4 g/dL (11.5-15.4)
[2021-03-06 07:19] LABS: Albumin 4.9 g/dL (3.5-5.7); Albumin/Globulin Ratio 1.6 (1.1-2.2); Globulin 3.1 g/dL (2.4-3.5); Phosphorous 3.4 mg/dL (2.7-4.5); Troponin I 0.44 ng/mL (< 0.04)
[2021-03-06] MEDS: Piperacillin/Tazobactam 3.375 GM in 0.9 % Sodium Chloride Mini Bag 100 ML IVPB SCH ×2 (09:57→17:52)
[2021-03-06] MEDS: Ringers Solution, Lactated 1,000 ML IVC SCH ×2 (10:11→22:07)
[2021-03-06] MEDS ORDERED: Metoclopramide 10 MG/2 ML VIAL IVP ONE (10:44)
[2021-03-06] MEDS ORDERED: *HR* Labetalol 20 MG/4 ML SYRINGE IVP ONE ×2 (11:02→11:18)
[2021-03-06] MEDS ORDERED: *HR* Propofol 200 MG/20 ML VIAL IVP ONE (11:02)
[2021-03-06] MEDS ORDERED: *HR* Propofol 500 MG/50 ML BOTTLE IVP ONE (11:02)
[2021-03-06] MEDS ORDERED: Lidocaine -MPF 2% 5 ML VIAL SQ ONE (11:02)
[2021-03-06] MEDS ORDERED: *HR* HYDROmorphone (PF) 1 MG/ML SYRINGE IVP ONE (11:25)
[2021-03-06] MEDS ORDERED: Nicotine 21 MG PATCH.TD24 TD PRN (11:27)
[2021-03-06] MEDS: *HR* Metoprolol 5 MG/5 ML VIAL IVP SCH ×2 (12:00→18:03)
[2021-03-06] MEDS: Insulin LISPRO 300 UNITS/3 ML VIAL SUBQ SCH ×2 (12:00→18:02)
[2021-03-06] MEDS ORDERED: amLODIPine 5 MG TABLET PO SCH (12:30)
[2021-03-06] MEDS ORDERED: carvediloL 6.25 MG TABLET PO SCH (17:00)
[2021-03-06] MEDS ORDERED: Fluticasone Propionate Nasal 50 MCG/SPRAY BOTTLE NS PRN (18:26)
[2021-03-06] MEDS: carvediloL 6.25 MG TABLET PO SCH (20:59)
[2021-03-06] MEDS: Famotidine 20 MG TABLET PO SCH (20:59)
[2021-03-06] MEDS: Sucralfate 1 GM TABLET PO SCH (20:59)
[2021-03-06] MEDS ORDERED: NON-FORMULARY MEDICATION 1 EACH EACH (Omeprazole 40 MG Capsule.Dr) PO SCH (21:00)
[2021-03-06] MEDS: Melatonin 3 MG TABLET PO PRN (22:09)
[2021-03-07] MEDS: *HR* Promethazine 25 MG/ML VIAL IM PRN ×4 (00:11→21:26)
[2021-03-07] MEDS: Piperacillin/Tazobactam 3.375 GM in 0.9 % Sodium Chloride Mini Bag 100 ML IVPB SCH (00:12)
[2021-03-07] MEDS: Insulin LISPRO 300 UNITS/3 ML VIAL SUBQ SCH ×4 (00:22→17:36)
[2021-03-07] MEDS: Ondansetron 4 MG/2 ML VIAL IVP PRN (02:19)
[2021-03-07 05:20] LABS: Basophils # 0.1 K/mcL (0.0-0.2); Basophils % 0.2 %; Hematocrit 42.3 % (35.3-44.9); Immature Granulocytes % 0.7 % (0-4); Lymphocytes # 2.6 K/mcL (0.6-4.6); Lymphocytes % 10.5 %; Mean Corpuscular HGB Conc 34.3 g/dL (31.6-35.5); Mean Corpuscular Hemoglobin 27.8 pg (28.0-33.3); Mean Platelet Volume 10.7 fL (9.4-12.4); Monocytes # 1.4 K/mcL (0.0-1.3); Monocytes % 5.7 %; Neutrophils # 20.6 K/mcL (1.6-8.9); Platelet Count 276 K/mcL (140-400); Red Blood Count 5.22 M/mcL (3.82-4.97); Segmented Neutrophils % 82.9 %; White Blood Count 24.9 K/mcL (4.3-11.1)
[2021-03-07 05:21] LABS: Hemoglobin 14.5 g/dL (11.5-15.4)
[2021-03-07 05:37] LABS: BUN/Creatinine Ratio 25 (6-26); Blood Urea Nitrogen 21 mg/dL (8-23); Calcium 8.4 mg/dL (8.6-10.3); Carbon Dioxide 23 mEq/L (23-29); Chloride 97 mEq/L (98-107); Glucose 155 mg/dL (70-105); Osmolality,Calculated 280 (280-300); Potassium 2.9 mEq/L (3.5-5.1); Sodium 132 mEq/L (136-145); eGFR For African Americans > 60 (> 60); eGFR For Non-African Americans > 60 (> 60)
[2021-03-07] MEDS: Pantoprazole 40 MG VIAL IVP SCH ×2 (06:07→18:03)
[2021-03-07] MEDS: Ringers Solution, Lactated 1,000 ML IVC SCH (06:07)
[2021-03-07] MEDS ORDERED: Potassium Chloride 40 MEQ, Lidocaine 1% 2 ML in 0.9 % Sodium Chloride 500 ML IVPB ONE (07:33)
[2021-03-07] MEDS ORDERED: Isovue-370 500 ML BOTTLE IVP ONE (07:36)
[2021-03-07] MEDS: carvediloL 6.25 MG TABLET PO SCH ×2 (07:54→15:47)
[2021-03-07] MEDS: lisinopriL 20 MG TABLET PO SCH (07:54)
[2021-03-07] MEDS: Sucralfate 1 GM TABLET PO SCH ×4 (07:54→21:26)
[2021-03-07] MEDS: amLODIPine 5 MG TABLET PO SCH (07:54)
[2021-03-07] MEDS: Loratadine 10 MG TABLET PO SCH (07:55)
[2021-03-07 08:10] LABS: Magnesium 1.7 mg/dL (1.6-2.6)
[2021-03-07] MEDS: 0.9 % Sodium Chloride w KCl 40 MEQ/1,000 ML MLS IVC SCH ×2 (08:43→21:26)
[2021-03-07] MEDS: Tiotropium 10 INH DOSE IH SCH (10:18)
[2021-03-07] MEDS: Lidocaine Viscous Oral Soln 15 ML SOLUTION MM PRN (12:16)
[2021-03-07 12:50] LABS: Acinetobacter baumannii by PCR Not Detected (Not Detect); Candida albicans by PCR Not Detected (Not Detect); Candida glabrata by PCR Not Detected (Not Detect); Candida krusei by PCR Not Detected (Not Detect); Candida parapsilosis by PCR Not Detected (Not Detect); Candida tropicalis by PCR Not Detected (Not Detect); Enterobacter cloacae Cmplx PCR Not Detected (Not Detect); Enterobacteriaceae by PCR Not Detected (Not Detect); Enterococcus by PCR Not Detected (Not Detect); Escherichia coli by PCR Not Detected (Not Detect); Klebsiella oxytoca by PCR Not Detected (Not Detect); Klebsiella pneumoniae by PCR Not Detected (Not Detect); Proteus by PCR Not Detected (Not Detect); Pseudomonas aeruginosa by PCR Not Detected (Not Detect); Serratia marcescens by PCR Not Detected (Not Detect); Staphylococcus aureus by PCR Not Detected (Not Detect); Staphylococcus by PCR DETECTED (Not Detect); Streptococcus agalactiae(B)PCR Not Detected (Not Detect); Streptococcus by PCR Not Detected (Not Detect); Streptococcus pneumoniae PCR Not Detected (Not Detect); Streptococcus pyogenes (A) PCR Not Detected (Not Detect); mecA Methicillin-Resist Gene DETECTED (Not Detect)
[2021-03-07 17:53] LABS: BUN/Creatinine Ratio 25 (6-26); Blood Urea Nitrogen 20 mg/dL (8-23); Calcium 8.3 mg/dL (8.6-10.3); Carbon Dioxide 21 mEq/L (23-29); Chloride 99 mEq/L (98-107); Glucose 175 mg/dL (70-105); Osmolality,Calculated 281 (280-300); Potassium 3.3 mEq/L (3.5-5.1); Sodium 132 mEq/L (136-145); eGFR For African Americans > 60 (> 60); eGFR For Non-African Americans > 60 (> 60)
[2021-03-07] MEDS: Famotidine 20 MG TABLET PO SCH (21:25)
[2021-03-08] MEDS: Melatonin 3 MG TABLET PO PRN (02:17)
[2021-03-08 03:38] LABS: Basophils % 0.1 %; Eosinophils % 0.1 %; Hematocrit 40.6 % (35.3-44.9); Immature Granulocytes % 0.6 % (0-4); Lymphocytes # 2.4 K/mcL (0.6-4.6); Lymphocytes % 15.3 %; Mean Corpuscular HGB Conc 34.5 g/dL (31.6-35.5); Mean Corpuscular Hemoglobin 28.5 pg (28.0-33.3); Mean Corpuscular Volume 82.5 fL (83.0-100.0); Mean Platelet Volume 10.8 fL (9.4-12.4); Monocytes # 1.2 K/mcL (0.0-1.3); Monocytes % 7.6 %; Neutrophils # 11.8 K/mcL (1.6-8.9); Platelet Count 257 K/mcL (140-400); Red Blood Count 4.92 M/mcL (3.82-4.97); Red Cell Distribution Width 13.4 % (11.5-14.5); Segmented Neutrophils % 76.3 %; White Blood Count 15.5 K/mcL (4.3-11.1)
[2021-03-08 03:46] LABS: BUN/Creatinine Ratio 26 (6-26); Blood Urea Nitrogen 19 mg/dL (8-23); Calcium 8.1 mg/dL (8.6-10.3); Carbon Dioxide 20 mEq/L (23-29); Chloride 101 mEq/L (98-107); Glucose 125 mg/dL (70-105); Osmolality,Calculated 280 (280-300); Potassium 3.3 mEq/L (3.5-5.1); Sodium 133 mEq/L (136-145); eGFR For African Americans > 60 (> 60); eGFR For Non-African Americans > 60 (> 60)
[2021-03-08] MEDS: Insulin LISPRO 300 UNITS/3 ML VIAL SUBQ SCH ×4 (03:53→18:09)
[2021-03-08] MEDS: *HR* Promethazine 25 MG/ML VIAL IM PRN (04:45)
[2021-03-08] MEDS: Pantoprazole 40 MG VIAL IVP SCH ×2 (04:45→16:56)
[2021-03-08] MEDS: Tiotropium 10 INH DOSE IH SCH (07:38)
[2021-03-08] MEDS: Lidocaine Viscous Oral Soln 15 ML SOLUTION MM PRN (09:43)
[2021-03-08] MEDS: amLODIPine 5 MG TABLET PO SCH (09:44)
[2021-03-08] MEDS: carvediloL 6.25 MG TABLET PO SCH ×2 (09:45→16:57)
[2021-03-08] MEDS: Loratadine 10 MG TABLET PO SCH (09:46)
[2021-03-08] MEDS: lisinopriL 20 MG TABLET PO SCH (09:46)
[2021-03-08] MEDS: 0.9 % Sodium Chloride w KCl 40 MEQ/1,000 ML MLS IVC SCH ×2 (09:49→20:01)
[2021-03-08] MEDS: Sucralfate 1 GM TABLET PO SCH ×4 (09:55→22:04)
[2021-03-08] MEDS: Prochlorperazine 10 MG/2 ML VIAL IVP PRN ×2 (12:03→19:56)
[2021-03-08] MEDS: Famotidine 20 MG TABLET PO SCH (19:56)
[2021-03-09] MEDS: Insulin LISPRO 300 UNITS/3 ML VIAL SUBQ SCH ×4 (00:58→18:04)
[2021-03-09] MEDS: Prochlorperazine 10 MG/2 ML VIAL IVP PRN (02:32)
[2021-03-09 02:40] LABS: Basophils % 0.1 %; Eosinophils # 0.1 K/mcL (0.0-0.6); Eosinophils % 0.7 %; Hematocrit 36.3 % (35.3-44.9); Hemoglobin 11.9 g/dL (11.5-15.4); Immature Granulocytes % 0.3 % (0-4); Lymphocytes # 2.7 K/mcL (0.6-4.6); Mean Corpuscular HGB Conc 32.8 g/dL (31.6-35.5); Mean Corpuscular Hemoglobin 27.2 pg (28.0-33.3); Mean Corpuscular Volume 83.1 fL (83.0-100.0); Mean Platelet Volume 10.1 fL (9.4-12.4); Monocytes # 1.1 K/mcL (0.0-1.3); Monocytes % 10.6 %; Neutrophils # 6.4 K/mcL (1.6-8.9); Platelet Count 167 K/mcL (140-400); Red Blood Count 4.37 M/mcL (3.82-4.97); Red Cell Distribution Width 12.9 % (11.5-14.5); Segmented Neutrophils % 62.3 %; White Blood Count 10.3 K/mcL (4.3-11.1)
[2021-03-09 03:03] LABS: BUN/Creatinine Ratio 23 (6-26); Blood Urea Nitrogen 17 mg/dL (8-23); Calcium 7.7 mg/dL (8.6-10.3); Carbon Dioxide 24 mEq/L (23-29); Chloride 104 mEq/L (98-107); Glucose 102 mg/dL (70-105); Osmolality,Calculated 280 (280-300); Potassium 3.5 mEq/L (3.5-5.1); Sodium 134 mEq/L (136-145); eGFR For African Americans > 60 (> 60); eGFR For Non-African Americans > 60 (> 60)
[2021-03-09] MEDS: Pantoprazole 40 MG VIAL IVP SCH ×2 (05:20→18:06)
[2021-03-09] MEDS: 0.9 % Sodium Chloride w KCl 40 MEQ/1,000 ML MLS IVC SCH ×2 (05:22→12:07)
[2021-03-09] MEDS: Tiotropium 10 INH DOSE IH SCH (07:39)
[2021-03-09] MEDS: Loratadine 10 MG TABLET PO SCH (08:59)
[2021-03-09] MEDS: Sucralfate 1 GM TABLET PO SCH ×4 (08:59→21:36)
[2021-03-09] MEDS: lisinopriL 20 MG TABLET PO SCH (08:59)
[2021-03-09] MEDS: amLODIPine 5 MG TABLET PO SCH (08:59)
[2021-03-09] MEDS: carvediloL 6.25 MG TABLET PO SCH ×2 (08:59→16:59)
[2021-03-09] MEDS: Famotidine 20 MG TABLET PO SCH (21:36)
[2021-03-10] MEDS: Insulin LISPRO 300 UNITS/3 ML VIAL SUBQ SCH ×2 (00:50→05:37)
[2021-03-10 04:30] VITALS: BP 153/63; PULSE 64; TEMP 98.7; O2SAT 97
[2021-03-10] MEDS: Pantoprazole 40 MG VIAL IVP SCH (06:29)
[2021-03-10] MEDS: Tiotropium 10 INH DOSE IH SCH (07:33)
[2021-03-10] MEDS: Sucralfate 1 GM TABLET PO SCH (09:53)
[2021-03-10] MEDS: Loratadine 10 MG TABLET PO SCH (09:53)
[2021-03-10] MEDS: lisinopriL 20 MG TABLET PO SCH (09:54)
[2021-03-10] MEDS: carvediloL 6.25 MG TABLET PO SCH (09:55)
[2021-03-10] MEDS: amLODIPine 5 MG TABLET PO SCH (09:56)
== END 2021-03-10 11:03 | disposition home or self-care (01) | DRG 380 ==
LOC: EMEROOARM 14:16 → 2NENU 14:16 → SUATTDRO 19:39 → 2NENU 20:16
PROVIDERS: ADMIT Family Medicine; ATTEND Internal Medicine

== ENCOUNTER 2021-07-24 02:46 | Inpatient (IN) ==
[2021-07-24] MEDS ORDERED: 0.9 % Sodium Chloride 1,000 ML IVC ONE (03:00)
[2021-07-24] MEDS ORDERED: Ondansetron 4 MG/2 ML VIAL IVP ONE (03:03)
[2021-07-24 03:12] LABS: Basophils % 0.2 %; Eosinophils # 0.1 K/mcL (0.0-0.6); Eosinophils % 0.3 %; Hemoglobin 16.7 g/dL (11.5-15.4); Immature Granulocytes % 0.6 % (0-4); Lymphocytes # 2.1 K/mcL (0.6-4.6); Lymphocytes % 11.8 %; Mean Corpuscular HGB Conc 34.8 g/dL (31.6-35.5); Mean Corpuscular Hemoglobin 28.2 pg (28.0-33.3); Mean Corpuscular Volume 81.1 fL (83.0-100.0); Mean Platelet Volume 10.4 fL (9.4-12.4); Monocytes # 0.6 K/mcL (0.0-1.3); Monocytes % 3.2 %; Neutrophils # 15.2 K/mcL (1.6-8.9); Platelet Count 312 K/mcL (140-400); Red Blood Count 5.92 M/mcL (3.82-4.97); Red Cell Distribution Width 13.2 % (11.5-14.5); Segmented Neutrophils % 83.9 %; White Blood Count 18.1 K/mcL (4.3-11.1)
[2021-07-24] MEDS ORDERED: Isovue-370 500 ML BOTTLE IVP ONE (03:20)
[2021-07-24 03:34] LABS: Alanine Aminotransferase 38 Units/L (7-52); Albumin 4.7 g/dL (3.5-5.7); Albumin/Globulin Ratio 1.7 (1.1-2.2); Alkaline Phosphatase 103 Units/L (34-104); Aspartate Amino Transferase 27 Units/L (13-39); BUN/Creatinine Ratio 24 (6-26); Bilirubin,Direct 0.2 mg/dL (0.0-0.2); Bilirubin,Indirect 0.9 mg/dL (0.0-1.0); Bilirubin,Total 1.1 mg/dL (0.3-1.0); Blood Urea Nitrogen 24 mg/dL (8-23); Calcium 9.5 mg/dL (8.6-10.3); Carbon Dioxide 23 mEq/L (23-29); Chloride 97 mEq/L (98-107); Globulin 2.8 g/dL (2.4-3.5); Glucose 280 mg/dL (70-105); Lipase 10 Units/L (11-82); Osmolality,Calculated 300 (280-300); Potassium 3.2 mEq/L (3.5-5.1); Sodium 138 mEq/L (136-145); Total Protein 7.5 g/dL (6.4-8.9); Troponin I < 0.03 ng/mL (< 0.04); eGFR For African Americans > 60 (> 60); eGFR For Non-African Americans 55 (> 60)
[2021-07-24] MEDS ORDERED: Famotidine 20 MG/2 ML VIAL IVP ONE (03:53)
[2021-07-24] MEDS ORDERED: Metoclopramide 10 MG/2 ML VIAL IVP ONE (03:53)
[2021-07-24 05:05] LABS: Bilirubin,Urine Negative (Negative); Blood,Urine Small (Negative); Clarity,Urine Clear (Clear); Color,Urine Colorless (Yellow); Glucose,Urine (UA) >=1000 mg/dL (Normal); Ketones,Urine 40 mg/dL (Negative); Leukocyte Esterase,Urine Negative (Negative); Nitrite,Urine Negative (Negative); Protein,Urine 200 mg/dL (Neg-Trace); Specific Gravity,Urine > 1.030 (1.010-1.025); Squamous Epithelial Cell,Urine Few per hpf (None-Few); Urobilinogen,Urine Normal (Normal); WBC,Urine 0-3 per hpf (0-3)
[2021-07-24 05:10] LABS: Amphetamine Screen,Urine Negative ng/mL (Cutoff=1000); Barbiturate Screen,Urine Negative ng/mL (Cutoff=200); Benzodiazepines Screen,Urine Negative ng/mL (Cutoff=200); Cannabinoid Screen,Urine Positive ng/mL (Cutoff = 50); Cocaine Screen,Urine Negative ng/mL (Cutoff= 300); Opiate Screen,Urine Negative ng/mL (Cutoff=300); Phencyclidine Screen,Urine Negative ng/mL (Cutoff=25)
[2021-07-24] MEDS ORDERED: Melatonin 3 MG TABLET PO PRN (06:00)
[2021-07-24] MEDS ORDERED: Acetaminophen 325 MG TABLET PO PRN (06:00)
[2021-07-24] MEDS ORDERED: Naloxone 0.4 MG/ML INJ IVP PRN (06:00)
[2021-07-24] MEDS ORDERED: D5% in Water 1,000 ML IVC PRN (06:08)
[2021-07-24] MEDS ORDERED: Dextrose Gel 15 GM/37.5 ML TUBE PO PRN ×2 (06:08)
[2021-07-24] MEDS ORDERED: *HR* Dextrose 50 % in Water (Syg) 50 ML SYRINGE IVP PRN (06:08)
[2021-07-24] MEDS ORDERED: Ringers Solution, Lactated 1,000 ML IVC ONE (06:09)
[2021-07-24] MEDS ORDERED: Promethazine 50 MG in Ringers Solution, Lactated 1,000 ML IVPB ONE (06:15)
[2021-07-24 06:34] LABS: Estimated Average Glucose 148 mg/dl; Hemoglobin A1C 6.8 %
[2021-07-24] MEDS: *HR* Labetalol 20 MG/4 ML SYRINGE IVP PRN (07:42)
[2021-07-24] MEDS: hydroCHLOROthiazide 25 MG TABLET PO SCH (07:42)
[2021-07-24] MEDS: Aspirin Enteric Coated 81 MG Tablet PO SCH (07:42)
[2021-07-24] MEDS: carvediloL 6.25 MG TABLET PO SCH ×2 (07:42→17:39)
[2021-07-24] MEDS ORDERED: NON-FORMULARY MEDICATION 1 EACH EACH (Melatonin 5 MG Tablet) PO PRN (12:18)
[2021-07-24] MEDS: Insulin LISPRO 300 UNITS/3 ML VIAL SUBQ SCH ×2 (13:08→17:40)
[2021-07-24] MEDS: Ondansetron 4 MG/2 ML VIAL IVP PRN (20:17)
[2021-07-24] MEDS: Famotidine 20 MG TABLET PO SCH (20:17)
[2021-07-25] MEDS: Insulin LISPRO 300 UNITS/3 ML VIAL SUBQ SCH ×4 (00:52→17:13)
[2021-07-25 05:14] LABS: Hematocrit 49.9 % (35.3-44.9); Hemoglobin 17.5 g/dL (11.5-15.4); Lymphocytes # 2.2 K/mcL (0.6-4.6); Mean Corpuscular HGB Conc 35.1 g/dL (31.6-35.5); Mean Corpuscular Hemoglobin 28.5 pg (28.0-33.3); Mean Corpuscular Volume 81.3 fL (83.0-100.0); Mean Platelet Volume 11.2 fL (9.4-12.4); Platelet Count 302 K/mcL (140-400); Red Blood Count 6.14 M/mcL (3.82-4.97); Red Cell Distribution Width 13.3 % (11.5-14.5)
[2021-07-25 05:16] LABS: White Blood Count 27.4 K/mcL (4.3-11.1)
[2021-07-25 05:30] LABS: BUN/Creatinine Ratio 27 (6-26); Blood Urea Nitrogen 29 mg/dL (8-23); Calcium 9.2 mg/dL (8.6-10.3); Carbon Dioxide 22 mEq/L (23-29); Chloride 92 mEq/L (98-107); Glucose 219 mg/dL (70-105); Osmolality,Calculated 287 (280-300); Potassium 3.1 mEq/L (3.5-5.1); Sodium 132 mEq/L (136-145); eGFR For African Americans > 60 (> 60); eGFR For Non-African Americans 51 (> 60)
[2021-07-25] MEDS: Ondansetron 4 MG/2 ML VIAL IVP PRN ×2 (05:34→19:54)
[2021-07-25 05:38] LABS: Monocytes # 1.1 K/mcL (0.0-1.3); Neutrophils # 23.6 K/mcL (1.6-8.9); Platelet Estimate Normal (Normal)
[2021-07-25] MEDS ORDERED: 0.9 % Sodium Chloride 1,000 ML IVC SCH (07:45)
[2021-07-25] MEDS: *HR* Labetalol 20 MG/4 ML SYRINGE IVP PRN (08:10)
[2021-07-25] MEDS: Loratadine 10 MG TABLET PO SCH (08:14)
[2021-07-25] MEDS: Aspirin Enteric Coated 81 MG Tablet PO SCH (08:14)
[2021-07-25] MEDS: Piperacillin/Tazobactam 3.375 GM in 0.9 % Sodium Chloride Mini Bag 100 ML IVPB SCH ×2 (08:14→15:43)
[2021-07-25] MEDS: hydroCHLOROthiazide 25 MG TABLET PO SCH (08:14)
[2021-07-25] MEDS: carvediloL 6.25 MG TABLET PO SCH ×2 (08:14→15:44)
[2021-07-25] MEDS ORDERED: SUMAtriptan 6 MG/0.5 ML SQ ONE (12:14)
[2021-07-25] MEDS ORDERED: Haloperidol Lactate 5 MG/ML VIAL IVP ONE (12:16)
[2021-07-25] MEDS: Pantoprazole 40 MG VIAL IVP SCH (17:17)
[2021-07-25] MEDS: Famotidine 20 MG TABLET PO SCH (19:54)
[2021-07-26] MEDS: Piperacillin/Tazobactam 3.375 GM in 0.9 % Sodium Chloride Mini Bag 100 ML IVPB SCH ×4 (02:09→20:25)
[2021-07-26] MEDS: Insulin LISPRO 300 UNITS/3 ML VIAL SUBQ SCH ×2 (02:10→05:52)
[2021-07-26] MEDS: Pantoprazole 40 MG VIAL IVP SCH ×2 (06:19→17:02)
[2021-07-26] MEDS: *HR* Labetalol 20 MG/4 ML SYRINGE IVP PRN (06:46)
[2021-07-26] MEDS: Loratadine 10 MG TABLET PO SCH (08:11)
[2021-07-26] MEDS: carvediloL 6.25 MG TABLET PO SCH ×2 (08:11→17:02)
[2021-07-26] MEDS: Aspirin Enteric Coated 81 MG Tablet PO SCH (08:11)
[2021-07-26] MEDS: hydroCHLOROthiazide 25 MG TABLET PO SCH (08:11)
[2021-07-26] MEDS: Ondansetron 4 MG/2 ML VIAL IVP PRN ×2 (08:19→23:28)
[2021-07-26 08:53] LABS: Basophils % 0.1 %; Eosinophils % 0.2 %; Hematocrit 40.6 % (35.3-44.9); Immature Granulocytes % 0.6 % (0-4); Lymphocytes # 2.1 K/mcL (0.6-4.6); Lymphocytes % 13.7 %; Mean Corpuscular HGB Conc 34.5 g/dL (31.6-35.5); Mean Corpuscular Hemoglobin 27.9 pg (28.0-33.3); Mean Platelet Volume 10.6 fL (9.4-12.4); Monocytes # 1.2 K/mcL (0.0-1.3); Monocytes % 7.8 %; Neutrophils # 11.8 K/mcL (1.6-8.9); Platelet Count 210 K/mcL (140-400); Red Blood Count 5.01 M/mcL (3.82-4.97); Segmented Neutrophils % 77.6 %; White Blood Count 15.2 K/mcL (4.3-11.1)
[2021-07-26 09:24] LABS: BUN/Creatinine Ratio 27 (6-26); Blood Urea Nitrogen 26 mg/dL (8-23); Calcium 7.7 mg/dL (8.6-10.3); Carbon Dioxide 27 mEq/L (23-29); Chloride 93 mEq/L (98-107); Glucose 128 mg/dL (70-105); Osmolality,Calculated 280 (280-300); Potassium 2.4 mEq/L (3.5-5.1); Sodium 132 mEq/L (136-145); eGFR For African Americans > 60 (> 60); eGFR For Non-African Americans 57 (> 60)
[2021-07-26] MEDS ORDERED: Potassium Chloride Elixir 20 MEQ/15 ML UDC PO ONE (11:11)
[2021-07-26] MEDS ORDERED: Haloperidol Lactate 5 MG/ML VIAL IVP ONE (12:45)
[2021-07-26] MEDS ORDERED: Hyaluronidase 200 UNIT in 0.9 % Sodium Chloride 10 ML SQ ONE (16:56)
[2021-07-26] MEDS: Famotidine 20 MG TABLET PO SCH (19:58)
[2021-07-27 01:15] LABS: Basophils % 0.2 %; Eosinophils % 0.4 %; Hematocrit 37.4 % (35.3-44.9); Immature Granulocytes % 0.5 % (0-4); Lymphocytes % 18.9 %; Mean Corpuscular HGB Conc 34.8 g/dL (31.6-35.5); Mean Corpuscular Volume 80.6 fL (83.0-100.0); Mean Platelet Volume 10.1 fL (9.4-12.4); Monocytes # 1.1 K/mcL (0.0-1.3); Monocytes % 10.3 %; Neutrophils # 7.3 K/mcL (1.6-8.9); Platelet Count 178 K/mcL (140-400); Red Blood Count 4.64 M/mcL (3.82-4.97); Red Cell Distribution Width 12.7 % (11.5-14.5); Segmented Neutrophils % 69.7 %; White Blood Count 10.4 K/mcL (4.3-11.1)
[2021-07-27 01:35] LABS: BUN/Creatinine Ratio 24 (6-26); Blood Urea Nitrogen 23 mg/dL (8-23); Calcium 7.8 mg/dL (8.6-10.3); Carbon Dioxide 26 mEq/L (23-29); Chloride 90 mEq/L (98-107); Glucose 114 mg/dL (70-105); Osmolality,Calculated 275 (280-300); Potassium 2.4 mEq/L (3.5-5.1); Sodium 130 mEq/L (136-145); eGFR For African Americans > 60 (> 60); eGFR For Non-African Americans 57 (> 60)
[2021-07-27] MEDS: Potassium Chloride Elixir 20 MEQ/15 ML UDC PO ONE ×2 (02:01→02:10)
[2021-07-27] MEDS: Piperacillin/Tazobactam 3.375 GM in 0.9 % Sodium Chloride Mini Bag 100 ML IVPB SCH ×3 (05:44→20:45)
[2021-07-27] MEDS: Pantoprazole 40 MG VIAL IVP SCH ×2 (05:44→16:49)
[2021-07-27] MEDS: carvediloL 6.25 MG TABLET PO SCH ×2 (08:59→16:49)
[2021-07-27] MEDS: hydroCHLOROthiazide 25 MG TABLET PO SCH (08:59)
[2021-07-27] MEDS: Aspirin Enteric Coated 81 MG Tablet PO SCH (08:59)
[2021-07-27] MEDS: Loratadine 10 MG TABLET PO SCH (09:00)
[2021-07-27] MEDS: Ondansetron 4 MG/2 ML VIAL IVP PRN (09:07)
[2021-07-27] MEDS ORDERED: Haloperidol Oral Conc 10 MG/5 ML UDC PO ONE (10:11)
[2021-07-27] MEDS ORDERED: POTASSIUM CHLORIDE IN 0.9%NACL 40 MEQ/1,000 ML IV.SOLN IV ONE (12:47)
[2021-07-27] MEDS ORDERED: 0.9 % Sodium Chloride w KCl 40 MEQ/1,000 ML MLS IVC SCH (13:00)
[2021-07-27] MEDS: Famotidine 20 MG TABLET PO SCH (20:45)
[2021-07-28 01:48] LABS: Basophils % 0.2 %; Eosinophils # 0.1 K/mcL (0.0-0.6); Eosinophils % 0.8 %; Hematocrit 37.6 % (35.3-44.9); Hemoglobin 13.1 g/dL (11.5-15.4); Immature Granulocytes % 0.4 % (0-4); Lymphocytes # 2.7 K/mcL (0.6-4.6); Lymphocytes % 23.5 %; Mean Corpuscular HGB Conc 34.8 g/dL (31.6-35.5); Mean Corpuscular Hemoglobin 27.9 pg (28.0-33.3); Mean Platelet Volume 10.4 fL (9.4-12.4); Monocytes # 1.3 K/mcL (0.0-1.3); Monocytes % 11.1 %; Neutrophils # 7.5 K/mcL (1.6-8.9); Platelet Count 201 K/mcL (140-400); Red Cell Distribution Width 12.4 % (11.5-14.5); White Blood Count 11.7 K/mcL (4.3-11.1)
[2021-07-28 02:04] LABS: BUN/Creatinine Ratio 21 (6-26); Blood Urea Nitrogen 20 mg/dL (8-23); Calcium 8.5 mg/dL (8.6-10.3); Carbon Dioxide 27 mEq/L (23-29); Chloride 94 mEq/L (98-107); Glucose 127 mg/dL (70-105); Osmolality,Calculated 282 (280-300); Potassium 3.4 mEq/L (3.5-5.1); Sodium 134 mEq/L (136-145); eGFR For African Americans > 60 (> 60); eGFR For Non-African Americans 57 (> 60)
[2021-07-28] MEDS: Piperacillin/Tazobactam 3.375 GM in 0.9 % Sodium Chloride Mini Bag 100 ML IVPB SCH (05:39)
[2021-07-28] MEDS: Pantoprazole 40 MG VIAL IVP SCH (05:40)
[2021-07-28 06:43] VITALS: BP 166/71; PULSE 70; TEMP 98.4
[2021-07-28 07:51] VITALS: O2SAT 94
== END 2021-07-28 11:50 | disposition home or self-care (01) | DRG 392 ==
LOC: EMEROOARM 02:46 → 3BNU 02:46
PROVIDERS: ADMIT Internal Medicine; ATTEND Internal Medicine

== ENCOUNTER 2021-08-14 21:33 | Inpatient (IN) ==
[2021-08-14] MEDS ORDERED: 0.9 % Sodium Chloride 1,000 ML IVC ONE (21:58)
[2021-08-14] MEDS ORDERED: Ondansetron 4 MG/2 ML VIAL IVP ONE (21:59)
[2021-08-14] MEDS ORDERED: Ketorolac 30 MG/ML VIAL IVP ONE (21:59)
[2021-08-14] MEDS ORDERED: Isovue-370 500 ML BOTTLE IVP ONE (22:00)
[2021-08-14 22:10] LABS: Basophils # 0.1 K/mcL (0.0-0.2); Basophils % 0.3 %; Eosinophils # 0.1 K/mcL (0.0-0.6); Eosinophils % 0.7 %; Hematocrit 46.8 % (35.3-44.9); Hemoglobin 15.9 g/dL (11.5-15.4); Immature Granulocytes % 0.6 % (0-4); Lymphocytes # 3.4 K/mcL (0.6-4.6); Lymphocytes % 17.2 %; Mean Corpuscular Hemoglobin 27.7 pg (28.0-33.3); Mean Corpuscular Volume 81.7 fL (83.0-100.0); Mean Platelet Volume 9.7 fL (9.4-12.4); Monocytes # 0.9 K/mcL (0.0-1.3); Monocytes % 4.6 %; Platelet Count 359 K/mcL (140-400); Red Blood Count 5.73 M/mcL (3.82-4.97); Red Cell Distribution Width 13.4 % (11.5-14.5); Segmented Neutrophils % 76.6 %; White Blood Count 19.5 K/mcL (4.3-11.1)
[2021-08-14 22:27] LABS: Alanine Aminotransferase 16 Units/L (7-52); Albumin 4.8 g/dL (3.5-5.7); Albumin/Globulin Ratio 1.5 (1.1-2.2); Alkaline Phosphatase 102 Units/L (34-104); Aspartate Amino Transferase 21 Units/L (13-39); BUN/Creatinine Ratio 22 (6-26); Bilirubin,Direct 0.1 mg/dL (0.0-0.2); Bilirubin,Indirect 0.9 mg/dL (0.0-1.0); Blood Urea Nitrogen 20 mg/dL (8-23); Calcium 9.9 mg/dL (8.6-10.3); Carbon Dioxide 22 mEq/L (23-29); Chloride 97 mEq/L (98-107); Globulin 3.2 g/dL (2.4-3.5); Glucose 213 mg/dL (70-105); Lipase 27 Units/L (11-82); Osmolality,Calculated 293 (280-300); Potassium 3.4 mEq/L (3.5-5.1); Sodium 137 mEq/L (136-145); Troponin I < 0.03 ng/mL (< 0.04); eGFR For African Americans > 60 (> 60); eGFR For Non-African Americans > 60 (> 60)
[2021-08-15] MEDS ORDERED: Ondansetron 4 MG/2 ML VIAL IVP ONE (00:14)
[2021-08-15] MEDS ORDERED: Metoclopramide 10 MG/2 ML VIAL IVP ONE (01:45)
[2021-08-15 03:23] LABS: Bilirubin,Urine Negative (Negative); Blood,Urine Trace (Negative); Clarity,Urine Clear (Clear); Color,Urine Light-Yellow (Yellow); Glucose,Urine (UA) >=1000 mg/dL (Normal); Ketones,Urine 40 mg/dL (Negative); Leukocyte Esterase,Urine Negative (Negative); Mucus,Urine Few per lpf (None-Few); Nitrite,Urine Negative (Negative); PH,Urine 7.5 pH Units (5.0-8.0); Protein,Urine >=300 mg/dL (Neg-Trace); Specific Gravity,Urine 1.014 (1.010-1.025); Urobilinogen,Urine Normal (Normal); WBC,Urine 0-3 per hpf (0-3)
[2021-08-15] MEDS ORDERED: 0.9 % Sodium Chloride 1,000 ML IVC SCH ×2 (03:45→14:15)
[2021-08-15] MEDS ORDERED: *HR* Labetalol 20 MG/4 ML SYRINGE IVP ONE ×3 (03:53→21:03)
[2021-08-15] MEDS ORDERED: *HR* Metoprolol 5 MG/5 ML VIAL IVP ONE (05:03)
[2021-08-15] MEDS ORDERED: Chloraseptic Spray 177 ML BOTTLE MM PRN (05:03)
[2021-08-15] MEDS ORDERED: Naloxone 0.4 MG/ML INJ IVP PRN (05:14)
[2021-08-15] MEDS ORDERED: Dextrose Gel 15 GM/37.5 ML TUBE PO PRN ×2 (05:20)
[2021-08-15] MEDS ORDERED: D5% in Water 1,000 ML IVC PRN (05:20)
[2021-08-15] MEDS ORDERED: *HR* Dextrose 50 % in Water (Syg) 50 ML SYRINGE IVP PRN (05:20)
[2021-08-15] MEDS ORDERED: Acetaminophen IV 500 MG/50 ML BAG IVPB ONE (05:24)
[2021-08-15 05:29] LABS: Influenza A PCR Negative (Negative); Influenza B PCR Negative (Negative); Resp. Syncytial Virus PCR Negative (Negative)
[2021-08-15 05:30] LABS: SARS-CoV-2 by PCR (In House) Negative (Negative)
[2021-08-15] MEDS: Insulin LISPRO 300 UNITS/3 ML VIAL SUBQ SCH ×3 (06:32→17:50)
[2021-08-15] MEDS: Piperacillin/Tazobactam 3.375 GM in 0.9 % Sodium Chloride Mini Bag 100 ML IVPB SCH ×3 (07:50→23:18)
[2021-08-15] MEDS ORDERED: Perflutren Lipid Microsphere 1.3 ML in 0.9 % Sodium Chloride 8.7 ML IVP PRN (07:53)
[2021-08-15] MEDS: DilTIAZem 50 MG in 0.9 % Sodium Chloride 40 ML IVC SCH ×2 (08:50→17:16)
[2021-08-15 10:25] LABS: Estimated Average Glucose 148 mg/dl; Hemoglobin A1C 6.8 %
[2021-08-15] MEDS: Metoclopramide 10 MG/2 ML VIAL IVP PRN (10:26)
[2021-08-15 11:00] LABS: Calcium 10.4 mg/dL (8.6-10.3); Potassium 2.9 mEq/L (3.5-5.1)
[2021-08-15] MEDS ORDERED: *HR* Heparin 5,000 UNIT/ML VIAL IVP PRN ×2 (11:22)
[2021-08-15] MEDS ORDERED: *HR* Heparin 5,000 UNIT/ML VIAL IVP ONE (11:22)
[2021-08-15] MEDS ORDERED: Heparin 25,000 UNIT/250 ML 25,000 UNIT/250 ML IV.SOLN IVC SCH (11:45)
[2021-08-15] MEDS: Ondansetron 4 MG/2 ML VIAL IVP PRN (12:52)
[2021-08-15] MEDS ORDERED: 0.9 % Sodium Chloride 1,000 ML IVC ONE (13:51)
[2021-08-15 14:24] LABS: Basophils # 0.1 K/mcL (0.0-0.2); Basophils % 0.2 %; Hematocrit 52.8 % (35.3-44.9); Immature Granulocytes % 0.9 % (0-4); Lymphocytes # 3.3 K/mcL (0.6-4.6); Lymphocytes % 13.6 %; Mean Corpuscular HGB Conc 33.3 g/dL (31.6-35.5); Mean Corpuscular Hemoglobin 27.2 pg (28.0-33.3); Mean Corpuscular Volume 81.5 fL (83.0-100.0); Mean Platelet Volume 10.1 fL (9.4-12.4); Monocytes # 1.1 K/mcL (0.0-1.3); Monocytes % 4.7 %; Neutrophils # 19.5 K/mcL (1.6-8.9); Platelet Count 461 K/mcL (140-400); Red Blood Count 6.48 M/mcL (3.82-4.97); Red Cell Distribution Width 13.8 % (11.5-14.5); Segmented Neutrophils % 80.6 %; White Blood Count 24.2 K/mcL (4.3-11.1)
[2021-08-15 14:26] LABS: Hemoglobin 17.6 g/dL (11.5-15.4)
[2021-08-15 15:13] LABS: Calcium 9.9 mg/dL (8.6-10.3); Potassium 2.8 mEq/L (3.5-5.1)
[2021-08-15 15:24] LABS: Troponin I 1.09 ng/mL (< 0.04)
[2021-08-15 15:24] LABS: Heparin anti-factor XA UFH 0.98 IU/mL (0.30-0.70)
[2021-08-15 15:25] LABS: INR 1.2; Prothrombin Time 13.3 Seconds (9.4-12.1)
[2021-08-15] MEDS ORDERED: *HR* Metoprolol 5 MG/5 ML VIAL IVP PRN (15:36)
[2021-08-15] MEDS: 0.9 % Sodium Chloride 1,000 ML IVC SCH ×2 (15:43→23:31)
[2021-08-15] MEDS: Famotidine 20 MG/2 ML VIAL IVP SCH (17:12)
[2021-08-15] MEDS: Aspirin Enteric Coated 81 MG Tablet PO SCH (23:18)
[2021-08-16] MEDS: Insulin LISPRO 300 UNITS/3 ML VIAL SUBQ SCH ×4 (01:23→17:36)
[2021-08-16] MEDS ORDERED: Melatonin 3 MG TABLET PO ONE (01:55)
[2021-08-16] MEDS: Ondansetron 4 MG/2 ML VIAL IVP PRN ×4 (02:46→17:50)
[2021-08-16 03:27] LABS: Hematocrit 39.2 % (35.3-44.9); Mean Corpuscular HGB Conc 33.2 g/dL (31.6-35.5); Mean Corpuscular Hemoglobin 27.8 pg (28.0-33.3); Mean Corpuscular Volume 83.9 fL (83.0-100.0); Mean Platelet Volume 9.8 fL (9.4-12.4); Platelet Count 261 K/mcL (140-400); Red Blood Count 4.67 M/mcL (3.82-4.97); Red Cell Distribution Width 13.8 % (11.5-14.5); White Blood Count 19.6 K/mcL (4.3-11.1)
[2021-08-16 03:50] LABS: Alanine Aminotransferase 15 Units/L (7-52); Albumin 3.7 g/dL (3.5-5.7); Albumin/Globulin Ratio 1.6 (1.1-2.2); Alkaline Phosphatase 72 Units/L (34-104); Aspartate Amino Transferase 19 Units/L (13-39); BUN/Creatinine Ratio 25 (6-26); Bilirubin,Total 1.1 mg/dL (0.3-1.0); Blood Urea Nitrogen 27 mg/dL (8-23); Calcium 7.3 mg/dL (8.6-10.3); Carbon Dioxide 25 mEq/L (23-29); Chloride 105 mEq/L (98-107); Chol/HDL Ratio 4.1 (0-4.9); Cholesterol 156 mg/dL (< 200); Globulin 2.3 g/dL (2.4-3.5); Glucose 150 mg/dL (70-105); HDL Cholesterol 38 mg/dL (40-59); LDL Cholesterol,Calculated 84 mg/dL (< 100); Magnesium 1.4 mg/dL (1.6-2.6); Osmolality,Calculated 304 (280-300); Potassium 2.6 mEq/L (3.5-5.1); Sodium 143 mEq/L (136-145); Triglycerides 169 mg/dL (< 150); eGFR For African Americans > 60 (> 60); eGFR For Non-African Americans 50 (> 60)
[2021-08-16] MEDS: 0.9 % Sodium Chloride 1,000 ML IVC SCH ×2 (04:26→15:35)
[2021-08-16] MEDS ORDERED: *HR* LORazepam 2 MG/ML VIAL IVP ONE (04:37)
[2021-08-16] MEDS: Famotidine 20 MG/2 ML VIAL IVP SCH ×2 (05:42→17:50)
[2021-08-16] MEDS: Piperacillin/Tazobactam 3.375 GM in 0.9 % Sodium Chloride Mini Bag 100 ML IVPB SCH ×2 (08:27→15:35)
[2021-08-16] MEDS: Aspirin Enteric Coated 81 MG Tablet PO SCH (08:43)
[2021-08-16] MEDS: *HR* Labetalol 20 MG/4 ML SYRINGE IVP PRN (13:02)
[2021-08-17] MEDS: Insulin LISPRO 300 UNITS/3 ML VIAL SUBQ SCH ×4 (00:42→16:07)
[2021-08-17] MEDS: 0.9 % Sodium Chloride 1,000 ML IVC SCH ×3 (00:43→22:12)
[2021-08-17] MEDS: Piperacillin/Tazobactam 3.375 GM in 0.9 % Sodium Chloride Mini Bag 100 ML IVPB SCH ×3 (00:46→16:07)
[2021-08-17] MEDS: Ondansetron 4 MG/2 ML VIAL IVP PRN ×5 (00:57→22:17)
[2021-08-17] MEDS: Famotidine 20 MG/2 ML VIAL IVP SCH ×2 (05:01→17:55)
[2021-08-17] MEDS: *HR* Labetalol 20 MG/4 ML SYRINGE IVP PRN (05:01)
[2021-08-17 05:18] LABS: Basophils % 0.1 %; Eosinophils % 0.2 %; Hematocrit 38.4 % (35.3-44.9); Hemoglobin 12.8 g/dL (11.5-15.4); Immature Granulocytes % 0.7 % (0-4); Lymphocytes # 2.2 K/mcL (0.6-4.6); Lymphocytes % 14.8 %; Mean Corpuscular HGB Conc 33.3 g/dL (31.6-35.5); Mean Corpuscular Hemoglobin 28.2 pg (28.0-33.3); Mean Corpuscular Volume 84.6 fL (83.0-100.0); Monocytes # 1.2 K/mcL (0.0-1.3); Monocytes % 7.7 %; Neutrophils # 11.6 K/mcL (1.6-8.9); Platelet Count 238 K/mcL (140-400); Red Blood Count 4.54 M/mcL (3.82-4.97); Red Cell Distribution Width 13.6 % (11.5-14.5); Segmented Neutrophils % 76.5 %; White Blood Count 15.1 K/mcL (4.3-11.1)
[2021-08-17 05:21] LABS: BUN/Creatinine Ratio 19 (6-26); Blood Urea Nitrogen 17 mg/dL (8-23); Calcium 7.6 mg/dL (8.6-10.3); Carbon Dioxide 24 mEq/L (23-29); Chloride 101 mEq/L (98-107); Glucose 136 mg/dL (70-105); Magnesium 1.8 mg/dL (1.6-2.6); Osmolality,Calculated 290 (280-300); Phosphorous 1.9 mg/dL (2.7-4.5); Potassium 2.6 mEq/L (3.5-5.1); Sodium 138 mEq/L (136-145); eGFR For African Americans > 60 (> 60); eGFR For Non-African Americans > 60 (> 60)
[2021-08-17] MEDS ORDERED: Potassium Phosphate 44 MEQ in 0.9 % Sodium Chloride 250 ML IVPB ONE (08:40)
[2021-08-17] MEDS: Fluconazole 400 MG/200 ML 400 MG/200 ML BAG IVPB SCH (08:45)
[2021-08-17] MEDS: Metoclopramide 10 MG/2 ML VIAL IVP PRN (08:45)
[2021-08-17] MEDS: Aspirin Enteric Coated 81 MG Tablet PO SCH ×2 (08:45→11:44)
[2021-08-17 09:21] LABS: Hematocrit 38.9 % (35.3-44.9); Hemoglobin 12.9 g/dL (11.5-15.4); Mean Corpuscular HGB Conc 33.2 g/dL (31.6-35.5); Mean Corpuscular Hemoglobin 27.9 pg (28.0-33.3); Mean Corpuscular Volume 84.2 fL (83.0-100.0); Mean Platelet Volume 9.8 fL (9.4-12.4); Platelet Count 225 K/mcL (140-400); Red Blood Count 4.62 M/mcL (3.82-4.97); Red Cell Distribution Width 13.5 % (11.5-14.5); White Blood Count 15.4 K/mcL (4.3-11.1)
[2021-08-17] MEDS: amLODIPine 5 MG TABLET PO SCH (11:44)
[2021-08-17] MEDS ORDERED: Melatonin 3 MG TABLET PO ONE (21:44)
[2021-08-18] MEDS: Piperacillin/Tazobactam 3.375 GM in 0.9 % Sodium Chloride Mini Bag 100 ML IVPB SCH ×4 (00:31→23:45)
[2021-08-18] MEDS: Metoclopramide 10 MG/2 ML VIAL IVP PRN (02:32)
[2021-08-18] MEDS: 0.9 % Sodium Chloride 1,000 ML IVC SCH ×4 (02:33→23:46)
[2021-08-18] MEDS: Famotidine 20 MG/2 ML VIAL IVP SCH ×2 (05:17→17:17)
[2021-08-18 05:33] LABS: Basophils % 0.1 %; Eosinophils # 0.1 K/mcL (0.0-0.6); Eosinophils % 1.1 %; Hematocrit 32.1 % (35.3-44.9); Immature Granulocytes % 0.6 % (0-4); Lymphocytes # 2.1 K/mcL (0.6-4.6); Lymphocytes % 21.2 %; Mean Corpuscular HGB Conc 34.3 g/dL (31.6-35.5); Mean Corpuscular Hemoglobin 28.5 pg (28.0-33.3); Mean Corpuscular Volume 83.2 fL (83.0-100.0); Mean Platelet Volume 9.7 fL (9.4-12.4); Monocytes # 0.9 K/mcL (0.0-1.3); Monocytes % 8.9 %; Neutrophils # 6.7 K/mcL (1.6-8.9); Platelet Count 186 K/mcL (140-400); Red Blood Count 3.86 M/mcL (3.82-4.97); Red Cell Distribution Width 13.2 % (11.5-14.5); Segmented Neutrophils % 68.1 %; White Blood Count 9.8 K/mcL (4.3-11.1)
[2021-08-18 05:50] LABS: BUN/Creatinine Ratio 17 (6-26); Blood Urea Nitrogen 13 mg/dL (8-23); Calcium 7.1 mg/dL (8.6-10.3); Carbon Dioxide 24 mEq/L (23-29); Chloride 101 mEq/L (98-107); Glucose 97 mg/dL (70-105); Magnesium 1.4 mg/dL (1.6-2.6); Osmolality,Calculated 278 (280-300); Phosphorous 1.7 mg/dL (2.7-4.5); Potassium 2.9 mEq/L (3.5-5.1); Sodium 134 mEq/L (136-145); eGFR For African Americans > 60 (> 60); eGFR For Non-African Americans > 60 (> 60)
[2021-08-18] MEDS: amLODIPine 5 MG TABLET PO SCH (09:01)
[2021-08-18] MEDS: Aspirin Enteric Coated 81 MG Tablet PO SCH (09:01)
[2021-08-18] MEDS: Insulin LISPRO 300 UNITS/3 ML VIAL SUBQ SCH ×4 (09:03→20:11)
[2021-08-18] MEDS: Calcium Gluconate 1gm/50mL 1 GM/50 ML BAG IVPB SCH ×2 (12:40→13:39)
[2021-08-18] MEDS: Fluconazole 400 MG/200 ML 400 MG/200 ML BAG IVPB SCH (15:09)
[2021-08-18] MEDS: Ondansetron 4 MG/2 ML VIAL IVP PRN (16:05)
[2021-08-18] MEDS ORDERED: Acetaminophen IV 1,000 MG/100 ML BAG IVPB ONE (21:15)
[2021-08-19] MEDS: 0.9 % Sodium Chloride 1,000 ML IVC SCH ×3 (05:37→23:44)
[2021-08-19] MEDS: Famotidine 20 MG/2 ML VIAL IVP SCH ×2 (05:38→17:12)
[2021-08-19] MEDS: amLODIPine 5 MG TABLET PO SCH (07:59)
[2021-08-19] MEDS: Aspirin Enteric Coated 81 MG Tablet PO SCH (07:59)
[2021-08-19] MEDS: Piperacillin/Tazobactam 3.375 GM in 0.9 % Sodium Chloride Mini Bag 100 ML IVPB SCH ×3 (08:00→23:38)
[2021-08-19 09:06] LABS: Basophils % 0.2 %; Eosinophils # 0.2 K/mcL (0.0-0.6); Eosinophils % 2.2 %; Hematocrit 32.3 % (35.3-44.9); Hemoglobin 11.1 g/dL (11.5-15.4); Immature Granulocytes % 0.7 % (0-4); Lymphocytes # 2.1 K/mcL (0.6-4.6); Lymphocytes % 26.2 %; Mean Corpuscular HGB Conc 34.4 g/dL (31.6-35.5); Mean Corpuscular Hemoglobin 28.4 pg (28.0-33.3); Mean Corpuscular Volume 82.6 fL (83.0-100.0); Mean Platelet Volume 10.3 fL (9.4-12.4); Monocytes # 0.8 K/mcL (0.0-1.3); Monocytes % 10.3 %; Neutrophils # 4.8 K/mcL (1.6-8.9); Platelet Count 189 K/mcL (140-400); Red Blood Count 3.91 M/mcL (3.82-4.97); Red Cell Distribution Width 13.2 % (11.5-14.5); Segmented Neutrophils % 60.4 %
[2021-08-19 09:27] LABS: BUN/Creatinine Ratio 17 (6-26); Blood Urea Nitrogen 11 mg/dL (8-23); Calcium 7.5 mg/dL (8.6-10.3); Carbon Dioxide 25 mEq/L (23-29); Chloride 101 mEq/L (98-107); Glucose 107 mg/dL (70-105); Magnesium 1.5 mg/dL (1.6-2.6); Osmolality,Calculated 278 (280-300); Phosphorous 1.9 mg/dL (2.7-4.5); Potassium 3.1 mEq/L (3.5-5.1); Sodium 134 mEq/L (136-145); eGFR For African Americans > 60 (> 60); eGFR For Non-African Americans > 60 (> 60)
[2021-08-19] MEDS: Ondansetron 4 MG/2 ML VIAL IVP PRN (10:56)
[2021-08-19] MEDS: Insulin LISPRO 300 UNITS/3 ML VIAL SUBQ SCH ×4 (12:00→20:32)
[2021-08-19] MEDS: Fluconazole 400 MG/200 ML 400 MG/200 ML BAG IVPB SCH (20:38)
[2021-08-20 02:08] LABS: Basophils % 0.3 %; Eosinophils # 0.3 K/mcL (0.0-0.6); Hematocrit 35.1 % (35.3-44.9); Hemoglobin 11.5 g/dL (11.5-15.4); Immature Granulocytes % 0.9 % (0-4); Lymphocytes # 2.4 K/mcL (0.6-4.6); Lymphocytes % 23.6 %; Mean Corpuscular HGB Conc 32.8 g/dL (31.6-35.5); Mean Corpuscular Hemoglobin 27.8 pg (28.0-33.3); Mean Platelet Volume 11.1 fL (9.4-12.4); Monocytes # 1.1 K/mcL (0.0-1.3); Monocytes % 10.4 %; Platelet Count 156 K/mcL (140-400); Red Blood Count 4.13 M/mcL (3.82-4.97); Red Cell Distribution Width 13.3 % (11.5-14.5); Segmented Neutrophils % 61.8 %; White Blood Count 10.3 K/mcL (4.3-11.1)
[2021-08-20 02:22] LABS: BUN/Creatinine Ratio 17 (6-26); Blood Urea Nitrogen 11 mg/dL (8-23); Calcium 7.6 mg/dL (8.6-10.3); Carbon Dioxide 20 mEq/L (23-29); Chloride 100 mEq/L (98-107); Glucose 86 mg/dL (70-105); Magnesium 1.8 mg/dL (1.6-2.6); Osmolality,Calculated 265 (280-300); Phosphorous 1.7 mg/dL (2.7-4.5); Potassium 3.1 mEq/L (3.5-5.1); Sodium 128 mEq/L (136-145); eGFR For African Americans > 60 (> 60); eGFR For Non-African Americans > 60 (> 60)
[2021-08-20 02:30] LABS: Neutrophils # 6.4 K/mcL (1.6-8.9)
[2021-08-20 02:31] LABS: Platelet Estimate Normal (Normal)
[2021-08-20] MEDS: Famotidine 20 MG/2 ML VIAL IVP SCH ×2 (05:35→17:39)
[2021-08-20] MEDS: Piperacillin/Tazobactam 3.375 GM in 0.9 % Sodium Chloride Mini Bag 100 ML IVPB SCH ×2 (08:06→14:55)
[2021-08-20] MEDS: 0.9 % Sodium Chloride 1,000 ML IVC SCH ×3 (08:09→23:10)
[2021-08-20] MEDS: Aspirin Enteric Coated 81 MG Tablet PO SCH (08:10)
[2021-08-20] MEDS: amLODIPine 5 MG TABLET PO SCH (08:10)
[2021-08-20] MEDS: Insulin LISPRO 300 UNITS/3 ML VIAL SUBQ SCH ×4 (08:12→20:40)
[2021-08-20] MEDS ORDERED: Fluticasone Propionate Nasal 50 MCG/SPRAY BOTTLE NS PRN (18:52)
[2021-08-20] MEDS: Fluconazole 400 MG/200 ML 400 MG/200 ML BAG IVPB SCH (20:39)
[2021-08-20] MEDS: metroNIDAZOLE 500 MG TABLET PO SCH (20:40)
[2021-08-20] MEDS ORDERED: Famotidine 20 MG TABLET PO SCH ×2 (21:00)
[2021-08-20] MEDS ORDERED: Melatonin 3 MG TABLET PO PRN (22:55)
[2021-08-21 06:50] LABS: Basophils % 0.3 %; Eosinophils # 0.3 K/mcL (0.0-0.6); Eosinophils % 3.3 %; Hematocrit 31.4 % (35.3-44.9); Hemoglobin 10.6 g/dL (11.5-15.4); Immature Granulocytes % 1.4 % (0-4); Lymphocytes # 2.3 K/mcL (0.6-4.6); Lymphocytes % 25.4 %; Mean Corpuscular HGB Conc 33.8 g/dL (31.6-35.5); Mean Corpuscular Hemoglobin 27.8 pg (28.0-33.3); Mean Corpuscular Volume 82.4 fL (83.0-100.0); Mean Platelet Volume 10.5 fL (9.4-12.4); Monocytes % 10.6 %; Neutrophils # 5.3 K/mcL (1.6-8.9); Platelet Count 164 K/mcL (140-400); Red Blood Count 3.81 M/mcL (3.82-4.97); Red Cell Distribution Width 13.4 % (11.5-14.5)
[2021-08-21 07:16] LABS: BUN/Creatinine Ratio 14 (6-26); Blood Urea Nitrogen 9 mg/dL (8-23); Calcium 7.8 mg/dL (8.6-10.3); Carbon Dioxide 25 mEq/L (23-29); Chloride 104 mEq/L (98-107); Glucose 118 mg/dL (70-105); Magnesium 1.2 mg/dL (1.6-2.6); Osmolality,Calculated 284 (280-300); Potassium 2.6 mEq/L (3.5-5.1); Sodium 137 mEq/L (136-145); eGFR For African Americans > 60 (> 60); eGFR For Non-African Americans > 60 (> 60)
[2021-08-21] MEDS: 0.9 % Sodium Chloride 1,000 ML IVC SCH (09:55)
[2021-08-21] MEDS: amLODIPine 5 MG TABLET PO SCH (09:56)
[2021-08-21] MEDS: Aspirin Enteric Coated 81 MG Tablet PO SCH (09:56)
[2021-08-21] MEDS: Insulin LISPRO 300 UNITS/3 ML VIAL SUBQ SCH ×2 (09:56→12:34)
[2021-08-21] MEDS: metroNIDAZOLE 500 MG TABLET PO SCH ×2 (09:56→13:52)
[2021-08-21] MEDS ORDERED: Tiotropium 10 INH DOSE IH SCH (10:00)
[2021-08-21 15:45] VITALS: BP 151/76; PULSE 61; TEMP 98.9; O2SAT 94
== END 2021-08-21 17:27 | disposition home or self-care (01) | DRG 871 ==
LOC: 3ANU 21:33 → EMEROOARM 21:33 → 3ANU 08-15 05:23 → SUATTDRO 08-15 15:04
PROVIDERS: ADMIT Internal Medicine; ATTEND Family Medicine

== ENCOUNTER 2021-09-30 11:51 | Inpatient (IN) ==
[2021-09-30] MEDS ORDERED: 0.9 % Sodium Chloride 1,000 ML IVC ONE ×2 (12:17→16:57)
[2021-09-30] MEDS ORDERED: Ondansetron 4 MG/2 ML VIAL IVP ONE (12:20)
[2021-09-30] MEDS ORDERED: *HR* FentaNYL (PF) 100 MCG/2 ML VIAL IVP ONE (12:21)
[2021-09-30] MEDS ORDERED: Isovue-370 500 ML BOTTLE IVP ONE ×2 (12:22→18:14)
[2021-09-30 12:33] LABS: Basophils % 0.1 %; Eosinophils % 0.1 %; Hematocrit 46.6 % (35.3-44.9); Hemoglobin 15.8 g/dL (11.5-15.4); Immature Granulocytes % 0.7 % (0-4); Lymphocytes # 2.4 K/mcL (0.6-4.6); Lymphocytes % 14.7 %; Mean Corpuscular HGB Conc 33.9 g/dL (31.6-35.5); Mean Corpuscular Hemoglobin 28.1 pg (28.0-33.3); Mean Corpuscular Volume 82.9 fL (83.0-100.0); Mean Platelet Volume 11.1 fL (9.4-12.4); Monocytes # 0.5 K/mcL (0.0-1.3); Monocytes % 3.2 %; Neutrophils # 13.4 K/mcL (1.6-8.9); Platelet Count 374 K/mcL (140-400); Red Blood Count 5.62 M/mcL (3.82-4.97); Red Cell Distribution Width 13.6 % (11.5-14.5); Segmented Neutrophils % 81.2 %; White Blood Count 16.5 K/mcL (4.3-11.1)
[2021-09-30] MEDS ORDERED: Metoclopramide 10 MG/2 ML VIAL IVP ONE (13:02)
[2021-09-30 13:31] LABS: Alanine Aminotransferase 18 Units/L (7-52); Albumin 4.9 g/dL (3.5-5.7); Albumin/Globulin Ratio 1.5 (1.1-2.2); Alkaline Phosphatase 90 Units/L (34-104); Amylase 30 Units/L (29-103); Aspartate Amino Transferase 31 Units/L (13-39); BUN/Creatinine Ratio 27 (6-26); Bilirubin,Direct 0.1 mg/dL (0.0-0.2); Bilirubin,Indirect 0.8 mg/dL (0.0-1.0); Bilirubin,Total 0.9 mg/dL (0.3-1.0); Blood Urea Nitrogen 36 mg/dL (8-23); Calcium 10.3 mg/dL (8.6-10.3); Carbon Dioxide 20 mEq/L (23-29); Chloride 87 mEq/L (98-107); Globulin 3.3 g/dL (2.4-3.5); Glucose 357 mg/dL (70-105); Lipase 13 Units/L (11-82); Osmolality,Calculated 299 (280-300); Potassium 4.1 mEq/L (3.5-5.1); Sodium 133 mEq/L (136-145); Total Protein 8.2 g/dL (6.4-8.9); Troponin I < 0.03 ng/mL (< 0.04); eGFR For African Americans 48 (> 60); eGFR For Non-African Americans 40 (> 60)
[2021-09-30 13:53] LABS: VBG HCO3 22 mEq/L (21-27); VBG PCO2 25 mmHg (41-51); VBG PH 7.55 pH Units (7.32-7.42); VBG PO2 159 mmHg (25-50)
[2021-09-30 14:59] LABS: Bilirubin,Urine Negative (Negative); Blood,Urine Negative (Negative); Clarity,Urine Clear (Clear); Color,Urine Light-Yellow (Yellow); Glucose,Urine (UA) >=1000 mg/dL (Normal); Ketones,Urine 20 mg/dL (Negative); Leukocyte Esterase,Urine Negative (Negative); Mucus,Urine Few per lpf (None-Few); Nitrite,Urine Negative (Negative); Protein,Urine 50 mg/dL (Neg-Trace); RBC,Urine 0-3 per hpf (0-3); Specific Gravity,Urine > 1.030 (1.010-1.025); Squamous Epithelial Cell,Urine Few per hpf (None-Few); Urobilinogen,Urine Normal (Normal); WBC,Urine 0-3 per hpf (0-3)
[2021-09-30 15:58] LABS: Estimated Average Glucose 137 mg/dl; Hemoglobin A1C 6.4 %
[2021-09-30] MEDS ORDERED: Ondansetron 4 MG/2 ML VIAL IVP STA (16:45)
[2021-09-30] MEDS ORDERED: 0.9 % Sodium Chloride 1,000 ML IV ONE (18:08)
[2021-09-30] MEDS ORDERED: diazePAM 10 MG/2 ML SYRINGE IVP ONE (18:09)
[2021-09-30 19:16] LABS: Influenza A PCR Negative (Negative); Influenza B PCR Negative (Negative); Resp. Syncytial Virus PCR Negative (Negative)
[2021-09-30] MEDS ORDERED: *HR* Promethazine 25 MG/ML VIAL IM ONE (19:23)
[2021-09-30 19:38] LABS: SARS-CoV-2 by PCR (In House) Negative (Negative)
[2021-09-30] MEDS ORDERED: Acetaminophen 325 MG TABLET PO PRN (19:47)
[2021-09-30] MEDS ORDERED: Naloxone 0.4 MG/ML INJ IVP PRN (19:47)
[2021-09-30] MEDS ORDERED: *HR* HYDROcodone/Acet 5/325 mg TABLET PO PRN (19:47)
[2021-09-30] MEDS ORDERED: *HR* Dextrose 50 % in Water (Syg) 50 ML SYRINGE IVP PRN (19:54)
[2021-09-30] MEDS ORDERED: D5% in Water 1,000 ML IVC PRN (19:54)
[2021-09-30] MEDS ORDERED: Dextrose Gel 15 GM/37.5 ML TUBE PO PRN ×2 (19:54)
[2021-09-30] MEDS ORDERED: *HR* Labetalol 20 MG/4 ML SYRINGE IVP ONE (21:28)
[2021-09-30 22:08] LABS: BUN/Creatinine Ratio 25 (6-26); Blood Urea Nitrogen 26 mg/dL (8-23); Calcium 8.9 mg/dL (8.6-10.3); Carbon Dioxide 24 mEq/L (23-29); Chloride 98 mEq/L (98-107); Glucose 226 mg/dL (70-105); Osmolality,Calculated 298 (280-300); Potassium 2.9 mEq/L (3.5-5.1); Sodium 138 mEq/L (136-145); eGFR For African Americans > 60 (> 60); eGFR For Non-African Americans 54 (> 60)
[2021-09-30 22:33] LABS: Basophils % 0.1 %; Hematocrit 41.5 % (35.3-44.9); Immature Granulocytes % 0.5 % (0-4); Lymphocytes # 1.3 K/mcL (0.6-4.6); Lymphocytes % 7.7 %; Mean Corpuscular HGB Conc 34.2 g/dL (31.6-35.5); Mean Corpuscular Hemoglobin 28.2 pg (28.0-33.3); Mean Corpuscular Volume 82.5 fL (83.0-100.0); Mean Platelet Volume 10.8 fL (9.4-12.4); Monocytes # 0.9 K/mcL (0.0-1.3); Monocytes % 5.7 %; Neutrophils # 14.1 K/mcL (1.6-8.9); Platelet Count 283 K/mcL (140-400); Red Blood Count 5.03 M/mcL (3.82-4.97); Red Cell Distribution Width 13.6 % (11.5-14.5); White Blood Count 16.4 K/mcL (4.3-11.1)
[2021-09-30 22:33] LABS: Amphetamine Screen,Urine Negative ng/mL (Cutoff=1000); Barbiturate Screen,Urine Negative ng/mL (Cutoff=200); Benzodiazepines Screen,Urine Negative ng/mL (Cutoff=200); Cannabinoid Screen,Urine Positive ng/mL (Cutoff = 50); Cocaine Screen,Urine Negative ng/mL (Cutoff= 300); Opiate Screen,Urine Negative ng/mL (Cutoff=300); Phencyclidine Screen,Urine Negative ng/mL (Cutoff=25)
[2021-09-30 22:35] LABS: Hemoglobin 14.2 g/dL (11.5-15.4)
[2021-09-30 23:49] LABS: BUN/Creatinine Ratio 24 (6-26); Blood Urea Nitrogen 23 mg/dL (8-23); Calcium 8.9 mg/dL (8.6-10.3); Carbon Dioxide 24 mEq/L (23-29); Chloride 98 mEq/L (98-107); Glucose 236 mg/dL (70-105); Osmolality,Calculated 299 (280-300); Potassium 2.5 mEq/L (3.5-5.1); Sodium 139 mEq/L (136-145); eGFR For African Americans > 60 (> 60); eGFR For Non-African Americans 57 (> 60)
[2021-10-01] MEDS ORDERED: *HR* Labetalol 20 MG/4 ML SYRINGE IVP PRN ×2 (02:03→16:45)
[2021-10-01] MEDS: 0.9 % Sodium Chloride 1,000 ML IVC SCH (03:39)
[2021-10-01] MEDS: Ondansetron 4 MG/2 ML VIAL IVP PRN ×2 (03:39→16:52)
[2021-10-01] MEDS: *HR* Heparin 5,000 UNIT/ML VIAL SQ SCH ×2 (06:10→14:06)
[2021-10-01] MEDS ORDERED: Insulin DETEMIR 100 UNIT/ML X5UNITS SUBQ ONE (06:14)
[2021-10-01 06:30] LABS: Hematocrit 44.8 % (35.3-44.9); Hemoglobin 15.3 g/dL (11.5-15.4); Mean Corpuscular HGB Conc 34.2 g/dL (31.6-35.5); Mean Corpuscular Hemoglobin 28.5 pg (28.0-33.3); Mean Corpuscular Volume 83.6 fL (83.0-100.0); Mean Platelet Volume 10.6 fL (9.4-12.4); Platelet Count 328 K/mcL (140-400); Red Blood Count 5.36 M/mcL (3.82-4.97); Red Cell Distribution Width 13.7 % (11.5-14.5); White Blood Count 24.4 K/mcL (4.3-11.1)
[2021-10-01 06:52] LABS: BUN/Creatinine Ratio 22 (6-26); Blood Urea Nitrogen 22 mg/dL (8-23); Calcium 9.7 mg/dL (8.6-10.3); Carbon Dioxide 28 mEq/L (23-29); Chloride 91 mEq/L (98-107); Glucose 204 mg/dL (70-105); Magnesium 1.7 mg/dL (1.6-2.6); Osmolality,Calculated 287 (280-300); Phosphorous 2.3 mg/dL (2.7-4.5); Sodium 134 mEq/L (136-145); eGFR For African Americans > 60 (> 60); eGFR For Non-African Americans 55 (> 60)
[2021-10-01] MEDS: Pantoprazole 40 MG VIAL IVP SCH (08:14)
[2021-10-01] MEDS: Piperacillin/Tazobactam 3.375 GM in 0.9 % Sodium Chloride Mini Bag 100 ML IVPB SCH ×2 (10:04→16:53)
[2021-10-01 11:52] LABS: BUN/Creatinine Ratio 24 (6-26); Blood Urea Nitrogen 22 mg/dL (8-23); Calcium 9.3 mg/dL (8.6-10.3); Carbon Dioxide 24 mEq/L (23-29); Chloride 94 mEq/L (98-107); Glucose 172 mg/dL (70-105); Osmolality,Calculated 279 (280-300); Potassium 3.1 mEq/L (3.5-5.1); Sodium 131 mEq/L (136-145); eGFR For African Americans > 60 (> 60); eGFR For Non-African Americans > 60 (> 60)
[2021-10-01] MEDS ORDERED: 0.9 % Sodium Chloride 1,000 ML IVC SCH (16:49)
[2021-10-01] MEDS ORDERED: Fluticasone Propionate Nasal 50 MCG/SPRAY BOTTLE NS PRN (16:52)
[2021-10-01] MEDS: Insulin LISPRO 300 UNITS/3 ML VIAL SUBQ SCH (18:12)
[2021-10-01] MEDS: Apixaban 5 MG TABLET PO SCH (20:19)
[2021-10-01] MEDS: Melatonin 3 MG TABLET PO PRN (22:41)
[2021-10-02] MEDS: Piperacillin/Tazobactam 3.375 GM in 0.9 % Sodium Chloride Mini Bag 100 ML IVPB SCH ×4 (01:11→23:15)
[2021-10-02] MEDS: Insulin LISPRO 300 UNITS/3 ML VIAL SUBQ SCH ×3 (02:03→13:37)
[2021-10-02 02:06] LABS: Hematocrit 44.1 % (35.3-44.9); Hemoglobin 15.2 g/dL (11.5-15.4); Mean Corpuscular HGB Conc 34.5 g/dL (31.6-35.5); Mean Corpuscular Hemoglobin 28.7 pg (28.0-33.3); Mean Corpuscular Volume 83.2 fL (83.0-100.0); Mean Platelet Volume 10.3 fL (9.4-12.4); Platelet Count 292 K/mcL (140-400); Red Cell Distribution Width 13.4 % (11.5-14.5); White Blood Count 15.7 K/mcL (4.3-11.1)
[2021-10-02 02:24] LABS: BUN/Creatinine Ratio 21 (6-26); Blood Urea Nitrogen 20 mg/dL (8-23); Calcium 9.1 mg/dL (8.6-10.3); Carbon Dioxide 26 mEq/L (23-29); Chloride 94 mEq/L (98-107); Glucose 141 mg/dL (70-105); Magnesium 2.4 mg/dL (1.6-2.6); Osmolality,Calculated 273 (280-300); Phosphorous 2.6 mg/dL (2.7-4.5); Sodium 129 mEq/L (136-145); eGFR For African Americans > 60 (> 60); eGFR For Non-African Americans 57 (> 60)
[2021-10-02] MEDS ORDERED: Tiotropium 10 INH DOSE IH ONE (08:11)
[2021-10-02] MEDS: Tiotropium 10 INH DOSE IH SCH (08:18)
[2021-10-02] MEDS: Ondansetron 4 MG/2 ML VIAL IVP PRN ×2 (08:32→16:52)
[2021-10-02] MEDS: Pantoprazole 40 MG VIAL IVP SCH (08:33)
[2021-10-02] MEDS: Apixaban 5 MG TABLET PO SCH ×2 (08:34→20:11)
[2021-10-02] MEDS: Aspirin Enteric Coated 81 MG Tablet PO SCH (08:34)
[2021-10-02] MEDS: amLODIPine 5 MG TABLET PO SCH (08:35)
[2021-10-02] MEDS: lisinopriL 20 MG TABLET PO SCH (13:43)
[2021-10-02] MEDS: 0.9 % Sodium Chloride 1,000 ML IVC SCH (14:06)
[2021-10-02 14:19] LABS: BUN/Creatinine Ratio 22 (6-26); Blood Urea Nitrogen 22 mg/dL (8-23); Calcium 9.9 mg/dL (8.6-10.3); Carbon Dioxide 29 mEq/L (23-29); Chloride 90 mEq/L (98-107); Glucose 160 mg/dL (70-105); Osmolality,Calculated 279 (280-300); Potassium 3.3 mEq/L (3.5-5.1); Sodium 131 mEq/L (136-145); eGFR For African Americans > 60 (> 60); eGFR For Non-African Americans 54 (> 60)
[2021-10-02] MEDS: Melatonin 3 MG TABLET PO PRN (23:13)
[2021-10-03] MEDS: Ondansetron 4 MG/2 ML VIAL IVP PRN ×2 (06:34→20:39)
[2021-10-03 06:48] LABS: Basophils % 0.2 %; Eosinophils # 0.1 K/mcL (0.0-0.6); Eosinophils % 0.8 %; Hematocrit 42.9 % (35.3-44.9); Hemoglobin 14.3 g/dL (11.5-15.4); Immature Granulocytes % 0.5 % (0-4); Lymphocytes # 2.8 K/mcL (0.6-4.6); Lymphocytes % 23.5 %; Mean Corpuscular HGB Conc 33.3 g/dL (31.6-35.5); Mean Platelet Volume 10.6 fL (9.4-12.4); Monocytes # 1.2 K/mcL (0.0-1.3); Neutrophils # 7.8 K/mcL (1.6-8.9); Platelet Count 250 K/mcL (140-400); Red Blood Count 5.11 M/mcL (3.82-4.97); Red Cell Distribution Width 13.2 % (11.5-14.5); White Blood Count 11.9 K/mcL (4.3-11.1)
[2021-10-03 07:37] LABS: Calcium 9.1 mg/dL (8.6-10.3); Phosphorous 2.9 mg/dL (2.7-4.5); Potassium 3.7 mEq/L (3.5-5.1)
[2021-10-03] MEDS: Insulin LISPRO 300 UNITS/3 ML VIAL SUBQ SCH ×3 (08:00→18:51)
[2021-10-03] MEDS: Tiotropium 10 INH DOSE IH SCH (08:21)
[2021-10-03] MEDS: Piperacillin/Tazobactam 3.375 GM in 0.9 % Sodium Chloride Mini Bag 100 ML IVPB SCH ×2 (10:08→18:54)
[2021-10-03] MEDS: Apixaban 5 MG TABLET PO SCH ×2 (10:10→20:39)
[2021-10-03] MEDS: Aspirin Enteric Coated 81 MG Tablet PO SCH (10:10)
[2021-10-03] MEDS: amLODIPine 5 MG TABLET PO SCH (10:10)
[2021-10-03] MEDS: Pantoprazole 40 MG VIAL IVP SCH (10:10)
[2021-10-03] MEDS: lisinopriL 20 MG TABLET PO SCH (10:10)
[2021-10-03] MEDS: 0.9 % Sodium Chloride 1,000 ML IVC SCH ×2 (10:13→22:56)
[2021-10-04] MEDS: Piperacillin/Tazobactam 3.375 GM in 0.9 % Sodium Chloride Mini Bag 100 ML IVPB SCH ×2 (00:20→08:51)
[2021-10-04] MEDS: Melatonin 3 MG TABLET PO PRN (00:24)
[2021-10-04 03:49] VITALS: TEMP 98.1
[2021-10-04 06:38] VITALS: BP 128/74; PULSE 73
[2021-10-04 06:52] LABS: BUN/Creatinine Ratio 26 (6-26); Blood Urea Nitrogen 25 mg/dL (8-23); Calcium 8.4 mg/dL (8.6-10.3); Carbon Dioxide 26 mEq/L (23-29); Chloride 98 mEq/L (98-107); Glucose 121 mg/dL (70-105); Osmolality,Calculated 274 (280-300); Potassium 3.3 mEq/L (3.5-5.1); Sodium 129 mEq/L (136-145); eGFR For African Americans > 60 (> 60); eGFR For Non-African Americans 58 (> 60)
[2021-10-04] MEDS: Apixaban 5 MG TABLET PO SCH (08:48)
[2021-10-04] MEDS: amLODIPine 5 MG TABLET PO SCH (08:48)
[2021-10-04] MEDS: lisinopriL 20 MG TABLET PO SCH (08:48)
[2021-10-04] MEDS: Aspirin Enteric Coated 81 MG Tablet PO SCH (08:49)
[2021-10-04] MEDS: Insulin LISPRO 300 UNITS/3 ML VIAL SUBQ SCH ×2 (08:52→12:58)
[2021-10-04] MEDS: Tiotropium 10 INH DOSE IH SCH (08:55)
[2021-10-04 08:56] VITALS: O2SAT 98
== END 2021-10-04 14:30 | disposition home or self-care (01) | DRG 641 ==
LOC: EMEROOARM 11:51 → 3NENU 11:51 → SUATTDRO 19:26 → 3NENU 21:10
PROVIDERS: ADMIT Internal Medicine; ATTEND Internal Medicine

== ENCOUNTER 2022-02-10 18:14 | Inpatient (IN) ==
[2022-02-10 18:56] LABS: Basophils % 0.3 %; Eosinophils # 0.3 K/mcL (0.0-0.6); Eosinophils % 2.7 %; Hematocrit 39.2 % (35.3-44.9); Hemoglobin 13.7 g/dL (11.5-15.4); Immature Granulocytes % 0.3 % (0-4); Lymphocytes # 2.8 K/mcL (0.6-4.6); Lymphocytes % 23.8 %; Mean Corpuscular HGB Conc 34.9 g/dL (31.6-35.5); Mean Corpuscular Hemoglobin 28.5 pg (28.0-33.3); Mean Corpuscular Volume 81.5 fL (83.0-100.0); Mean Platelet Volume 10.2 fL (9.4-12.4); Monocytes % 8.4 %; Neutrophils # 7.6 K/mcL (1.6-8.9); Platelet Count 250 K/mcL (140-400); Red Blood Count 4.81 M/mcL (3.82-4.97); Red Cell Distribution Width 12.3 % (11.5-14.5); Segmented Neutrophils % 64.5 %; White Blood Count 11.7 K/mcL (4.3-11.1)
[2022-02-10 19:04] LABS: BUN/Creatinine Ratio 23 (6-26); Blood Urea Nitrogen 25 mg/dL (8-23); Calcium 9.9 mg/dL (8.6-10.3); Carbon Dioxide 28 mEq/L (23-29); Chloride 95 mEq/L (98-107); Glucose 120 mg/dL (70-105); Osmolality,Calculated 286 (280-300); Potassium 2.6 mEq/L (3.5-5.1); Sodium 135 mEq/L (136-145); Troponin I < 0.03 ng/mL (< 0.04); eGFR For African Americans 60 (> 60); eGFR For Non-African Americans 49 (> 60)
[2022-02-10] MEDS ORDERED: 0.9 % Sodium Chloride 1,000 ML IVC ONE (20:53)
[2022-02-10] MEDS ORDERED: Ondansetron 4 MG/2 ML VIAL IVP ONE (20:55)
[2022-02-11] MEDS ORDERED: Acetaminophen 325 MG TABLET PO PRN (01:33)
[2022-02-11] MEDS ORDERED: Naloxone 0.4 MG/ML INJ IVP PRN (01:33)
[2022-02-11] MEDS ORDERED: Ondansetron 4 MG/2 ML VIAL IVP PRN (01:33)
[2022-02-11] MEDS ORDERED: Melatonin 3 MG TABLET PO ONE ×2 (02:00→23:45)
[2022-02-11 02:09] LABS: Bilirubin,Urine Negative (Negative); Blood,Urine Negative (Negative); Clarity,Urine Clear (Clear); Color,Urine Light-Yellow (Yellow); Glucose,Urine (UA) Normal (Normal); Hyaline Casts,Urine Few per lpf (None Seen); Ketones,Urine Negative (Negative); Leukocyte Esterase,Urine Moderate (Negative); Mucus,Urine Few per lpf (None-Few); Nitrite,Urine Negative (Negative); PH,Urine 6.5 pH Units (5.0-8.0); Protein,Urine Negative (Neg-Trace); Specific Gravity,Urine 1.016 (1.010-1.025); Squamous Epithelial Cell,Urine Few per hpf (None-Few); Urobilinogen,Urine Normal (Normal)
[2022-02-11 02:32] LABS: Adenovirus Not Detected (Not Detect); Bordetella Pertussis Not Detected (Not Detect); Chlamydophila pneumoniae Not Detected (Not Detect); Coronavirus 229E Not Detected (Not Detect); Coronavirus HKU1 Not Detected (Not Detect); Coronavirus NL63 Not Detected (Not Detect); Coronavirus OC43 Not Detected (Not Detect); Human Metapneumovirus Not Detected (Not Detect); Human Rhinovirus/Enterovirus Not Detected (Not Detect); Influenza A Subtype 2009 H1 Not Detected (Not Detect); Influenza B Not Detected (Not Detect); Mycoplasma pneumoniae Not Detected (Not Detect); Parainfluenza Virus 1 Not Detected (Not Detect); Parainfluenza Virus 2 Not Detected (Not Detect); Parainfluenza Virus 3 Not Detected (Not Detect); Parainfluenza Virus 4 Not Detected (Not Detect); Respiratory Syncytial Virus Not Detected (Not Detect); SARS-CoV-2 Not Detected (Not Detect)
[2022-02-11 03:34] LABS: Hematocrit 39.9 % (35.3-44.9); Hemoglobin 13.5 g/dL (11.5-15.4); Mean Corpuscular HGB Conc 33.8 g/dL (31.6-35.5); Mean Corpuscular Hemoglobin 28.2 pg (28.0-33.3); Mean Corpuscular Volume 83.3 fL (83.0-100.0); Mean Platelet Volume 10.5 fL (9.4-12.4); Platelet Count 232 K/mcL (140-400); Red Blood Count 4.79 M/mcL (3.82-4.97); Red Cell Distribution Width 12.5 % (11.5-14.5); White Blood Count 11.7 K/mcL (4.3-11.1)
[2022-02-11] MEDS: 0.9 % Sodium Chloride 1,000 ML IVC SCH ×3 (03:34→22:43)
[2022-02-11] MEDS: cefTRIAXone 1,000 MG in 0.9 % Sodium Chloride 10 ML IVPB SCH (03:34)
[2022-02-11 03:44] LABS: INR 1.2
[2022-02-11 03:46] LABS: Activated Partial Thrombo Time 37.5 Seconds (26.0-36.0)
[2022-02-11 03:56] LABS: Troponin I 0.04 ng/mL (< 0.04)
[2022-02-11 04:17] LABS: Estimated Average Glucose 160 mg/dl; Hemoglobin A1C 7.2 %
[2022-02-11 04:36] LABS: BUN/Creatinine Ratio 21 (6-26); Blood Urea Nitrogen 21 mg/dL (8-23); Calcium 9.4 mg/dL (8.6-10.3); Carbon Dioxide 28 mEq/L (23-29); Chloride 99 mEq/L (98-107); Chol/HDL Ratio 4.9 (0-4.9); Cholesterol 170 mg/dL (< 200); Glucose 148 mg/dL (70-105); HDL Cholesterol 35 mg/dL (40-59); LDL Cholesterol,Calculated 99 mg/dL (< 100); Magnesium 1.7 mg/dL (1.6-2.6); Osmolality,Calculated 292 (280-300); Potassium 2.8 mEq/L (3.5-5.1); Sodium 138 mEq/L (136-145); Triglycerides 182 mg/dL (< 150); eGFR For African Americans > 60 (> 60); eGFR For Non-African Americans 54 (> 60)
[2022-02-11] MEDS: hydroCHLOROthiazide 25 MG TABLET PO SCH (07:52)
[2022-02-11] MEDS: Aspirin Enteric Coated 81 MG Tablet PO SCH (07:53)
[2022-02-11] MEDS: Famotidine 20 MG TABLET PO SCH ×2 (07:53→21:27)
[2022-02-11] MEDS: Apixaban 5 MG TABLET PO SCH ×2 (07:53→21:27)
[2022-02-11] MEDS: carvediloL 6.25 MG TABLET PO SCH ×2 (07:54→17:50)
[2022-02-11] MEDS: Fluticasone Propionate Nasal 50 MCG/SPRAY BOTTLE NS SCH ×2 (09:19→21:27)
[2022-02-11] MEDS ORDERED: Dextrose Gel 15 GM/37.5 ML TUBE PO PRN ×2 (14:20)
[2022-02-11] MEDS ORDERED: D5% in Water 1,000 ML IVC PRN (14:20)
[2022-02-11] MEDS ORDERED: *HR* Dextrose 50 % in Water (Syg) 50 ML SYRINGE IVP PRN (14:20)
[2022-02-11] MEDS: Insulin LISPRO 300 UNITS/3 ML VIAL SUBQ SCH (17:52)
[2022-02-12 05:40] LABS: Mean Corpuscular HGB Conc 32.9 g/dL (31.6-35.5); Mean Corpuscular Hemoglobin 28.4 pg (28.0-33.3); Mean Corpuscular Volume 86.3 fL (83.0-100.0); Mean Platelet Volume 10.4 fL (9.4-12.4); Platelet Count 177 K/mcL (140-400); Red Blood Count 3.94 M/mcL (3.82-4.97); Red Cell Distribution Width 12.6 % (11.5-14.5); White Blood Count 7.7 K/mcL (4.3-11.1)
[2022-02-12 05:50] LABS: Hemoglobin 11.2 g/dL (11.5-15.4)
[2022-02-12 06:58] LABS: BUN/Creatinine Ratio 16 (6-26); Blood Urea Nitrogen 13 mg/dL (8-23); Calcium 8.3 mg/dL (8.6-10.3); Carbon Dioxide 25 mEq/L (23-29); Chloride 107 mEq/L (98-107); Glucose 135 mg/dL (70-105); Osmolality,Calculated 288 (280-300); Potassium 3.2 mEq/L (3.5-5.1); Sodium 138 mEq/L (136-145); eGFR For African Americans > 60 (> 60); eGFR For Non-African Americans > 60 (> 60)
[2022-02-12 08:13] LABS: Magnesium 1.5 mg/dL (1.6-2.6)
[2022-02-12] MEDS: carvediloL 6.25 MG TABLET PO SCH ×2 (08:39→17:06)
[2022-02-12] MEDS: Apixaban 5 MG TABLET PO SCH ×2 (08:39→20:47)
[2022-02-12] MEDS: Famotidine 20 MG TABLET PO SCH ×2 (08:39→20:46)
[2022-02-12] MEDS: Aspirin Enteric Coated 81 MG Tablet PO SCH (08:39)
[2022-02-12] MEDS: hydroCHLOROthiazide 25 MG TABLET PO SCH (08:40)
[2022-02-12] MEDS: Potassium Chloride Elixir 20 MEQ/15 ML UDC PO ONE ×2 (08:40→09:35)
[2022-02-12] MEDS: cefTRIAXone 1,000 MG in 0.9 % Sodium Chloride 10 ML IVPB SCH (08:44)
[2022-02-12] MEDS: 0.9 % Sodium Chloride 1,000 ML IVC SCH ×2 (08:54→19:13)
[2022-02-12] MEDS: Insulin LISPRO 300 UNITS/3 ML VIAL SUBQ SCH ×3 (08:55→17:05)
[2022-02-12] MEDS: Fluticasone Propionate Nasal 50 MCG/SPRAY BOTTLE NS SCH ×2 (09:30→20:46)
[2022-02-13] MEDS ORDERED: Melatonin 3 MG TABLET PO PRN (00:12)
[2022-02-13] MEDS: 0.9 % Sodium Chloride 1,000 ML IVC SCH (04:45)
[2022-02-13 06:49] LABS: Hematocrit 34.4 % (35.3-44.9); Hemoglobin 11.7 g/dL (11.5-15.4); Mean Corpuscular Hemoglobin 29.3 pg (28.0-33.3); Mean Platelet Volume 10.5 fL (9.4-12.4); Platelet Count 192 K/mcL (140-400); Red Cell Distribution Width 12.4 % (11.5-14.5); White Blood Count 7.7 K/mcL (4.3-11.1)
[2022-02-13 07:17] VITALS: BP 146/71; PULSE 83; TEMP 99
[2022-02-13 07:29] LABS: BUN/Creatinine Ratio 19 (6-26); Blood Urea Nitrogen 16 mg/dL (8-23); Calcium 8.9 mg/dL (8.6-10.3); Carbon Dioxide 24 mEq/L (23-29); Chloride 108 mEq/L (98-107); Glucose 131 mg/dL (70-105); Osmolality,Calculated 291 (280-300); Potassium 3.4 mEq/L (3.5-5.1); Sodium 139 mEq/L (136-145); eGFR For African Americans > 60 (> 60); eGFR For Non-African Americans > 60 (> 60)
[2022-02-13] MEDS: Fluticasone Propionate Nasal 50 MCG/SPRAY BOTTLE NS SCH (09:36)
[2022-02-13] MEDS: Insulin LISPRO 300 UNITS/3 ML VIAL SUBQ SCH (09:36)
[2022-02-13] MEDS: hydroCHLOROthiazide 25 MG TABLET PO SCH (09:37)
[2022-02-13] MEDS: Famotidine 20 MG TABLET PO SCH (09:37)
[2022-02-13] MEDS: Aspirin Enteric Coated 81 MG Tablet PO SCH (09:38)
[2022-02-13] MEDS: Apixaban 5 MG TABLET PO SCH (09:38)
[2022-02-13] MEDS: carvediloL 6.25 MG TABLET PO SCH (09:38)
[2022-02-13] MEDS: cefTRIAXone 1,000 MG in 0.9 % Sodium Chloride 10 ML IVPB SCH (09:42)
[2022-02-13 10:19] VITALS: O2SAT 99
== END 2022-02-13 11:42 | disposition home or self-care (01) | DRG 392 ==
LOC: 3BNU 18:14 → EMEROOARM 18:14 → 3BNU 02-11 00:11 → SUATTDRO 02-11 18:54 → 3BNU 02-11 22:39
PROVIDERS: ADMIT Internal Medicine; ATTEND Nurse Practitioner